=== PATIENT | female | born 1995 | race Caucasian/White ===

== ENCOUNTER 2016-03-17 18:38 | Emergency (ER) | payer BC, OTHER ==
[~2016-03-17] VITALS: Ht 170.2 cm; Wt 61.7 kg
[~2016-03-17 18:38] MED LIST: DIPH25CA79 PO; LORA10CA PO; RT-ALBUINH IH
--- OUTSIDE RECORDS SUMMARY | 2016-03-17 18:44 | XMS REPORT | Continuity of Care Document ---
Author Author [facility] Organization [facility] Address Unknown Phone Unavailable Care Team Providers Care Commutator Tester Name Role Phone BRYNN ANDERSEN MD PCP Insurance Providers Payer Name Policy Number Subscriber Name Relationship [facility] [id number] Marlena Bernabe 19 Father Advance Directives Directive Response Recorded Date/Time Advance Directives No 01/20/16 9:15pm Health Care Power of Legal Administrative Secretary No 01/20/16 9:15pm Organ Donor No 01/20/16 9:15pm Resuscitation Status Full Code 01/20/16 9:15pm Chief Complaint and Reason for Visit Chief Complaint -Female Reason for Visit [id number] Problems Active Problems Medical Problem Onset Date Status Dysfunctional uterine bleeding Unknown Acute Early stage of Unknown Acute Medications Current Home Medications Medication Dose Units Route Directions Days/Qty Instructions Start Date Albuterol Sulfate 8.5 Gm 1-2 Puff Inhalation Four Times Daily Diphenhydramine Hcl 25 Mg 25 Mg Oral Every 4HRS as needed for Ad Loratadine 10 Mg 10 Mg Oral Daily as needed for Congestion 01/20/16 Social History Social History Problem Response Recorded Date/Time Alcohol Use Denies Use 01/20/2016 9:15pm Recreational Drug Use No 01/20/2016 9:15pm Recent Foreign Travel No 01/20/2016 9:15pm Recent Infectious Disease Exposure No 01/20/2016 9:15pm Hospitalization with Isolation Denies 01/20/2016 9:15pm Smoking Status Former Smoker 01/20/2016 9:15pm Recent Hopitalizations No 01/20/2016 9:15pm Hospitalization with Isolation Denies 01/20/2016 9:15pm Query Response Start Date Stop Date Smoking Status Former Smoker Hospital Discharge Instructions No hospital discharge instructions. Plan of Care Discharge Date 01/20/16 11:11pm Disposition 01 HOME, SELF-CARE Condition at Discharge Stable Instructions/Education Provided NO INSTRUCTIONS GIVEN Prescriptions See Medication Section Referrals BRYNN ANDERSEN MD - Primary Care Physician Additional Instructions/Education 1. You must follow-up with Dr. Andersen this week. Call her office tomorrow for an appointment time to repeat your hCG levels 2. Tylenol and Benadryl as needed for cramping All discharge instructions reviewed with patient and/or family. Voiced understanding. Functional Status No functional status results. Allergies, Adverse Reactions, Alerts Allergen Type Severity Reaction Status Last Updated Penicillins ([id number]) Allergy Mild Active 12/07/15 peanut ([id number]) Allergy Mild Active 12/07/15 Ibuprofen Allergy Mild Active 12/07/15 Erythromycin base Allergy Mild Active 12/07/15 amoxicillin ([id number]) Allergy Mild Active 12/07/15 cat dander Allergy Mild Active 12/07/15 mold Allergy Mild Active 12/07/15 sesame seed Allergy Mild Active 12/07/15 shrimp Allergy Mild Active 12/07/15 MAPLE TREES Allergy Mild Active 12/07/15 Immunizations No immunization records. Vital Signs Acute Vital Signs Vital Response Date/Time Temperature (Fahrenheit) 98.6 degrees F (97.6 - 99.5) 01/20/2016 9:15pm Temperature (Calculated Celsius) 37.50940 degrees C (36.4 - 37.5) 01/20/2016 9:15pm Temperature Source Temporal 01/20/2016 9:15pm Pulse Rate (adult) 93 bpm (60 - 90) 01/20/2016 9:15pm Respiratory Rate 16 bpm (12 - 24) 01/20/2016 9:15pm O2 Sat by Pulse Oximetry 100 % (88 - 100) 01/20/2016 9:15pm Blood Pressure 113/62 mm Hg 01/20/2016 9:15pm Blood Pressure Mean 79 mm Hg 01/20/2016 9:15pm Pain Numeric Pain Scale 5-Moderate Pain 01/20/2016 9:15pm Height (Feet) 5 feet 01/20/2016 9:15pm Height (Inches) 7 inches 01/20/2016 9:15pm Height (Calculated Centimeters) 170.621540 cm 01/20/2016 9:15pm Weight (Pounds) 130 pounds 01/20/2016 9:15pm Weight (Calculated Grams) 93782.123 gm 01/20/2016 9:15pm Weight (Calculated Kilograms) 58.813096 kilograms 01/20/2016 9:15pm Capillary Refill Capillary Refill Less Than 3 Seconds 01/20/2016 9:15pm Height 5 ft 7 in Weight 130 lb Body Mass Index 20.4 kg/m^2 Results Laboratory Results Test Name Result Units Flags Reference Collection Date/Time Result Date/ Time Comments White Blood Count 10.6 10^3/uL 4.3-11.0 01/20/2016 9:11pm 01/20/2016 9: 22pm Red Blood Count 4.70 10^6/uL 4.35-5.85 01/20/2016 9:1101/20/2016 9: 22pm Hemoglobin 12.8 G/DL 11.5-16.0 01/20/2016 9:1101/20/2016 9:22pm Hematocrit 38 % 35-52 01/20/2016 9:1101/20/2016 9:22pm Mean Corpuscular Volume 82 FL 80-99 01/20/2016 9:1101/20/2016 9: 22pm Mean Corpuscular Hemoglobin 27 PG 25-34 01/20/2016 9:01/20/2016 9: 22pm Mean Corpuscular Hemoglobin Concent 33 G/DL 32-36 01/20/2016 9:1112/2015 9:22pm Red Cell Distribution Width 14.0 % 10.0-14.5 01/20/2016 9:11pm 2015 9:22pm Platelet Count 274 10^3/uL 130-400 01/20/2016 9:1101/20/2016 9:22pm Mean Platelet Volume 9.8 FL 7.4-10.4 01/20/2016 9:11pm 01/20/2016 9: 22pm Neutrophils (%) (Auto) 65 % 42-75 01/20/2016 9:1101/20/2016 9:22pm Lymphocytes (%) (Auto) 25 % 12-44 01/20/2016 9:11pm 01/20/2016 9:22pm Monocytes (%) (Auto) 7 % 0-12 01/20/2016 9:1101/20/2016 9:22pm Eosinophils (%) (Auto) 2 % 0-10 01/20/2016 9:1101/20/2016 9:22pm Basophils (%) (Auto) 0 % 0-10 01/20/2016 9:1101/20/2016 9:22pm Neutrophils # (Auto) 7.0 X 10^3 1.8-7.8 01/20/2016 9:11pm 01/20/2016 9: 22pm Lymphocytes # (Auto) 2.7 X 10^3 1.0-4.0 01/20/2016 9:1101/20/2016 9: 22pm Monocytes # (Auto) 0.7 X 10^3 0.0-1.0 01/20/2016 9:1101/20/2016 9: 22pm Eosinophils # (Auto) 0.2 10^3/uL 0.0-0.3 01/20/2016 9:11pm 01/20/2016 9 :22pm Basophils # (Auto) 0.0 10^3/uL 0.0-0.1 01/20/2016 9:1101/20/2016 9: 22pm Urine Color YELLOW 01/20/2016 9:pm 01/20/2016 9:46pm Urine Clarity SLIGHTLY CLOUDY 01/20/2016 9:15pm 01/20/2016 9:46pm Urine pH 6 5-9 01/20/2016 9:15pm 01/20/2016 9:46pm Urine Specific [place] 1.020 1.016-1.022 01/20/2016 9:15pm 2015 9:46pm Urine Protein NEGATIVE NEGATIVE 01/20/2016 9:15pm 01/20/2016 9:46pm Urine Glucose (UA) NEGATIVE NEGATIVE 01/20/2016 9:15pm 01/20/2016 9: 46pm Urine RBC (Auto) NEGATIVE NEGATIVE 01/20/2016 9:15pm 01/20/2016 9: 46pm Urine Ketones NEGATIVE NEGATIVE 01/20/2016 9:15pm 01/20/2016 9:46pm Urine Nitrite NEGATIVE NEGATIVE 01/20/2016 9:15pm 01/20/2016 9:46pm Urine Bilirubin NEGATIVE NEGATIVE 01/20/2016 9:15pm 01/20/2016 9: 46pm Urine Urobilinogen NORMAL MG/DL NORMAL 01/20/2016 9:15pm 01/20/2016 9: 46pm Urine Leukocyte Esterase NEGATIVE NEGATIVE 01/20/2016 9:15pm 2015 9:46pm Urine RBC RARE /HPF 01/20/2016 9:15pm 01/20/2016 9:46pm Urine WBC 0-2 /HPF 01/20/2016 9:15pm 01/20/2016 9:46pm Urine Bacteria TRACE /HPF 01/20/2016 9:15pm 01/20/2016 9:46pm Urine Squamous Epithelial Cells >50 /HPF * 01/20/2016 9:15pm 2015 9:46pm Urine Renal Epithelial Cells NONE /HPF 01/20/2016 9:15pm 01/20/2016 9 :46pm Urine Crystals NONE /LPF 01/20/2016 9:15pm 01/20/2016 9:46pm Urine Casts NONE /LPF 01/20/2016 9:15pm 01/20/2016 9:46pm Urine Mucus SMALL /LPF * 01/20/2016 9:15pm 01/20/2016 9:46pm Urine Culture Indicated NO 01/20/2016 9:15pm 01/20/2016 9:46pm Procedures No known history of procedures. Encounters Encounter Location Arrival/Admit Date Discharge/Depart Date Attending Provider Departed Emergency Room [facility] 01/20/16 9:04pm 01/19 11:11pm BOB CONTRERAS APRN Recent Diagnosis
[2016-03-17] MEDS ORDERED: NITR100C10 PO (19:03)
--- NOTE | 2016-03-17 19:05 | ED GU-Female ---
General Chief Complaint: -Female Stated Complaint: 12 WKS PREG/VAG BLEEDING Nursing Triage Note: Pt report passing slightly larger than a golf ball in diameter size clot approx 1 hour ago. pt o neg. LMP 11/24 Nursing Sepsis Screen: No Definite Risk Source: patient History of Present Illness Time seen by provider: 18:49 Initial Comments PT STATES SHE IS 12 WEEKS --LMP "SOMETIME IN NOVEMBER" STATES SHE WAS SITTING AT WORK, AN HOUR AGO, SHE WENT TO BATHROOM AND PASSED A LARGE CLOT NO BLEEDING OR PAIN BEFORE OR SINCE. HAS NOT GONE THROUGH ANY PADS NO PRIOR HISTORY OF SIMILAR HAS ONGOING MILD "MORNING SICKNESS" AND IS NO DIFFERENT TODAY AND IS NOT NAUSEATED AT THIS TIME PT STATES SHE HAS HAD ONGOING "BLADDER AND KIDNEY PAIN FOR THE LAST FEW WEEKS" AND WAS DIAGNOSED WITH "E.COLI" UTI AND STARTED ON MACROBID 5 DAYS AGO. HAS FREQUENT UTI'S NO FEVER PT HAS HAD A 2-3 ULTRASOUNDS SINCE BECOMING --DONE IN DR. RODRIGUEZ'S OFFICE, LAST ONE 02/26/16. SEEN IN ER 01/20/16 FOR POSITIVE TEST, NON- DIAGNOSTIC ULTRASOUND AT THAT TIME. PT STATES SHE IS BLOOD TYPE O NEGATIVE AND DR. RODRIGUEZ TOLD HER SHE SHOULD SEEK IMMEDIATE MEDICAL ATTENTION AND GET RHOGAM SHOT IF SHE HAD ANY BLEEDING. SKIMMER REVERBERATORY: DR. RODRIGUEZ Allergies and Home Medications Allergies Coded Allergies: Penicillins (Verified Allergy, Mild, 12/07/15) amoxicillin (Verified Allergy, Mild, 12/07/15) cat dander (Verified Allergy, Mild, 12/07/15) erythromycin base (Verified Allergy, Mild, 12/07/15) ibuprofen (Verified Allergy, Mild, 12/07/15) mold (Verified Allergy, Mild, 12/07/15) peanut (Verified Allergy, Mild, 12/07/15) sesame seed (Verified Allergy, Mild, 12/07/15) shrimp (Verified Allergy, Mild, 12/07/15) Uncoded Allergies: MAPLE TREES (Allergy, Mild, 12/07/15) Home Medications Albuterol Sulfate 8.5 Gm Hfa.aer.ad 1-2 PUFF IH QID (Reported) Diphenhydramine HCl 25 Mg Capsule 25 MG PO Q4H PRN PRN AD (Reported) Loratadine 10 Mg Capsule 10 MG PO DAILY PRN PRN CONGESTION (Reported) Nitrofurantoin Monohyd/M-Cryst 100 Mg Capsule #14 100 MG PO BID (Reported) x 7 days; pt on day 5 Constitutional: no symptoms reported Respiratory: no symptoms reported Cardiovascular: no symptoms reported Gastrointestinal: see HPI Genitourinary: see HPI : Yes Musculoskeletal: see HPI back pain Skin: no symptoms reported Psychiatric/Neurological: No Symptoms Reported Endocrine: No Symptoms Reported Hematologic/Lymphatic: No Symptoms Reported Past Fgspsst-Vdgovl-Galfpc Hx Patient Social History Alcohol Use: Occasionally Uses (HISTORY OF ABUSE/DAILY USE TEEN AND WAS HOSPITIALIZED FOR ALCOHOL ABUSE TEEN. NONE SINCE BECOMING ) Recreational Drug Use: No Smoking Status: Current Everyday Smoker (1 PPD--NONE SINCE BECOMING ) Type Used: Cigarettes Recent Foreign Travel: No Contact w/Someone Who Travel: No Recent Infectious Disease Expo: No Recent Hopitalizations: No Seasonal Allergies Seasonal Allergies: No Surgeries HX Surgeries: Yes (DX LAPAROSCOPY FOR ENDOMETRIOSIS) Surgeries: Appendectomy, Tonsillectomy Respiratory Hx Respiratory Disorders: Yes (USES INHALER PRN) Respiratory Disorders: Asthma Cardiovascular Hx Cardiac Disorders: No Neurological Hx Neurological Disorders: No Reproductive System : Yes Hx : 1 Hx Para: 0 Hx Total # of Abortions (Spona: 0 Hx Reproductive Disorders: Yes Female Reproductive Disorders: Endometriosis, Ovarian Cyst Genitourinary Hx Genitourinary Disorders: Yes (FREQUENT) Genitourinary Disorders: Bladder Infection Gastrointestinal Hx Gastrointestinal Disorders: No Musculoskeletal Hx Musculoskeletal Disorders: No Endocrine Hx Endocrine Disorders: No HEENT HX ENT Disorders: No Cancer Hx Cancer: No Psychosocial Hx Psychiatric Problems: No Integumentary HX Skin/Integumentary Disorder: No Blood Transfusions Hx Blood Disorders: No (BLOOD TYPE O NEGATIVE) Physical Exam Vital Signs Vital Sign - Last 12Hours 03/17/16 18:49 Temp 98.2 Pulse 88 Resp 18 B/P 119/59 Pulse Ox 99 O2 Delivery Room Air Capillary Refill : Less Than 3 Seconds General Appearance: WD/WN no apparent distress other (SITTING -STYLE. WALKS UPRIGHT AND MOVES WITHOUT DIFFICULTY. 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 no motor/sensory deficits alert normal mood/affect oriented x 3 Skin: normal color warm/dry Progress/Results/Core Measures Results/Orders Lab Results Laboratory Tests Test 03/17/16 19:10 03/17/16 19:15 Range/Units Urine Bacteria FEW H /HPF Urine Bilirubin NEGATIVE NEGATIVE Urine Casts NONE /LPF Urine Clarity SLIGHTLY CLOUDY Urine Color YELLOW Urine Crystals NONE /LPF Urine Culture Indicated YES Urine Glucose (UA) NEGATIVE NEGATIVE Urine Ketones 3+ H NEGATIVE Urine Leukocyte Esterase 1+ H NEGATIVE Urine Mucus NEGATIVE /LPF Urine Nitrite NEGATIVE NEGATIVE Urine Protein 2+ H NEGATIVE Urine RBC TNTC H /HPF Urine RBC (Auto) 5+ H NEGATIVE Urine Specific [place] 1.020 1.016-1.022 Urine Squamous Epithelial Cells 10-25 H /HPF Urine Urobilinogen NORMAL NORMAL MG/DL Urine WBC 10-25 H /HPF Urine pH 6 5-9 Anion Gap 11 5-14 MMOL/L BUN/Creatinine Ratio 10 Basophils # (Auto) 0.0 0.0-0.1 10^3/uL Basophils (%) (Auto) 0 0-10 % Blood Urea Nitrogen 6 L 7-18 MG/DL Calcium Level 9.5 8.5-10.1 MG/DL Carbon Dioxide Level 22 21-32 MMOL/L Chloride Level 102 98-107 MMOL/L Creatinine 0.59 L 0.60-1.30 MG/DL Eosinophils # (Auto) 0.1 0.0-0.3 10^3/uL Eosinophils (%) (Auto) 1 0-10 % Estimat Glomerular Filtration Rate > 60 Glucose Level 81 70-105 MG/DL Hematocrit 40 35-52 % Hemoglobin 14.0 11.5-16.0 G/DL Human Chorionic Gonadotropin, Quant 61545 H <5 MIU/ML Lymphocytes # (Auto) 1.8 1.0-4.0 X 10^3 Lymphocytes (%) (Auto) 16 12-44 % Mean Corpuscular Hemoglobin 28 25-34 PG Mean Corpuscular Hemoglobin Concent 35 32-36 G/DL Mean Corpuscular Volume 79 L 80-99 FL Mean Platelet Volume 9.8 7.4-10.4 FL Monocytes # (Auto) 0.5 0.0-1.0 X 10^3 Monocytes (%) (Auto) 5 0-12 % Neutrophils # (Auto) 8.7 H 1.8-7.8 X 10^3 Neutrophils (%) (Auto) 78 H 42-75 % Platelet Count 291 130-400 10^3/uL Potassium Level 3.5 L 3.6-5.0 MMOL/L Red Blood Count 5.03 4.35-5.85 10^6/uL Red Cell Distribution Width 13.4 10.0-14.5 % Sodium Level 135 135-145 MMOL/L White Blood Count 11.1 H 4.3-11.0 10^3/uL My Orders Orders-CARLOS ALBERTO TRIPATHIMary Johnston Abo Rh Type (03/17/16 18:47) Basic Metabolic Panel (03/17/16 18:47) Cbc With Automated Diff (03/17/16 18:47) Hcg,Quantitative (03/17/16 18:47) Us Ob Single Fetus<14 [id number] (03/17/16 18:47) Ua Culture If Indicated (03/17/16 18:59) Rh Immune Globulin (03/17/16 18:59) Rhogam Administration (03/17/16 18:59) Urine Culture (03/17/16 19:10) Vital Signs/I&O Vital Sign - Last 12Hours 03/17/16 03/17/16 03/17/16 18:49 20:23 20:47 Temp 98.2 98.3 98.3 Pulse 88 80 80 Resp 18 18 18 B/P 119/59 116/61 Pulse Ox 99 97 97 O2 Delivery Room Air Blood Pressure Mean: 79 Progress Note : Progress Note NO ACTIVE BLEEDING DURING ER STAY--DID NOT USE ANY PADS DURING STAY NO PAIN DURING ER STAY Diagnostic Imaging Comments ULTRASOUND--NORMAL 12 WEEK IUP, FHR 160'S PER TECH REPORT @ 1930 AND PER RADIOLOGIST REPORT @ 1950 Reviewed: Reviewed by Me Departure Impression Impression: Primary Impression: Threatened in early Additional Impressions: Rh negative status during Urinary tract infection RHOGAM ADMINISTRATION AT CURRENT VISIT Disposition: 01 HOME, SELF-CARE Condition: Stable Departure-Patient Inst. Referrals: BRYNN DYE MD (PCP) Primary Care Physician Patient Instructions: in Rh-Negative Women, Threatened Miscarriage ( DC), Urinary Tract Infection, Adult (DC) Add. Discharge Instructions: NOTHING IN VAGINA--NO TAMPONS, DOUCHING OR INTERCOURSE KEEP AN ACCURATE PAD COUNT--RETURN OF SOAKING MORE THAN 1 MAXI PAD AN HOUR TYLENOL NEEDED FOR PAIN CONTINUE MACROBID FOR UTI FOLLOW UP WITH DR. RODRIGUEZ TOMORROW FOR FURTHER CARE All discharge instructions reviewed with patient and/or family. Voiced understanding. LAURIE TRIPATHI DO Mar 17, 2016 19:05
[2016-03-17 19:22] LABS: BILIRUBIN,URINE NEGATIVE (NEGATIVE); KETONES,URINE 3+ (NEGATIVE); LEUKOCYTE ESTERASE ,URINE 1+ (NEGATIVE); NITRITE,URINE NEGATIVE (NEGATIVE); PH,URINE 6 (5-9); PROTEIN,URINE 2+ (NEGATIVE); UROBILINOGEN,URINE NORMAL (NORMAL)
[2016-03-17 19:32] LABS: BASOPHILS % (AUTO) 0 % (0-10); EOSINOPHILS # (AUTO) 0.1 10^3/uL (0.0-0.3); EOSINOPHILS % (AUTO) 1 % (0-10); LYMPHOCYTES # (AUTO) 1.8 X 10^3 (1.0-4.0); LYMPHOCYTES % (AUTO) 16 % (12-44); MEAN CORPUSCULAR HEMOGLOBIN 28 PG (25-34); MEAN CORPUSCULAR HGB CONC 35 G/DL (32-36); MEAN CORPUSCULAR VOLUME 79 FL (80-99); MEAN PLATELET VOLUME 9.8 FL (7.4-10.4); MONOCYTES # (AUTO) 0.5 X 10^3 (0.0-1.0); MONOCYTES % (AUTO) 5 % (0-12); NEUTROPHILS # (AUTO) 8.7 X 10^3 (1.8-7.8); NEUTROPHILS % (AUTO) 78 % (42-75); PLATELET COUNT 291 10^3/uL (130-400); RED BLOOD COUNT 5.03 10^6/uL (4.35-5.85); RED CELL DISTRIBUTION WIDTH 13.4 % (10.0-14.5); WHITE BLOOD COUNT 11.1 10^3/uL (4.3-11.0)
[2016-03-17 19:39] LABS: ANION GAP 11 MMOL/L (5-14); BLOOD UREA NITROGEN 6 MG/DL (7-18); BUN/CREATININE RATIO 10; CALCIUM 9.5 MG/DL (8.5-10.1); CARBON DIOXIDE 22 MMOL/L (21-32); CHLORIDE 102 MMOL/L (98-107); CREATININE SERUM 0.59 MG/DL (0.60-1.30); GFR ESTIMATED > 60; GLUCOSE 81 MG/DL (70-105); POTASSIUM 3.5 MMOL/L (3.6-5.0); SODIUM 135 MMOL/L (135-145)
--- NOTE | 2016-03-17 19:42 | Diagnostic Imaging Report ---
INDICATION: Vaginal bleeding FINDINGS: Transabdominal imaging of the gravid uterus demonstrates a single live intrauterine with crown-rump length consistent with a gestational age of 12 weeks 1 day. The heart rate is normal at 167 beats per minute. Placenta is anterior with no previa. No free fluid is present. IMPRESSION: There is a single live intrauterine . The placenta appears normal. Dictated by: Dictated on workstation # [id number]
[2016-03-17 20:23] VITALS: BP 116/61
[2016-03-17 20:47] VITALS: BP 116/61
== END 2016-03-17 20:51 | disposition home or self-care (01) ==
LOC: EDUNIT# 18:38 → ER 18:40
DX: O20.0 Threatened abortion (principal); O99.331 Smoking (tobacco) complicating pregnancy, first trimester; O36.0190 Maternal care for anti-D [Rh] antibodies, unspecified trimester, not applicable or unspecified; Z3A.12 12 weeks gestation of pregnancy
CPT/HCPCS: 36415; 76801; 80048; 81000; 84702; 85025; 86900; 86901; 87088; 96372; 99282

== ENCOUNTER 2016-04-25 18:12 | Emergency (ER) | payer OTHER ==
[~2016-04-25] VITALS: Ht 170.2 cm; Wt 62.6 kg
[~2016-04-25 18:12] MED LIST changes: +NITR100C10 PO
--- OUTSIDE RECORDS SUMMARY | 2016-04-25 18:18 | XMS REPORT | Continuity of Care Document ---
Author Author [facility] Organization [facility] Address Unknown Phone Unavailable Care Team Providers Care Thermal Cutter Hand Name Role Phone BRYNN ANDERSEN MD PCP Insurance Providers Payer Name Policy Number Subscriber Name Relationship [facility] [id number] Marlena Bernabe 19 Father Advance Directives Directive Response Recorded Date/Time Advance Directives No 01/20/16 9:15pm Health Care Power of Field Return Repairer No 01/20/16 9:15pm Organ Donor No 01/20/16 9:15pm Resuscitation Status Full Code 01/20/16 9:15pm Chief Complaint and Reason for Visit Chief Complaint -Female Reason for Visit [id number] Problems Active Problems Medical Problem Onset Date [...] Type Severity Reaction Status Last Updated Penicillins ([id number]) Allergy Mild Active 12/07/15 peanut ([id number]) Allergy Mild Active 12/07/15 Ibuprofen Allergy Mild Active 12/07/15 Erythromycin base Allergy Mild Active 12/07/15 amoxicillin ([id number]) Allergy Mild Active 12/07/15 cat dander Allergy Mild Active 12/07/15 mold Allergy Mild Active 12/07/15 sesame seed Allergy Mild Active 12/07/15 shrimp Allergy Mild Active 12/07/15 MAPLE TREES Allergy Mild Active 12/07/15 Immunizations No immunization records. Vital Signs Acute Vital Signs Vital Response Date/Time Temperature (Fahrenheit) 98.6 degrees F (97.6 - 99.5) 01/20/2016 9:15pm Temperature (Calculated Celsius) 37.19847 degrees C (36.4 - 37.5) 01/20/2016 9:15pm [...] 7 inches 01/20/2016 9:15pm Height (Calculated Centimeters) 170.761010 cm 01/20/2016 9:15pm Weight (Pounds) 130 pounds 01/20/2016 9:15pm Weight (Calculated Grams) 77996.123 gm 01/20/2016 9:15pm Weight (Calculated Kilograms) 58.958186 kilograms 01/20/2016 9:15pm Capillary Refill Capillary Refill [...] 5-9 01/20/2016 9:15pm 01/20/2016 9:46pm Urine Specific [place] 1.020 1.016-1.022 01/20/2016 9:15pm 2015 9:46pm Urine [...] Date Attending Provider Departed Emergency Room [facility] 01/20/16 9:04pm 01/19 11:11pm BOB CONTRERAS APRN Recent Diagnosis
[2016-04-25 18:44] LABS: BILIRUBIN,URINE NEGATIVE (NEGATIVE); KETONES,URINE NEGATIVE (NEGATIVE); LEUKOCYTE ESTERASE ,URINE 1+ (NEGATIVE); NITRITE,URINE NEGATIVE (NEGATIVE); PH,URINE 7 (5-9); PROTEIN,URINE NEGATIVE (NEGATIVE); UROBILINOGEN,URINE NORMAL (NORMAL)
[2016-04-25 18:49] LABS: BASOPHILS % (AUTO) 0 % (0-10); EOSINOPHILS # (AUTO) 0.1 10^3/uL (0.0-0.3); EOSINOPHILS % (AUTO) 1 % (0-10); LYMPHOCYTES # (AUTO) 1.6 X 10^3 (1.0-4.0); LYMPHOCYTES % (AUTO) 14 % (12-44); MEAN CORPUSCULAR HEMOGLOBIN 28 PG (25-34); MEAN CORPUSCULAR HGB CONC 35 G/DL (32-36); MEAN CORPUSCULAR VOLUME 80 FL (80-99); MEAN PLATELET VOLUME 9.8 FL (7.4-10.4); MONOCYTES # (AUTO) 0.6 X 10^3 (0.0-1.0); MONOCYTES % (AUTO) 6 % (0-12); NEUTROPHILS % (AUTO) 80 % (42-75); PLATELET COUNT 242 10^3/uL (130-400); RED BLOOD COUNT 4.58 10^6/uL (4.35-5.85); RED CELL DISTRIBUTION WIDTH 13.5 % (10.0-14.5); WHITE BLOOD COUNT 11.3 10^3/uL (4.3-11.0)
[2016-04-25 18:53] LABS: WBC,URINE 0-2 /HPF
[2016-04-25 19:05] LABS: ANION GAP 9 MMOL/L (5-14); BLOOD UREA NITROGEN 5 MG/DL (7-18); BUN/CREATININE RATIO 8; CALCIUM 8.9 MG/DL (8.5-10.1); CARBON DIOXIDE 21 MMOL/L (21-32); CHLORIDE 109 MMOL/L (98-107); CREATININE SERUM 0.59 MG/DL (0.60-1.30); GFR ESTIMATED > 60; GLUCOSE 89 MG/DL (70-105); POTASSIUM 3.3 MMOL/L (3.6-5.0)
[2016-04-25 19:15] LABS: SODIUM 139 MMOL/L (135-145)
--- NOTE | 2016-04-25 19:37 | ED GU-Female ---
General Chief Complaint: -Female Stated Complaint: R LEG AND CERVEX PAIN, FALL 17W Nursing Triage Note: PT REPORTS SHE STARTED HAVING CRAMPING LAST NIGHT. PT STATES SHE HASNT FELT MOVEMENT ALL DAY AND FELL THIS EVENING IN THE KITCHEN AND NOW IS HAVING PELVIC PAIN. PT DENIES ANY SPOTTING AT THIS TIME. Nursing Sepsis Screen: No Definite Risk Source: patient History of Present Illness Time seen by provider: 18:30 Initial Comments PT STATES SHE WAS WALKING IN KITCHEN AND SLIPPED ON WET FLOOR AND "AMAN DID THE SPLITS" AND LANDED SOFTLY ON HER BUTTOCKS--NO DIRECT TRAUMA TO ANY PART OF BODY OCCURRED AT 1600 TODAY PT STATES SHE WENT TO WORK AND THEN STATES "MY CERVIX STARTED HAVING SHARP PAINS AND I STARTED HAVING CRAMPING" ALSO C/O PAIN TO RIGHT UPPER THIGH/GROIN/ILIAC AREA STATES SHE HAS HAD CRAMPING SINCE YESTERDAY AND STATES SHE "HASN'T HAD ANY MOVEMENT TODAY" --PT IS 17 WEEKS NO VAGINAL BLEEDING OR DISCHARGE NO URINARY SYMPTOMS NO NAUSEA/VOMITING PT HAS ONGOING LOWER BACK DISCOMFORT-NO DIFFERENT TODAY NO PARESTHESIAS OR MOTOR DEFICITS PT SEEN HERE 01/19 AND 03/17/16 FOR THIS -SPOTTING ON 03/17/16 BLOOD TYPE IS O NEGATIVE AND RECEIVED RHOGAM 03/17/[address] RODRIGUEZ 5 WEEKS AGO, NEXT APPOINTMENT IS Thursday04/29/16 Allergies and Home Medications Allergies Coded Allergies: Penicillins (Verified Allergy, Mild, 12/07/15) amoxicillin (Verified Allergy, Mild, 12/07/15) cat dander (Verified Allergy, Mild, 12/07/15) erythromycin base (Verified Allergy, Mild, 12/07/15) ibuprofen (Verified Allergy, Mild, 12/07/15) mold (Verified Allergy, Mild, 12/07/15) peanut (Verified Allergy, Mild, 12/07/15) sesame seed (Verified Allergy, Mild, 12/07/15) shrimp (Verified Allergy, Mild, 12/07/15) Uncoded Allergies: MAPLE TREES (Allergy, Mild, 12/07/15) Home Medications Albuterol Sulfate 8.5 Gm Hfa.aer.ad 1-2 PUFF IH QID (Reported) Loratadine 10 Mg Capsule 10 MG PO DAILY PRN PRN CONGESTION (Reported) Constitutional: no symptoms reported Respiratory: no symptoms reported Cardiovascular: no symptoms reported Gastrointestinal: see HPI Genitourinary: see HPI : Yes Musculoskeletal: see HPI Skin: no symptoms reported Psychiatric/Neurological: No Symptoms Reported Endocrine: No Symptoms Reported Hematologic/Lymphatic: No Symptoms Reported Past Jaaciuz-Zewsef-Gcrvpc Hx Patient Social History Alcohol Use: Past History (HISTORY OF ABUSE/DAILY USE TEEN AND WAS HOSPITALIZED FOR ALCOHOL ABUSE TEEN. DENIES ANY USE SINCE BECOMING ) Recreational Drug Use: No Smoking Status: Former Smoker (1 PPD, NONE SINCE BECOMING ) Type Used: Cigarettes Recent Foreign Travel: No Contact w/Someone Who Travel: No Recent Infectious Disease Expo: No Recent Hopitalizations: No Immunizations Up To Date Tetanus Booster (TDap): Less than 5yrs PED Vaccines UTD: Yes Date of Pneumonia Vaccine: Nov 10, 2015 Date of Influenza Vaccine: Nov 10, 2015 Seasonal Allergies Seasonal Allergies: No Surgeries HX Surgeries: Yes (DX LAPAROSCOPY FOR ENDOMETRIOSIS) Surgeries: Appendectomy, Tonsillectomy Respiratory Hx Respiratory Disorders: Yes (USES INHALER PRN) Respiratory Disorders: Asthma Cardiovascular Hx Cardiac Disorders: No Neurological Hx Neurological Disorders: No Reproductive System : Yes Hx : 1 Hx Para: 0 Hx Total # of Abortions (Spona: 0 Hx Reproductive Disorders: Yes Female Reproductive Disorders: Endometriosis, Ovarian Cyst Genitourinary Hx Genitourinary Disorders: Yes (FREQUENT) Genitourinary Disorders: Bladder Infection Gastrointestinal Hx Gastrointestinal Disorders: No Musculoskeletal Hx Musculoskeletal Disorders: No Endocrine Hx Endocrine Disorders: No HEENT HX ENT Disorders: No Cancer Hx Cancer: No Psychosocial Hx Psychiatric Problems: Yes Behavioral Health Disorders: Anxiety, Bipolar, Depression Integumentary HX Skin/Integumentary Disorder: Yes Skin/Integumentary Disorders: Eczema Blood Transfusions Hx Blood Disorders: No (BLOOD TYPE O NEGATIVE) Physical Exam Vital Signs Vital Sign - Last 12Hours 04/25/16 18:27 Temp 98.5 Pulse 104 Resp 20 B/P 125/68 Pulse Ox 97 Capillary Refill : Less Than 3 Seconds General Appearance: WD/WN no apparent distress other (WALKS UPRIGHT WITHOUT DIFFICULTY) Neck: normal inspection Cardiovascular: regular rate, rhythm no murmur Respiratory: chest non-tender normal breath sounds no respiratory distress Gastrointestinal: normal bowel sounds soft no organomegaly no pulsatile mass tenderness (LOWER ABDOMEN) Back: no CVA tenderness no vertebral tenderness other (MILD TENDERNESS TO RIGHT ILIAC AREA POSTERIOR AND ANTERIOR) Extremities: normal range of motion no pedal edema no calf tenderness normal capillary refill other (TENDERNESS TO RIGHT ILIAC AREA AND RIGHT GROIN AND MEDIAL AND LATERAL UPPER THIGH) 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/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: 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-XII nml as tested no motor/sensory deficits alert normal mood/affect oriented x 3 Skin: normal color warm/dry tattoos/piercings (MULTIPLE TATTOOS) other (NO EXTERNAL EVIDENCE OF TRAUMA ANYWHERE) Focused Exam Lactic Acid Level Laboratory Tests Test 04/25/16 18:35 Anion Gap 9MMOL/L (5-14) BUN/Creatinine Ratio 8 Blood Urea Nitrogen 5MG/DL (7-18) L Calcium Level 8.9MG/DL (8.5-10.1) Carbon Dioxide Level 21MMOL/L (21-32) Chloride Level 109MMOL/L (98-107) H Creatinine 0.59MG/DL (0.60-1.30) L Estimat Glomerular Filtration Rate > 60 Glucose Level 89MG/DL (70-105) Potassium Level 3.3MMOL/L (3.6-5.0) L Sodium Level 139MMOL/L (135-145) Progress/Results/Core Measures Results/Orders Lab Results Laboratory Tests Test 04/25/16 18:35 Range/Units Anion Gap 9 5-14 MMOL/L BUN/Creatinine Ratio 8 Basophils # (Auto) 0.0 0.0-0.1 10^3/uL Basophils (%) (Auto) 0 0-10 % Blood Urea Nitrogen 5 L 7-18 MG/DL Calcium Level 8.9 8.5-10.1 MG/DL Carbon Dioxide Level 21 21-32 MMOL/L Chloride Level 109 H 98-107 MMOL/L Creatinine 0.59 L 0.60-1.30 MG/DL Eosinophils # (Auto) 0.1 0.0-0.3 10^3/uL Eosinophils (%) (Auto) 1 0-10 % Estimat Glomerular Filtration Rate > 60 Glucose Level 89 70-105 MG/DL Hematocrit 37 35-52 % Hemoglobin 12.8 11.5-16.0 G/DL Lymphocytes # (Auto) 1.6 1.0-4.0 X 10^3 Lymphocytes (%) (Auto) 14 12-44 % Mean Corpuscular Hemoglobin 28 25-34 PG Mean Corpuscular Hemoglobin Concent 35 32-36 G/DL Mean Corpuscular Volume 80 80-99 FL Mean Platelet Volume 9.8 7.4-10.4 FL Monocytes # (Auto) 0.6 0.0-1.0 X 10^3 Monocytes (%) (Auto) 6 0-12 % Neutrophils # (Auto) 9.0 H 1.8-7.8 X 10^3 Neutrophils (%) (Auto) 80 H 42-75 % Platelet Count 242 130-400 10^3/uL Potassium Level 3.3 L 3.6-5.0 MMOL/L Red Blood Count 4.58 4.35-5.85 10^6/uL Red Cell Distribution Width 13.5 10.0-14.5 % Sodium Level 139 135-145 MMOL/L Urine Bacteria FEW H /HPF Urine Bilirubin NEGATIVE NEGATIVE Urine Casts NONE /LPF Urine Clarity SLIGHTLY CLOUDY Urine Color YELLOW Urine Crystals NONE /LPF Urine Culture Indicated NO Urine Glucose (UA) NEGATIVE NEGATIVE Urine Ketones NEGATIVE NEGATIVE Urine Leukocyte Esterase 1+ H NEGATIVE Urine Mucus NEGATIVE /LPF Urine Nitrite NEGATIVE NEGATIVE Urine Protein NEGATIVE NEGATIVE Urine RBC NONE /HPF Urine RBC (Auto) NEGATIVE NEGATIVE Urine Specific [place] 1.010 L 1.016-1.022 Urine Squamous Epithelial Cells 10-25 H /HPF Urine Urobilinogen NORMAL NORMAL MG/DL Urine WBC 0-2 /HPF Urine pH 7 5-9 White Blood Count 11.3 H 4.3-11.0 10^3/uL My Orders Orders-LAURIE TRIPATHI DO Basic Metabolic Panel (04/25/16 18:34) Cbc With Automated Diff (04/25/16 18:34) Ua Culture If Indicated (04/25/16 18:34) Limited [id number] (04/25/16 18:34) Vital Signs/I&O Vital Sign - Last 12Hours 04/25/16 18:27 Temp 98.5 Pulse 104 Resp 20 B/P 125/68 Pulse Ox 97 Blood Pressure Mean: 87 Departure Impression Impression: Primary Impression: Ilio-inguinal strain Additional Impressions: 17 weeks gestation of Fall Disposition: 01 HOME, SELF-CARE Condition: Stable Departure-Patient Inst. Referrals: BRYNN DYE MD (PCP/Family) Primary Care Physician Patient Instructions: Activity During , Groin Strain (DC), Preventing Falls Add. Discharge Instructions: TYLENOL NEEDED FOR PAIN FOLLOW UP WITH DR. DYE ON THURSDAY SCHEDULED All discharge instructions reviewed with patient and/or family. Voiced understanding. LAURIE TRIPATHI DO Apr 25, 2016 19:37
--- NOTE | 2016-04-25 19:41 | Diagnostic Imaging Report ---
INDICATION: female slipped on wet floor and fell, pelvic pain, evaluate well-being. COMPARISON: None. DISCUSSION: Limited targeted transabdominal sonographic evaluation of the gravid uterus was performed. Single live intrauterine at 17 weeks 6 days by last menstrual cycle. EDC is 09/27/2016. presentation is breech. heart rate measures 143 beats per minute. Placenta is located anteriorly with no placenta previa. Normal amniotic fluid index. No placental abruption or other acute abnormality identified. No abnormal adnexal mass or fluid. IMPRESSION: 1. Single live intrauterine at 17 weeks 6 days. No acute abnormality identified. Dictated by: Dictated on workstation # [id number]
[2016-04-25 19:46] VITALS: BP 0/0
== END 2016-04-25 19:46 | disposition home or self-care (01) ==
LOC: EDUNIT# 18:12 → ER 18:14
DX: S76.219A Strain of adductor muscle, fascia and tendon of unspecified thigh, initial encounter (principal); Z3A.17 17 weeks gestation of pregnancy; Z87.891 Personal history of nicotine dependence; W01.0XXA Fall on same level from slipping, tripping and stumbling without subsequent striking against object, initial encounter; Y92.010 Kitchen of single-family (private) house as the place of occurrence of the external cause; Y99.8 Other external cause status
CPT/HCPCS: 36415; 76815; 80048; 81000; 85025; 99282

== ENCOUNTER → 2016-04-29 | Outpatient (CLI) | payer OTHER ==
[~2016-04-29] MED LIST changes: +MONT10TA21 PO; +MULT1TAB69 PO; +NITR-65 PO
--- OUTSIDE RECORDS SUMMARY | 2016-04-29 09:21 | XMS REPORT | Continuity of Care Document ---
Author Author [facility] Organization [facility] Address Unknown Phone Unavailable Care Team Providers Care Logging Engineer Name Role Phone BRYNN ANDERSEN MD PCP Insurance Providers Payer Name Policy Number Subscriber Name Relationship [facility] [id number] Marlena Bernabe 19 Father Advance Directives Directive Response Recorded Date/Time Advance Directives No 01/20/16 9:15pm Health Care Power of Search Analyst No 01/20/16 9:15pm Organ Donor No 01/20/16 9:15pm Resuscitation Status Full Code 01/20/16 9:15pm Chief Complaint and Reason for Visit Chief Complaint -Female Reason for Visit [id number] Problems Active Problems Medical Problem Onset Date [...] Type Severity Reaction Status Last Updated Penicillins ([id number]) Allergy Mild Active 12/07/15 peanut ([id number]) Allergy Mild Active 12/07/15 Ibuprofen Allergy Mild Active 12/07/15 Erythromycin base Allergy Mild Active 12/07/15 amoxicillin ([id number]) Allergy Mild Active 12/07/15 cat dander Allergy Mild Active 12/07/15 mold Allergy Mild Active 12/07/15 sesame seed Allergy Mild Active 12/07/15 shrimp Allergy Mild Active 12/07/15 MAPLE TREES Allergy Mild Active 12/07/15 Immunizations No immunization records. Vital Signs Acute Vital Signs Vital Response Date/Time Temperature (Fahrenheit) 98.6 degrees F (97.6 - 99.5) 01/20/2016 9:15pm Temperature (Calculated Celsius) 37.52242 degrees C (36.4 - 37.5) 01/20/2016 9:15pm [...] 7 inches 01/20/2016 9:15pm Height (Calculated Centimeters) 170.507451 cm 01/20/2016 9:15pm Weight (Pounds) 130 pounds 01/20/2016 9:15pm Weight (Calculated Grams) 45810.123 gm 01/20/2016 9:15pm Weight (Calculated Kilograms) 58.530442 kilograms 01/20/2016 9:15pm Capillary Refill Capillary Refill [...] 5-9 01/20/2016 9:15pm 01/20/2016 9:46pm Urine Specific [place] 1.020 1.016-1.022 01/20/2016 9:15pm 2015 9:46pm Urine [...] Date Attending Provider Departed Emergency Room [facility] 01/20/16 9:04pm 01/19 11:11pm BOB CONTRERAS APRN Recent Diagnosis
--- NOTE | 2016-04-29 12:03 | Diagnostic Imaging Report ---
INDICATION: survey. COMPARISON: 04/25/2016 and 03/17/2016. DISCUSSION: Transabdominal sonographic evaluation of the gravid uterus was performed. The cervix measures 3.9 cm. Single live intrauterine at 18 weeks 4 days by sonographic measurements. Appropriate interval growth. EDC by the first ultrasound is 09/27/2016. presentation is breech. Normal amniotic fluid index. Grade 1 placenta is located anteriorly with no placenta previa. heart rate measures 153 beats per minute. There was poor visualization of the bladder, four-chamber heart, and three-vessel cord due to positioning. Recommend short-term sonographic followup. There was good visualization of the kidneys, stomach, brain, spine, cord insertion, and extremities. Biparietal diameter measures 4.0 cm. Head circumference measures 15.4 cm. Abdominal circumference measures 13.7 cm. Femur length measures 2.7 cm. Estimated weight is 248 g. IMPRESSION: 1. Single live intrauterine at 18 weeks 4 days by sonographic measurements. 2. Poor visualization of the bladder, four-chamber heart, three-vessel cord due to positioning. Recommend short-term sonographic followup. The remainder of the anatomical survey appears within normal limits. Dictated by: Dictated on workstation # [id number]
== END ==
LOC: RAD 09:18
PROVIDERS: ATTEND Obstetrics & Gynecology
DX: Z36 Encounter for antenatal screening of mother (principal); Z3A.18 18 weeks gestation of pregnancy
CPT/HCPCS: 76805

== ENCOUNTER → 2016-05-28 | Outpatient (CLI) | payer OTHER ==
--- NOTE | 2016-05-28 14:42 | Diagnostic Imaging Report ---
INDICATION: Followup anatomy survey of structures not well seen on initial anatomy survey. COMPARISON: 04/29/2016, anatomy survey. TECHNIQUE: Transabdominal grayscale and color Doppler imaging of the gravid uterus was performed. FINDINGS: A single live intrauterine is again noted. The heart rate is 142 beats per minute. The fetus is cephalic in presentation. Placenta is anterior in location. No evidence of previa. Targeted limited anatomy survey was performed. This demonstrated a normal four-chamber heart view, normal urinary bladder and three-vessel cord. IMPRESSION: 1. Targeted anatomy survey demonstrates a normal four-chamber heart, normal three-vessel cord, and normal urinary bladder. 2. heart rate is 142 beats per minute. Dictated by: Dictated on workstation # [id number]
== END ==
LOC: RAD 09:29
PROVIDERS: ATTEND Obstetrics & Gynecology
DX: O28.3 Abnormal ultrasonic finding on antenatal screening of mother (principal)
CPT/HCPCS: 76816

== ENCOUNTER 2016-06-21 22:00 | Outpatient (CLI) | payer OTHER ==
[~2016-06-21] VITALS: Ht 170.2 cm; Wt 73.5 kg
[~2016-06-21 22:00] MED LIST changes: -MONT10TA21 PO; -MULT1TAB69 PO; -NITR-65 PO
[2016-06-21 22:18] VITALS: BP 111/56
[2016-06-21 22:32] LABS: BILIRUBIN,URINE NEGATIVE (NEGATIVE); KETONES,URINE NEGATIVE (NEGATIVE); LEUKOCYTE ESTERASE ,URINE 1+ (NEGATIVE); NITRITE,URINE NEGATIVE (NEGATIVE); PH,URINE 6 (5-9); PROTEIN,URINE NEGATIVE (NEGATIVE); UROBILINOGEN,URINE NORMAL (NORMAL)
[2016-06-21] MEDS ORDERED: MONT10TA21 PO (22:37)
[2016-06-21] MEDS ORDERED: MULT1TAB69 PO (22:37)
[2016-06-21] MEDS ORDERED: NITR-65 PO (23:17)
--- NOTE | 2016-06-23 11:26 | Physician Query-Final Dx ---
VANDANA DIETRICH 06/23/16 1126: Clinic Account Progress/Dx Physician Query: Please give diagnosis Date of Service June 21, 2016 at 22:00 FABRIZIO NAVAS DO 06/23/16 1807: Clinic Account Progress/Dx DIAGNOSIS: Diagnosis 26 week IUP Pelvic cramping and pains VANDANA DIETRICH June 23, 2016 11:26 FABRIZIO NAVAS DO June 23, 2016 18:07
== END 2016-06-21 23:27 | disposition home or self-care (01) ==
LOC: LDRP 22:00 → WSo 22:00
PROVIDERS: ATTEND Obstetrics & Gynecology
DX: O99.89 Other specified diseases and conditions complicating pregnancy, childbirth and the puerperium (principal); R10.2 Pelvic and perineal pain; Z3A.26 26 weeks gestation of pregnancy
CPT/HCPCS: 81000; 87088; 99213

== ENCOUNTER → 2016-07-16 | Outpatient (CLI) | payer OTHER ==
[~2016-07-16] MED LIST changes: +MONT10TA21 PO; +MULT1TAB69 PO; +NITR-65 PO
--- NOTE | 2016-07-16 19:28 | Diagnostic Imaging Report ---
INDICATION: Assess growth, measuring small. EXAMINATION: OB ultrasound. COMPARISON: 05/28/2016. FINDINGS: Armstrong gestation is in cephalic position, today measuring 29 weeks 3 days, reflecting normal growth from previous exam. Amniotic fluid index is 17.6, within normal limits. The anterior placenta is unremarkable with no abruption or previa. Regular heart rate at 152 beats per minute is present. No pathological finding on the anatomical survey. IMPRESSION: Normal growth armstrong viable IUP measures today 29 weeks 3 days. Dictated by: Dictated on workstation # [id number]
== END ==
LOC: RAD 12:26
PROVIDERS: ATTEND Obstetrics & Gynecology
DX: O99.89 Other specified diseases and conditions complicating pregnancy, childbirth and the puerperium (principal); O26.843 Uterine size-date discrepancy, third trimester; Z3A.29 29 weeks gestation of pregnancy
CPT/HCPCS: 76816

== ENCOUNTER 2016-07-17 19:11 | Outpatient (CLI) | payer OTHER ==
[~2016-07-17] VITALS: Ht 170.2 cm; Wt 75.1 kg
[2016-07-17 19:55] VITALS: BP 113/54
[2016-07-17 20:19] LABS: PH,URINE 7 (5-9); PROTEIN,URINE NEGATIVE (NEGATIVE)
[2016-07-17 20:20] LABS: BILIRUBIN,URINE NEGATIVE (NEGATIVE); KETONES,URINE NEGATIVE (NEGATIVE); LEUKOCYTE ESTERASE ,URINE 1+ (NEGATIVE); NITRITE,URINE NEGATIVE (NEGATIVE); UROBILINOGEN,URINE NORMAL (NORMAL); WBC,URINE 0-2 /HPF
[2016-07-17 20:25] VITALS: BP 109/53
[2016-07-17 20:55] VITALS: BP 108/56
[2016-07-17 21:30] VITALS: BP 108/56
--- NOTE | 2016-07-18 16:22 | Physician Query-Final Dx ---
VANDANA DIETRICH 07/18/16 1622: Clinic Account Progress/Dx Physician Query: Please give diagnosis Date of Service Jul 17, 2016 at 19:11 FABRIZIO NAVAS DO 07/22/16 0812: Clinic Account Progress/Dx DIAGNOSIS: Diagnosis 29 week IUP Low back pain in VANDANA DIETRICH Jul 18, 2016 16:22 FABRIZIO NAVAS DO Jul 22, 2016 08:12
== END 2016-07-17 21:40 | disposition home or self-care (01) ==
LOC: WSo 19:11 → LDRP 19:11 → WSo 21:40
PROVIDERS: ATTEND Obstetrics & Gynecology
DX: O99.89 Other specified diseases and conditions complicating pregnancy, childbirth and the puerperium (principal); M54.5 Low back pain; Z3A.29 29 weeks gestation of pregnancy
CPT/HCPCS: 81000; 99213

== ENCOUNTER 2016-08-11 19:09 | Outpatient (CLI) | payer OTHER ==
[~2016-08-11] VITALS: Ht 170.2 cm; Wt 77.6 kg
[2016-08-11 19:32] VITALS: BP 120/71
[2016-08-11 19:49] LABS: BILIRUBIN,URINE NEGATIVE (NEGATIVE); KETONES,URINE NEGATIVE (NEGATIVE); LEUKOCYTE ESTERASE ,URINE NEGATIVE (NEGATIVE); NITRITE,URINE NEGATIVE (NEGATIVE); PH,URINE 7 (5-9); PROTEIN,URINE NEGATIVE (NEGATIVE); UROBILINOGEN,URINE NORMAL (NORMAL)
[2016-08-11] MEDS ORDERED: PEDI1TAB29 PO (20:07)
[2016-08-11 20:13] LABS: SQUAMOUS EPITHELIAL CELL,UR RARE /HPF
[2016-08-11] MEDS ORDERED: D5 LR IV SOLUTION 1,000 ML IV ONE (20:45)
[2016-08-11 21:39] LABS: BASOPHILS % (AUTO) 0 % (0-10); EOSINOPHILS # (AUTO) 0.3 10^3/uL (0.0-0.3); EOSINOPHILS % (AUTO) 3 % (0-10); LYMPHOCYTES # (AUTO) 1.4 X 10^3 (1.0-4.0); LYMPHOCYTES % (AUTO) 14 % (12-44); MEAN CORPUSCULAR HEMOGLOBIN 28 PG (25-34); MEAN CORPUSCULAR HGB CONC 33 G/DL (32-36); MEAN CORPUSCULAR VOLUME 82 FL (80-99); MEAN PLATELET VOLUME 10.1 FL (7.4-10.4); MONOCYTES # (AUTO) 0.5 X 10^3 (0.0-1.0); MONOCYTES % (AUTO) 5 % (0-12); NEUTROPHILS # (AUTO) 7.6 X 10^3 (1.8-7.8); NEUTROPHILS % (AUTO) 77 % (42-75); PLATELET COUNT 231 10^3/uL (130-400); RED BLOOD COUNT 3.85 10^6/uL (4.35-5.85); RED CELL DISTRIBUTION WIDTH 12.8 % (10.0-14.5); WHITE BLOOD COUNT 9.8 10^3/uL (4.3-11.0)
[2016-08-11 22:00] LABS: ALANINE AMINOTRANSFERASE 9 U/L (0-55); ALBUMIN 3.1 GM/DL (3.2-4.5); ANION GAP 9 MMOL/L (5-14); ASPARTATE AMINO TRANSFERASE 14 U/L (5-34); BILIRUBIN,TOTAL 0.3 MG/DL (0.1-1.0); BLOOD UREA NITROGEN 3 MG/DL (7-18); BUN/CREATININE RATIO 6; CALCIUM 8.4 MG/DL (8.5-10.1); CARBON DIOXIDE 23 MMOL/L (21-32); CHLORIDE 106 MMOL/L (98-107); CREATININE SERUM 0.53 MG/DL (0.60-1.30); GFR ESTIMATED > 60; GLUCOSE 104 MG/DL (70-105); POTASSIUM 3.1 MMOL/L (3.6-5.0); SODIUM 138 MMOL/L (135-145); TOTAL PROTEIN 5.7 GM/DL (6.4-8.2)
[2016-08-11] MEDS ORDERED: KCL 20 MEQ TAB (K-DUR) PO ONE (22:30)
[2016-08-11 22:35] VITALS: BP 115/62
[2016-08-11 22:45] VITALS: BP 115/62
--- NOTE | 2016-08-12 09:58 | Diagnostic Imaging Report ---
INDICATION: Decreased movement and abdominal pain. TECHNIQUE: The fetus was observed by the tea room manager for purposes of a nonstress biophysical profile evaluation. FINDINGS: Intrauterine is currently in a cephalic presentation. The placenta is along the anterior aspect without evidence for previa. cardiac activity at 144 beats per minute. Normal amount of amniotic fluid with an index at 9.6 cm. Biophysical Profile Scoring: breathin Body movement: 2 tone: 2 Amniotic fluid: 2 Total BPP Score: 8/8 IMPRESSION: 1. Normal biophysical profile score. A preliminary report was provided by Charmaine. Dictated by: Dictated on workstation # [id number]
--- NOTE | 2016-08-13 14:17 | Physician Query-Final Dx ---
KULWINDER BASHIR 08/13/16 1417: Clinic Account Progress/Dx Physician Query: Please give diagnosis Date of Service Aug 11, 2016 at 19:09 FABRIZIO NAVAS DO 08/14/16 0651: Clinic Account Progress/Dx DIAGNOSIS: Diagnosis 33 week IUP Back pain Pelvic pressure KULWINDER BASHIR Aug 13, 2016 14:17 FABRIZIO NAVAS DO Aug 14, 2016 06:51
== END 2016-08-11 22:45 | disposition home or self-care (01) ==
LOC: WSo 19:09 → LDRP 19:09 → WSo 22:45
PROVIDERS: ATTEND Obstetrics & Gynecology
DX: O99.89 Other specified diseases and conditions complicating pregnancy, childbirth and the puerperium (principal); M54.9 Dorsalgia, unspecified; R10.2 Pelvic and perineal pain; Z3A.33 33 weeks gestation of pregnancy
CPT/HCPCS: 36415; 76819; 80053; 81000; 85025; 96360; 99213

== ENCOUNTER 2016-08-26 00:23 | Outpatient (CLI) | payer OTHER ==
[~2016-08-26] VITALS: Ht 170.2 cm; Wt 78.2 kg
[~2016-08-26 00:23] MED LIST changes: +PEDI1TAB29 PO
[2016-08-26 00:48] VITALS: BP 145/79
[2016-08-26 01:05] VITALS: BP 127/59
--- NOTE | 2016-08-27 10:48 | Physician Query-Final Dx ---
VANDANA DIETRICH 08/27/16 1048: Clinic Account Progress/Dx Physician Query: Please give diagnosis Date of Service Aug 26, 2016 at 00:23 STACEY ROSALES MD 08/27/16 2344: Clinic Account Progress/Dx DIAGNOSIS: Diagnosis false labor VANDANA DIETRICH Aug 27, 2016 10:48 STACEY ROSALES MD Aug 27, 2016 23:44
== END 2016-08-26 01:30 | disposition home or self-care (01) ==
LOC: WSo 00:23 → LDRP 00:24 → WSo 01:30
PROVIDERS: ATTEND Obstetrics & Gynecology
DX: O47.03 False labor before 37 completed weeks of gestation, third trimester (principal); Z3A.35 35 weeks gestation of pregnancy
CPT/HCPCS: 99213

== ENCOUNTER 2016-08-26 12:15 | Outpatient (CLI) | payer OTHER ==
[~2016-08-26] VITALS: Ht 170.2 cm; Wt 77.6 kg
[2016-08-26 13:00] LABS: BILIRUBIN,URINE NEGATIVE (NEGATIVE); KETONES,URINE NEGATIVE (NEGATIVE); LEUKOCYTE ESTERASE ,URINE NEGATIVE (NEGATIVE); NITRITE,URINE NEGATIVE (NEGATIVE); PH,URINE 6 (5-9); PROTEIN,URINE NEGATIVE (NEGATIVE); UROBILINOGEN,URINE NORMAL (NORMAL)
[2016-08-26 13:10] VITALS: BP 118/72
--- NOTE | 2016-08-29 11:44 | Physician Query-Final Dx ---
VANDANA DIETRICH 08/29/16 1144: Clinic Account Progress/Dx Physician Query: Please give diagnosis Date of Service Aug 26, 2016 at 12:15 MILLIE HAMLIN DO 09/25/16 0641: Clinic Account Progress/Dx DIAGNOSIS: Diagnosis decreased movement third trimester VANDANA DIETRICH Aug 29, 2016 11:44 MILLIE HAMLIN DO Sep 25, 2016 06:41
== END 2016-08-26 13:30 | disposition home or self-care (01) ==
LOC: LDRP 12:15 → WSo 12:15 → UNDOADMOB 12:15 → UNDODISOB 13:30 → WSo 13:30 → EDSTATUS 08-27 14:39
PROVIDERS: ATTEND Obstetrics & Gynecology
DX: O36.8130 Decreased fetal movements, third trimester, not applicable or unspecified (principal)
CPT/HCPCS: 81000; 87088; 99212

== ENCOUNTER 2016-08-30 22:44 | Outpatient (CLI) | payer OTHER ==
[~2016-08-30] VITALS: Ht 170.2 cm; Wt 78.9 kg
[2016-08-30 23:05] LABS: BILIRUBIN,URINE NEGATIVE (NEGATIVE); KETONES,URINE NEGATIVE (NEGATIVE); LEUKOCYTE ESTERASE ,URINE NEGATIVE (NEGATIVE); NITRITE,URINE NEGATIVE (NEGATIVE); PH,URINE 8 (5-9); PROTEIN,URINE NEGATIVE (NEGATIVE); UROBILINOGEN,URINE NORMAL (NORMAL)
[2016-08-31] VITALS: BP 131/59
[2016-08-31] MEDS ORDERED: PROMETHAZINE INJ 25 MG/ML (PHENERGAN) AMP IVP ONE
[2016-08-31] MEDS ORDERED: LACTATED RINGERS 1,000 ML IV ONE
[2016-08-31] MEDS ORDERED: CATHETER FLUSH 10 ML SYR IV PRN (01:45)
--- NOTE | 2016-09-01 13:10 | Physician Query-Final Dx ---
VANDANA DIETRICH 09/01/16 1310: Clinic Account Progress/Dx Physician Query: Please give diagnosis Date of Service Aug 30, 2016 at 22:44 MILLIE HAMLIN DO 09/25/16 0651: Clinic Account Progress/Dx DIAGNOSIS: Diagnosis third trimester, threatened labor VANDANA DIETRICH Sep 01, 2016 13:10 MILLIE HAMLIN DO Sep 25, 2016 06:51
== END 2016-08-31 01:20 ==
LOC: WSo 22:44 → LDRP 22:44 → WSo 08-31 01:20
PROVIDERS: ATTEND Obstetrics & Gynecology
DX: O47.03 False labor before 37 completed weeks of gestation, third trimester (principal); Z3A.36 36 weeks gestation of pregnancy
CPT/HCPCS: 81000; 96361; 96374; 99213

== ENCOUNTER 2016-09-10 02:27 | Outpatient (CLI) | payer OTHER ==
[~2016-09-10] VITALS: Ht 170.2 cm; Wt 81.2 kg
[2016-09-10 02:40] VITALS: BP 132/60
[2016-09-10 05:05] VITALS: BP 130/68
--- NOTE | 2016-09-10 06:37 | Diagnostic Imaging Report ---
INDICATION: Decreased activity. FINDINGS: Single live intrauterine fetus vertex presentation. Amniotic fluid index is normal at 7.5. heart rate of 144 beats per minute. Fetus is active. breathing motion was demonstrated. IMPRESSION: Normal biophysical profile scoring 8 of potential 8 points. These findings are concordant with the preliminary report. Dictated by: Dictated on workstation # [id number]
--- NOTE | 2016-09-10 08:24 | History & Physical-OB ---
OB - Chief Complaint & HPI Date/Time Date of Admission: Date of Admission: 09/10/2016 Time Seen by Provider: 08:15 Chief Complaint/History Hx : 1 Hx Para: 0 Expected Date of Delivery: Sep 27, 2016 Gestational Age in Weeks: 37 Gestational Age in Days: 4 Other reason for admission: Patient presented this morning with suspected SROM. Has not had any further fluid leakage since admission. Admission Nurse Assessment Rev: Yes Allergies and Home Medications Allergies Coded Allergies: Penicillins (Verified Allergy, Mild, 12/07/15) amoxicillin (Verified Allergy, Mild, 12/07/15) cat dander (Verified Allergy, Mild, 12/07/15) erythromycin base (Verified Allergy, Mild, 12/07/15) ibuprofen (Verified Allergy, Mild, 12/07/15) mold (Verified Allergy, Mild, 12/07/15) peanut (Verified Allergy, Mild, 12/07/15) sesame seed (Verified Allergy, Mild, 12/07/15) shrimp (Verified Allergy, Mild, 12/07/15) Uncoded Allergies: MAPLE TREES (Allergy, Mild, 12/07/15) Home Medications Albuterol Sulfate 8.5 Gm Hfa.aer.ad, 1-2 PUFF IH QID, (Reported) Montelukast Sodium 10 Mg Tablet, 10 MG PO DAILY, (Reported) Pediatric Multivitamin Comb#30 1 Each Tab.chew, 1 EACH PO DAILY, (Reported) OB - History Hx of Present Care: Yes Ultrasounds: Normal mid trimester US Abnormal Ultrasound Findings: CIELO 7 cm today, BPP 8/8 Obstetrical Complications: None Medical Complications: None Obstetrical History Hx : 1 Hx Para: 0 Delivery History Hx Blood Disorders: No (BLOOD TYPE O NEGATIVE) Patient Past Medical History n/a Social History/Family History Recent Infectious Disease Expo: No Immunizations Tetanus Booster (TDap): Less than 5yrs Date of Pneumonia Vaccine: Nov 11, 2015 Date of Influenza Vaccine: Nov 10, 2015 OB - Admission Exam Physical Exam Date Seen by Provider: Sep 10, 2016 Time Seen by Provider: 08:20 Vitals: Vital Signs 09/10/16 05:05 Temp 97.0 Pulse 82 Resp 18 B/P (MAP) 130/68 HEENT: NCAT Heart: Rhythm Normal Lungs: Clear Abdomen: Gravid Extremities: Normal Reflexes: Normal Cervical Dilatation: 1cm Effacement: 75% Station: -1 Membranes: Intact (no leakage when checked) Heart Rate: 130's Accelerations: Accelerations Present Decelerations: No Decelerations Short Term Variability: Present Prime Broker Variability: Average (6-25) Contractions on Admission: 6-10 Minutes Apart (patient not feeling contractions ) OB - Assessment/Plan/Diagnosis Assessment Assessment: observation Plan Other Plan Patient to ambulate this AM with pad and if continues to leak will deem ruptured , CIELO WNL but on lower side at 7 cm. Labor precautions reviewed with patient. Discharge Diagnosis Diagnosis: 21 yo @ 37.4 Vaginal discharge- possible SROM GBS neg FABRIZIO NAVAS DO Sep 10, 2016 8:24 am
[2016-09-10 08:25] VITALS: BP 125/68
== END 2016-09-10 09:50 | disposition home or self-care (01) ==
LOC: WSo 02:27 → LDRP 02:28 → WSo 09:50
PROVIDERS: ATTEND Obstetrics & Gynecology
DX: N89.8 Other specified noninflammatory disorders of vagina (principal); Z3A.37 37 weeks gestation of pregnancy
CPT/HCPCS: 76819; 99214

== ENCOUNTER 2016-09-12 12:30 | Outpatient (CLI) | payer OTHER ==
[~2016-09-12] VITALS: Ht 170.2 cm; Wt 81.4 kg
[2016-09-12 12:45] VITALS: BP 120/66
[2016-09-12] MEDS ORDERED: D5 LR IV SOLUTION 1,000 ML IV ONE (13:45)
[2016-09-12 14:45] VITALS: BP 117/68
--- NOTE | 2016-09-12 14:57 | Diagnostic Imaging Report ---
INDICATION: Bilateral calf pain and swelling. COMPARISON: None. TECHNIQUE: The bilateral lower extremity deep venous system was interrogated from the common femoral vein through the popliteal vein. These images were assessed for grayscale appearance, color and spectral Doppler blood flow, compression, and augmentation. FINDINGS: There is no evidence of intraluminal filling defect. Normal compression and augmentation is noted throughout. Soft tissues are unremarkable. IMPRESSION: 1. No sonographic evidence of deep venous thrombosis in the bilateral lower extremities. Dictated by: Dictated on workstation # [id number]
--- NOTE | 2016-09-15 11:23 | Physician Query-Final Dx ---
VANDANA DIETRICH 09/15/16 1123: Clinic Account Progress/Dx Physician Query: Please give diagnosis Date of Service Sep 12, 2016 at 12:30 STACEY ROSALES MD 09/15/16 1227: Clinic Account Progress/Dx DIAGNOSIS: Diagnosis false labor VANDANA DIETRICH Sep 15, 2016 11:23 STACEY ROSALES MD Sep 15, 2016 12:27
== END 2016-09-12 15:30 | disposition home or self-care (01) ==
LOC: WSo 12:30 → LDRP 12:32 → WSo 15:30
PROVIDERS: ATTEND Obstetrics & Gynecology
DX: O47.1 False labor at or after 37 completed weeks of gestation (principal); Z3A.37 37 weeks gestation of pregnancy
CPT/HCPCS: 93970; 96360; 99214

== ENCOUNTER 2016-09-14 20:15 | Outpatient (CLI) | payer OTHER ==
[~2016-09-14] VITALS: Ht 170.2 cm; Wt 82.6 kg
[2016-09-14 20:40] VITALS: BP 125/72
[2016-09-14] MEDS ORDERED: oxyCODONE/APAP 10/325MG (PERCOCET 10) TABLET PO ONE ×2 (21:11→21:30)
--- NOTE | 2016-09-15 11:29 | Physician Query-Final Dx ---
VANDANA DIETRICH 09/15/16 1129: Clinic Account Progress/Dx Physician Query: Please give diagnosis Date of Service Sep 14, 2016 at 20:15 STACEY ROSALES MD 09/15/16 1228: Clinic Account Progress/Dx DIAGNOSIS: Diagnosis false labor VANDANA DIETRICH Sep 15, 2016 11:29 STACEY ROSALES MD Sep 15, 2016 12:28
== END 2016-09-14 22:10 | disposition home or self-care (01) ==
LOC: WSo 20:15 → LDRP 20:15 → ENPENDDIS 21:45 → WSo 22:10
PROVIDERS: ATTEND Obstetrics & Gynecology
DX: O47.1 False labor at or after 37 completed weeks of gestation (principal); Z3A.38 38 weeks gestation of pregnancy
CPT/HCPCS: 99213

== ENCOUNTER 2016-09-18 00:24 | Outpatient (CLI) | payer OTHER ==
[~2016-09-18] VITALS: Ht 170.2 cm; Wt 82.6 kg
[2016-09-18 00:29] VITALS: BP 129/65
[2016-09-18] MEDS ORDERED: DIPH25CA79 PO (00:46)
[2016-09-18 00:49] LABS: BILIRUBIN,URINE NEGATIVE (NEGATIVE); KETONES,URINE NEGATIVE (NEGATIVE); LEUKOCYTE ESTERASE ,URINE NEGATIVE (NEGATIVE); NITRITE,URINE NEGATIVE (NEGATIVE); PH,URINE 7 (5-9); PROTEIN,URINE NEGATIVE (NEGATIVE); UROBILINOGEN,URINE NORMAL (NORMAL)
--- NOTE | 2016-09-19 13:47 | Physician Query-Final Dx ---
KULWINDER BASHIR 09/19/16 1347: Clinic Account Progress/Dx Physician Query: Please give diagnosis Date of Service Sep 18, 2016 at 00:24 STACEY ROSALES MD 09/22/16 0749: Clinic Account Progress/Dx DIAGNOSIS: Diagnosis false labor KULWINDER BASHIR Sep 19, 2016 13:47 STACEY ROSALES MD Sep 22, 2016 07:49
== END 2016-09-18 02:20 | disposition home or self-care (01) ==
LOC: WSo 00:24 → LDRP 00:37 → WSo 02:20
PROVIDERS: ATTEND Obstetrics & Gynecology
DX: O47.1 False labor at or after 37 completed weeks of gestation (principal); Z3A.38 38 weeks gestation of pregnancy
CPT/HCPCS: 81000; 99214

== ENCOUNTER 2016-09-21 04:32 | Inpatient (IN) | payer OTHER ==
[~2016-09-21] VITALS: Ht 170.2 cm; Wt 82.6 kg
[2016-09-21] VITALS (31 sets, daily range): BP systolic 112–163; BP diastolic 57–106
[2016-09-21 05:00] LABS: BILIRUBIN,URINE NEGATIVE (NEGATIVE); KETONES,URINE NEGATIVE (NEGATIVE); LEUKOCYTE ESTERASE ,URINE 1+ (NEGATIVE); NITRITE,URINE NEGATIVE (NEGATIVE); PH,URINE 6 (5-9); PROTEIN,URINE NEGATIVE (NEGATIVE); UROBILINOGEN,URINE NORMAL (NORMAL)
[2016-09-21 05:11] LABS: WBC,URINE RARE /HPF
[2016-09-21] MEDS ORDERED: D5 LR IV SOLUTION 1,000 ML IV ONE (05:49)
[2016-09-21] MEDS ORDERED: fentaNYL INJECTION 100 MCG/2 ML AMP ONE ×2 (05:49→08:44)
[2016-09-21] MEDS ORDERED: CATHETER FLUSH 10 ML SYR IV SCH (06:00)
[2016-09-21] MEDS ORDERED: MINERAL OIL CONCENTRATE 99.9% 15 ML UDC TOP PRN (06:00)
[2016-09-21] MEDS ORDERED: D5 LR IV SOLUTION 1,000 ML IV SCH (06:00)
[2016-09-21] MEDS ORDERED: fentaNYL INJECTION 100 MCG/2 ML AMP IVP ONE (06:15)
[2016-09-21 06:28] LABS: BASOPHILS % (AUTO) 0 % (0-10); EOSINOPHILS # (AUTO) 0.2 10^3/uL (0.0-0.3); EOSINOPHILS % (AUTO) 1 % (0-10); LYMPHOCYTES # (AUTO) 1.5 X 10^3 (1.0-4.0); LYMPHOCYTES % (AUTO) 11 % (12-44); MEAN CORPUSCULAR HEMOGLOBIN 27 PG (25-34); MEAN CORPUSCULAR HGB CONC 34 G/DL (32-36); MEAN CORPUSCULAR VOLUME 80 FL (80-99); MEAN PLATELET VOLUME 10.6 FL (7.4-10.4); MONOCYTES # (AUTO) 0.8 X 10^3 (0.0-1.0); MONOCYTES % (AUTO) 6 % (0-12); NEUTROPHILS # (AUTO) 11.6 X 10^3 (1.8-7.8); NEUTROPHILS % (AUTO) 82 % (42-75); PLATELET COUNT 252 10^3/uL (130-400); RED BLOOD COUNT 4.37 10^6/uL (4.35-5.85); RED CELL DISTRIBUTION WIDTH 12.8 % (10.0-14.5); WHITE BLOOD COUNT 14.1 10^3/uL (4.3-11.0)
[2016-09-21] MEDS ORDERED: SUFENTA 0.6MCG/ML BUPIVA 0.125 100 ML ONE (08:00)
[2016-09-21] MEDS ORDERED: OXYTOCIN/NORMAL SALINE 500 ML IV SCH (08:03)
--- NOTE | 2016-09-21 08:18 | History & Physical-OB ---
OB - Chief Complaint & HPI Date/Time Date of Admission: Date of Admission: Sep 21, 2016 at 5:51 am Time Seen by Provider: 08:00 Chief Complaint/History OB-Reason for Admission/Chief: Onset of Labor Hx : 1 Hx Para: 0 Expected Date of Delivery: Sep 27, 2016 Gestational Age in Weeks: 39 Admission Nurse Assessment Rev: Yes History of Labs Laboratory Tests Test 09/21/16 04:40 09/21/16 06:10 Range/Units Urine Color YELLOW Urine Clarity CLEAR Urine pH 6 5-9 Urine Specific Fisher 1.020 1.016-1.022 Urine Protein NEGATIVE NEGATIVE Urine Glucose (UA) NEGATIVE NEGATIVE Urine Ketones NEGATIVE NEGATIVE Urine Nitrite NEGATIVE NEGATIVE Urine Bilirubin NEGATIVE NEGATIVE Urine Urobilinogen NORMAL NORMAL MG/DL Urine Leukocyte Esterase 1+ H NEGATIVE Urine RBC (Auto) NEGATIVE NEGATIVE Urine RBC NONE /HPF Urine WBC RARE /HPF Urine Squamous Epithelial Cells 5-10 /HPF Urine Crystals NONE /LPF Urine Bacteria TRACE /HPF Urine Casts NONE /LPF Urine Mucus NEGATIVE /LPF Urine Culture Indicated YES White Blood Count 14.1 H 4.3-11.0 10^3/uL Red Blood Count 4.37 4.35-5.85 10^6/uL Hemoglobin 11.8 11.5-16.0 G/DL Hematocrit 35 35-52 % Mean Corpuscular Volume 80 80-99 FL Mean Corpuscular Hemoglobin 27 25-34 PG Mean Corpuscular Hemoglobin Concent 34 32-36 G/DL Red Cell Distribution Width 12.8 10.0-14.5 % Platelet Count 252 130-400 10^3/uL Mean Platelet Volume 10.6 H 7.4-10.4 FL Neutrophils (%) (Auto) 82 H 42-75 % Lymphocytes (%) (Auto) 11 L 12-44 % Monocytes (%) (Auto) 6 0-12 % Eosinophils (%) (Auto) 1 0-10 % Basophils (%) (Auto) 0 0-10 % Neutrophils # (Auto) 11.6 H 1.8-7.8 X 10^3 Lymphocytes # (Auto) 1.5 1.0-4.0 X 10^3 Monocytes # (Auto) 0.8 0.0-1.0 X 10^3 Eosinophils # (Auto) 0.2 0.0-0.3 10^3/uL Basophils # (Auto) 0.0 0.0-0.1 10^3/uL Other O neg Antibody neg RNI HBsAg NR HCsAg NR HIV NR GC neg GBS neg Allergies and Home Medications Allergies Coded Allergies: Penicillins (Verified Allergy, Mild, 12/07/15) amoxicillin (Verified Allergy, Mild, 12/07/15) cat dander (Verified Allergy, Mild, 12/07/15) erythromycin base (Verified Allergy, Mild, 12/07/15) ibuprofen (Verified Allergy, Mild, 12/07/15) mold (Verified Allergy, Mild, 12/07/15) peanut (Verified Allergy, Mild, 12/07/15) sesame seed (Verified Allergy, Mild, 12/07/15) shrimp (Verified Allergy, Mild, 12/07/15) Uncoded Allergies: MAPLE TREES (Allergy, Mild, 12/07/15) Home Medications Albuterol Sulfate 8.5 Gm Hfa.aer.ad, 1-2 PUFF IH QID, (Reported) Diphenhydramine HCl 25 Mg Capsule, 25 MG PO PRN, (Reported) Montelukast Sodium 10 Mg Tablet, 10 MG PO DAILY, (Reported) Pediatric Multivitamin Comb#30 1 Each Tab.chew, 1 EACH PO DAILY, (Reported) OB - History Hx of Present Care: Yes Ultrasounds: Normal mid trimester US Obstetrical Complications: None Medical Complications: None Obstetrical History Hx : 1 Hx Para: 0 Hx Total # of Abortions (Spona: 0 Delivery History Hx Blood Disorders: No (BLOOD TYPE O NEGATIVE) Adverse Rxn to Tranfusion: No Patient Past Medical History n/a Social History/Family History Recent Infectious Disease Expo: No Alcohol Use: Denies Use Recreational Drug Use: No Immunizations Hepatitis A: Yes Hepatitis B: Yes Tetanus Booster (TDap): Less than 5yrs Date of Pneumonia Vaccine: Nov 11, 2015 Date of Influenza Vaccine: Nov 10, 2015 OB - Admission Exam Physical Exam Date Seen by Provider: Sep 21, 2016 Time Seen by Provider: 08:00 Vitals: Vital Signs 09/21/16 09/21/16 05:00 07:00 Temp 98.2 Pulse 77 Resp 18 B/P (MAP) 129/74 HEENT: NCAT Heart: Rhythm Normal Lungs: Clear Abdomen: Gravid Extremities: Normal Reflexes: Normal Cervical Dilatation: 4cm Effacement: 100% Membranes: Intact Amniotic Fluid: Clear Heart Rate: 130's Accelerations: Accelerations Present Decelerations: No Decelerations Short Term Variability: Present Intermediate Variability: Average (6-25) Contractions on Admission: 6-10 Minutes Apart Intensity: Mild Labs Laboratory Tests Test 09/21/16 04:40 09/21/16 06:10 Range/Units Urine Color YELLOW Urine Clarity CLEAR Urine pH 6 5-9 Urine Specific Fisher 1.020 1.016-1.022 Urine Protein NEGATIVE NEGATIVE Urine Glucose (UA) NEGATIVE NEGATIVE Urine Ketones NEGATIVE NEGATIVE Urine Nitrite NEGATIVE NEGATIVE Urine Bilirubin NEGATIVE NEGATIVE Urine Urobilinogen NORMAL NORMAL MG/DL Urine Leukocyte Esterase 1+ H NEGATIVE Urine RBC (Auto) NEGATIVE NEGATIVE Urine RBC NONE /HPF Urine WBC RARE /HPF Urine Squamous Epithelial Cells 5-10 /HPF Urine Crystals NONE /LPF Urine Bacteria TRACE /HPF Urine Casts NONE /LPF Urine Mucus NEGATIVE /LPF Urine Culture Indicated YES White Blood Count 14.1 H 4.3-11.0 10^3/uL Red Blood Count 4.37 4.35-5.85 10^6/uL Hemoglobin 11.8 11.5-16.0 G/DL Hematocrit 35 35-52 % Mean Corpuscular Volume 80 80-99 FL Mean Corpuscular Hemoglobin 27 25-34 PG Mean Corpuscular Hemoglobin Concent 34 32-36 G/DL Red Cell Distribution Width 12.8 10.0-14.5 % Platelet Count 252 130-400 10^3/uL Mean Platelet Volume 10.6 H 7.4-10.4 FL Neutrophils (%) (Auto) 82 H 42-75 % Lymphocytes (%) (Auto) 11 L 12-44 % Monocytes (%) (Auto) 6 0-12 % Eosinophils (%) (Auto) 1 0-10 % Basophils (%) (Auto) 0 0-10 % Neutrophils # (Auto) 11.6 H 1.8-7.8 X 10^3 Lymphocytes # (Auto) 1.5 1.0-4.0 X 10^3 Monocytes # (Auto) 0.8 0.0-1.0 X 10^3 Eosinophils # (Auto) 0.2 0.0-0.3 10^3/uL Basophils # (Auto) 0.0 0.0-0.1 10^3/uL OB - Assessment/Plan/Diagnosis Assessment Assessment: active labor Plan Induction Method: AROM Other Plan AROM and Pitocin augmentation Discharge Diagnosis Diagnosis: 21 yo @ 39 weeks Active labor GBS neg FABRIZIO NAVAS DO Sep 21, 2016 8:18 am
[2016-09-21] MEDS ORDERED: LIDOCAINE PF 2% 5 ML (XYLOCAINE) VIAL ONE (08:44)
[2016-09-21] MEDS ORDERED: BUPIVACAINE 0.25% 30 ML (SENSORCAINE) VIAL ONE (08:44)
[2016-09-21] MEDS ORDERED: LACTATED RINGERS 1,000 ML IV ONE ×2 (09:13)
[2016-09-21] MEDS ORDERED: ONDANSETRON 4 MG/2 ML (SDV) Z0FRAN IV PRN (09:15)
[2016-09-21] MEDS ORDERED: EPIDURAL (SUFENTA 0.6MCG/ML BUPIVA 0.125%) 100 ML BAG EPI PRN (09:15)
[2016-09-21] MEDS ORDERED: NALOXONE 0.4 MG/ML 1 ML (NARCAN) VIAL IV PRN (09:15)
[2016-09-21] MEDS ORDERED: LIDOCAINE/EPI 1%-1:200,000 (XYLOCAINE) 30 ML VIAL ONE (11:13)
[2016-09-21] MEDS ORDERED: BENZOCAINE/MENTHOL (DERMOPLAST) 56 ML CAN TP PRN (12:00)
[2016-09-21] MEDS ORDERED: TETANUS,DIPTH,PERTUSS P/F (BOOSTRIX) 0.5 ML VIAL IM ONE (12:00)
[2016-09-21] MEDS ORDERED: MEASLES,MUMPS,RUBELLA 1 EA INJ SQ ONE (12:00)
[2016-09-21] MEDS ORDERED: DIBUCAINE (NUPERCAINAL) 1% OINT 30 GM TOP PRN (12:00)
[2016-09-21] MEDS ORDERED: WITCH HAZEL(TUCKS) 40 EA JAR TOP PRN (12:00)
--- NOTE | 2016-09-21 12:05 | OB Labor & Delivery Record ---
L&D History Date of Service Date of Service: Sep 21, 2016 History Expected Date of Delivery: Sep 27, 2016 Gestational Age in Weeks: 39 Hx : 1 Hx Para: 0 Complications Events: Routine care Operative Indications (Cesarea: N/A-Vaginal Delivery Other Complications Nuchal cord and bradycardia necessitating vacuum-assisted delivery L&D Stage1 Stage One Onset of Labor - Date: Sep 21, 2016 Monitors and Tracing Monitor Mode: External Heart Rate: 125 Station: -2 Short Term Variability: Present Presentation: Vertex Vital Signs VS - Last 72 Hours, by Label 09/21/16 09/21/16 09/21/16 09/21/16 05:00 07:00 07:30 08:00 Temp 98.2 96.8 Pulse 77 76 75 Resp 18 18 18 B/P (MAP) 129/74 116/71 124/76 O2 Delivery Room Air Room Air 09/21/16 09/21/16 09/21/16 09/21/16 08:15 08:30 08:45 09:00 Pulse 68 65 76 82 Resp 18 18 18 18 B/P (MAP) 113/65 131/76 129/76 145/75 Pulse Ox 99 O2 Delivery Room Air Room Air Room Air Room Air 09/21/16 09/21/16 09/21/16 09/21/16 09:05 09:10 09:15 09:20 Temp 97.3 Pulse 96 77 69 80 Resp 18 18 18 18 B/P (MAP) 142/71 123/61 131/57 119/58 Pulse Ox 100 98 98 98 O2 Delivery Room Air Room Air Room Air Room Air 09/21/16 09/21/16 09/21/16 09/21/16 09:25 09:30 09:35 09:40 Pulse 72 71 68 72 Resp 18 18 18 18 B/P (MAP) 125/65 126/64 123/63 139/69 Pulse Ox 97 98 98 99 O2 Delivery Room Air Room Air Room Air Room Air 09/21/16 09/21/16 09/21/16 09/21/16 09:45 10:00 10:15 10:30 Temp 97.8 Pulse 82 80 78 68 Resp 18 18 18 18 B/P (MAP) 129/74 121/73 117/76 118/83 Pulse Ox 99 99 100 98 O2 Delivery Room Air Room Air Room Air Room Air 09/21/16 10:45 Pulse 76 Resp 18 B/P (MAP) 112/76 Pulse Ox 99 O2 Delivery Room Air Rupture of Membranes Amniotic Membrane Rupture Time: 0800 Vaginal Bleeding Description: Normal Show Induction/Anesthesia Epidural Cath Placement - Time: 0858 Progress/Notes Pitocin augmentation was started and the patient progressed to complete and +1 station. She required an epidural for pain management which was obtained at approximately 4-5 cm dilatation. L&D Stage2 Stage Two Stage II Date: Sep 21, 2016 Monitors and Tracing Monitor Mode: External Heart Rate: 125 Monitor Decelerations: Prolonged Short Term Variability: Present Position: Right Occiput Anterior Presentation: Vertex Signs of Distress by FHT Signs of Distress Recurrent and deepening episodes of bradycardia with good maternal pushing was noted the patient progressed the 's vertex to +2 to +3 station at which point due to an episode of bradycardia down in the 60s I applied a Kiwi vacuum extractor done in the mid sagittal suture line of the vertex. 50 mmHg of pressure are applied and with gentle downward pressure the infant's head is delivered through extension. A right mediolateral episiotomy was performed prior to delivery of the head. After which a vacuum was released. Cord Descript/Complications Cord Vessel Description: 3 Vessels Complications Nuchal cord 1 Delivery Type Delivery Method: Low Vacuum Extraction Anterior Shoulder: Right Episiotomy/Perineal Laceration Episiotomy Description: Right Mediolateral Location Modifier: Right Degree (describe repair) Right mediolateral episiotomy was repaired using 30 in 2-0 Vicryl suture in the normal fashion Condition of Infant Delivery 1 minute Comment: 9 5 minute Comment: 9 Notes Live female weighing 7 lbs. 3 oz. Apgars of 9 and 9 Condition of Condition of Infant: Living Exam: No Observed Abnormalities Resuscitation Resuscitation: N/A - Spontaneous Resp L&D Stage3 Pictocin Pitocin Administration mu/min: 6 Pitocin ml/hr: 6 Pitocin Administration Comment: 30 milliunits wide open Placenta Delivery Placenta Delivery: Spontaneous Delivery Summary Summary blood loss >1000ml: No Vaginal blood loss >500ml: No 300 Attending at delivery: Fabrizio Navas DO Condition of Delivery Examined: Cervix Examined, Uterus Explored Post Hemorrhage: No Condition of Mother Stable Condition of (s) Stable FABRIZIO NAVAS DO Sep 21, 2016 12:05
[2016-09-21] MEDS: OXYTOCIN/NORMAL SALINE 500 ML IV SCH ×2 (12:23→12:41)
[2016-09-21] MEDS: APAP 300 MG/CODEINE 30 MG (TYLENOL #3) TAB PO PRN (16:46)
[2016-09-21] MEDS: DOCUSATE SODIUM 100 MG (COLACE) CAP PO SCH (20:11)
[2016-09-21] MEDS: NAPROXEN 250 MG (NAPROSYN) TABLET PO SCH (20:11)
[2016-09-22 03:35] VITALS: BP 117/63
[2016-09-22 06:51] LABS: BASOPHILS % (AUTO) 0 % (0-10); EOSINOPHILS # (AUTO) 0.1 10^3/uL (0.0-0.3); EOSINOPHILS % (AUTO) 1 % (0-10); LYMPHOCYTES # (AUTO) 1.8 X 10^3 (1.0-4.0); LYMPHOCYTES % (AUTO) 13 % (12-44); MEAN CORPUSCULAR HEMOGLOBIN 27 PG (25-34); MEAN CORPUSCULAR HGB CONC 33 G/DL (32-36); MEAN CORPUSCULAR VOLUME 82 FL (80-99); MEAN PLATELET VOLUME 10.7 FL (7.4-10.4); MONOCYTES # (AUTO) 0.7 X 10^3 (0.0-1.0); MONOCYTES % (AUTO) 5 % (0-12); NEUTROPHILS # (AUTO) 10.7 X 10^3 (1.8-7.8); NEUTROPHILS % (AUTO) 80 % (42-75); PLATELET COUNT 195 10^3/uL (130-400); RED BLOOD COUNT 3.64 10^6/uL (4.35-5.85); RED CELL DISTRIBUTION WIDTH 12.8 % (10.0-14.5); WHITE BLOOD COUNT 13.3 10^3/uL (4.3-11.0)
[2016-09-22 07:50] VITALS: BP 125/58
[2016-09-22] MEDS: FERROUS SULF 325 MG (IRON) TAB PO SCH (09:15)
[2016-09-22] MEDS: DOCUSATE SODIUM 100 MG (COLACE) CAP PO SCH ×2 (09:15→21:05)
[2016-09-22] MEDS: NAPROXEN 250 MG (NAPROSYN) TABLET PO SCH ×2 (09:15→21:06)
[2016-09-22] MEDS: PRENATAL VITAMIN 1 EA TAB PO SCH (09:15)
[2016-09-22] MEDS ORDERED: ACET1TAB43 PO (11:58)
[2016-09-22] MEDS ORDERED: NAPR250T2 PO (11:58)
[2016-09-22] MEDS ORDERED: DOCU100C37 PO (11:58)
[2016-09-22] MEDS ORDERED: FERR-74 PO (11:58)
--- NOTE | 2016-09-22 11:58 | Discharge Inst-Women's Service ---
Discharge Inst-Women's Serv Depart Medication/Instructions New, Converted or Re-Newed RX: RX Given to Pt/Family Consults/Follow Up Additional Follow Up: Yes Orders/Referrals Dr. Navas in 6 weeks Activity Activity: Activity as Tolerated Driving Instructions: No Driving for 1 Week Nothing Inside Vagina: No Douching, No [place], No Tampons Diet Discharge Diet: No Restrictions Symptoms to Report to : Bleeding Excessive, Pain Increased, Fever Over 101 Degrees F, Vaginal Bleeding Increase, Questions/Concerns For Any Problems or Questions: Contact Your Physician Skin/Wound Care Infection Signs and Symptoms: Increased Redness Bathing Instructions: Shower (x 2 weeks) FABRIZIO NAVAS DO Sep 22, 2016 11:58 am
--- NOTE | 2016-09-22 12:00 | Progress Note-Standard ---
Standard Progress Note Progress Notes/Assess & Plan Date Seen by Provider: Sep 22, 2016 Time Seen by Provider: 11:00 Progress/Assessment & Plan Patient doing very well PP day 1 VAVD. Reports good pain control. Ambulating and voiding freely. Lochia Light Vital Sign - Last 24 Hours 09/21/16 09/21/16 09/21/16 09/21/16 12:14 12:29 12:45 16:47 Temp 99.7 Pulse 88 103 81 97 Resp 18 B/P (MAP) 130/81 137/106 121/70 123/76 Pulse Ox 98 O2 Delivery Room Air 09/21/16 09/21/16 09/22/16 09/22/16 20:11 23:55 03:35 07:50 Temp 98.8 98.0 98.3 98.5 Pulse 100 98 75 77 Resp 18 B/P (MAP) 134/82 145/86 117/63 125/58 Pulse Ox 98 97 98 97 O2 Delivery Room Air Room Air Room Air Room Air Intake and Output 09/21/16 09/21/16 09/22/16 15:00 23:00 07:00 Intake Total 2000 ml Balance 2000 ml Uterine fundus firm and below umbilicus Laboratory Tests Test 09/22/16 06:40 Range/Units White Blood Count 13.3 H 4.3-11.0 10^3/uL Red Blood Count 3.64 L 4.35-5.85 10^6/uL Hemoglobin 9.8 L 11.5-16.0 G/DL Hematocrit 30 L 35-52 % Mean Corpuscular Volume 82 80-99 FL Mean Corpuscular Hemoglobin 27 25-34 PG Mean Corpuscular Hemoglobin Concent 33 32-36 G/DL Red Cell Distribution Width 12.8 10.0-14.5 % Platelet Count 195 130-400 10^3/uL Mean Platelet Volume 10.7 H 7.4-10.4 FL Neutrophils (%) (Auto) 80 H 42-75 % Lymphocytes (%) (Auto) 13 12-44 % Monocytes (%) (Auto) 5 0-12 % Eosinophils (%) (Auto) 1 0-10 % Basophils (%) (Auto) 0 0-10 % Neutrophils # (Auto) 10.7 H 1.8-7.8 X 10^3 Lymphocytes # (Auto) 1.8 1.0-4.0 X 10^3 Monocytes # (Auto) 0.7 0.0-1.0 X 10^3 Eosinophils # (Auto) 0.1 0.0-0.3 10^3/uL Basophils # (Auto) 0.0 0.0-0.1 10^3/uL Diagnosis: PPD 1 NVD Acute blood loss anemia on anemia of P: Replace iron DC later today pending release. FABRIZIO NAVAS DO Sep 22, 2016 12:00 pm
[2016-09-22 12:57] VITALS: BP 105/69
[2016-09-22] MEDS: CATHETER FLUSH 10 ML SYR IV SCH ×2 (12:59→22:00)
[2016-09-22 17:00] VITALS: BP 117/77
[2016-09-22 20:00] VITALS: BP 126/68
[2016-09-23 02:05] VITALS: BP 124/68
[2016-09-23] MEDS: APAP 300 MG/CODEINE 30 MG (TYLENOL #3) TAB PO PRN (07:48)
[2016-09-23] MEDS: PRENATAL VITAMIN 1 EA TAB PO SCH (07:49)
[2016-09-23] MEDS: NAPROXEN 250 MG (NAPROSYN) TABLET PO SCH (07:49)
[2016-09-23] MEDS: DOCUSATE SODIUM 100 MG (COLACE) CAP PO SCH (07:49)
[2016-09-23] MEDS: FERROUS SULF 325 MG (IRON) TAB PO SCH (07:49)
[2016-09-23 07:50] VITALS: BP 105/62
--- NOTE | 2016-09-23 09:00 | Progress Note-Standard ---
Standard Progress Note Progress Notes/Assess & Plan Date Seen by Provider: Sep 23, 2016 Time Seen by Provider: 08:30 Progress/Assessment & Plan Patient doing very well PP day 2 VAVD. Reports good pain control. Ambulating and voiding freely. Lochia Light Vital Sign - Last 24 Hours 09/22/16 09/22/16 09/22/16 09/23/16 12:57 17:00 20:00 02:05 Temp 97.7 98.4 96.8 98.8 Pulse 74 83 90 74 Resp 16 16 17 18 B/P (MAP) 105/69 117/77 126/68 124/68 Pulse Ox 98 96 97 98 O2 Delivery Room Air Room Air Room Air Room Air 09/23/16 07:50 Temp 98.2 Pulse 65 Resp 20 B/P (MAP) 105/62 Pulse Ox 98 O2 Delivery Room Air Diagnosis: PPD 2 VAVD Acute blood loss anemia on anemia of P: Replace iron DC later today. FABRIZIO NAVAS DO Sep 23, 2016 9:00 am
[2016-09-23 13:05] VITALS: BP 105/62
== END 2016-09-23 13:05 | disposition home or self-care (01) | DRG 775 ==
LOC: LDRP 04:32 → WSo 04:32 → LDRP 05:51 → WSo 05:51 → LDRP 13:06
PROVIDERS: ADMIT Obstetrics & Gynecology; ATTEND Obstetrics & Gynecology
PROC: 10D07Z6 Extraction of Products of Conception, Vacuum, Via Natural or Artificial Opening (ICD-10-PCS; principal; 2016-09-21)
PROC: 0W8NXZZ Division of Female Perineum, External Approach (ICD-10-PCS; 2016-09-21)
DX: O69.81X0 Labor and delivery complicated by cord around neck, without compression, not applicable or unspecified (principal); O76 Abnormality in fetal heart rate and rhythm complicating labor and delivery; O90.81 Anemia of the puerperium; O99.02 Anemia complicating childbirth; D62 Acute posthemorrhagic anemia; Z3A.39 39 weeks gestation of pregnancy; Z37.0 Single live birth
CPT/HCPCS: 36415; 81000; 83033; 85025; 86850; 86900; 86901; 87088; 99212

== ENCOUNTER 2017-01-06 10:12 | Emergency (ER) | payer OTHER ==
[~2017-01-06] VITALS: Ht 170.2 cm; Wt 77.1 kg
[~2017-01-06 10:12] MED LIST changes: +ACET1TAB43 PO; +DOCU100C37 PO; +FERR-74 PO; +NAPR250T6 PO
[2017-01-06] MEDS ORDERED: PRD20T PO (10:41)
[2017-01-06] MEDS ORDERED: CEFU500T63 PO (10:41)
--- NOTE | 2017-01-06 10:42 | ED Cough/URI ---
General Stated Complaint: COUGH,CONGESTION,WHEEZING Source: patient Exam Limitations: no limitations History of Present Illness Time seen by provider: 10:37 Initial Comments To ER with a productive cough, congestion and wheezing for 2 months. She's been seen at [facility] for this but denies being given any prescriptions. She has a history of asthma. She did have testing for influenza which was negative. Timing/Duration: constant Severity/Quality: productive cough Associated Symptoms: cough, wheezing Allergies and Home Medications Allergies Coded Allergies: Penicillins (Verified Allergy, Mild, 12/07/15) amoxicillin (Verified Allergy, Mild, 12/07/15) cat dander (Verified Allergy, Mild, 12/07/15) erythromycin base (Verified Allergy, Mild, 12/07/15) ibuprofen (Verified Allergy, Mild, 12/07/15) mold (Verified Allergy, Mild, 12/07/15) peanut (Verified Allergy, Mild, 12/07/15) sesame seed (Verified Allergy, Mild, 12/07/15) shrimp (Verified Allergy, Mild, 12/07/15) Uncoded Allergies: MAPLE TREES (Allergy, Mild, 12/07/15) Home Medications Acetaminophen with Codeine 1 Each Tablet, 1-2 TAB PO Q4H PRN for PAIN-MODERATE, #50 Prescribed by: FABRIZIO NAVAS on 09/22/16 1158 Albuterol Sulfate 8.5 Gm Hfa.aer.ad, 1-2 PUFF IH QID, (Reported) Diphenhydramine HCl 25 Mg Capsule, 25 MG PO PRN, (Reported) Docusate Sodium 100 Mg Capsule, 100 MG PO BID PRN for CONSTIPATION-1ST LINE, #40 Prescribed by: FABRIZIO NAVAS on 09/22/16 1158 Ferrous Sulfate 325 Mg Tablet, 325 MG PO DAILY, #60 Prescribed by: FABRIZIO NAVAS on 09/22/16 1158 Montelukast Sodium 10 Mg Tablet, 10 MG PO DAILY, (Reported) Naproxen 250 Mg Tablet, 500 MG PO BID, #60 Prescribed by: FABRIZIO NAVAS on 09/22/16 1158 Pediatric Multivitamin Comb#30 1 Each Tab.chew, 1 EACH PO DAILY, (Reported) Constitutional: see HPI EENTM: see HPI Respiratory: see HPI, cough, wheezing Cardiovascular: no symptoms reported Genitourinary: no symptoms reported Musculoskeletal: no symptoms reported Skin: no symptoms reported Psychiatric/Neurological: No Symptoms Reported Past [id number]-[id number] Hx Patient Social History Type Used: Cigarettes Former Smoker, Quit: Jan 10, 2016 Recent Foreign Travel: No Contact w/Someone Who Travel: No Recent Hopitalizations: No Immunizations Up To Date Tetanus Booster (TDap): Less than 5yrs PED Vaccines UTD: Yes Date of Pneumonia Vaccine: Nov 11, 2015 Date of Influenza Vaccine: Nov 10, 2015 Seasonal Allergies Seasonal Allergies: No Surgeries History of Surgeries: Yes (DX LAPAROSCOPY FOR ENDOMETRIOSIS) Surgeries: Appendectomy, Tonsillectomy Respiratory History of Respiratory Disorde: Yes (USES INHALER PRN) Respiratory Disorders: Asthma Cardiovascular History of Cardiac Disorders: No Neurological History of Neurological Disord: No Reproductive System Hx Reproductive Disorders: Yes Female Reproductive Disorders: Endometriosis, Ovarian Cyst Genitourinary History of Genitourinary Disor: Yes Genitourinary Disorders: Bladder Infection Gastrointestinal History of Gastrointestinal Di: No Musculoskeletal History of Musculoskeletal Dis: No Endocrine History of Endocrine Disorders: No HEENT History of HEENT Disorders: No Cancer History of Cancer: No Psychosocial History of Psychiatric Problem: Yes Behavioral Health Disorders: Anxiety, Bipolar, Depression Integumentary History of Skin or Integumenta: Yes Skin/Integumentary Disorders: Eczema Blood Transfusions History of Blood Disorders: No Adverse Reaction to a Blood Tr: No Family Medical History Family Medial History: Headache disorder 19 MOTHER Hypertension 19 MOTHER Thyroid disease 19 MOTHER Physical Exam Vital Signs Capillary Refill : General Appearance: WD/WN, no apparent distress Eyes: Bilateral Eye Normal Inspection, Bilateral Eye PERRL, Bilateral Eye EOMI HEENT: PERRL/EOMI, normal ENT inspection Neck: non-tender, full range of motion Respiratory: no respiratory distress, no accessory muscle use, No decreased breath sounds, No accessory muscle use, rhonchi, wheezing Cardiovascular: regular rate, rhythm, no murmur Gastrointestinal: normal bowel sounds, non tender, soft Extremities: normal range of motion, non-tender Neurologic/Psychiatric: alert, normal mood/affect, oriented x 3 Skin: normal color, warm/dry Progress/Results/Core Measures Suspected Sepsis SIRS Temperature: Pulse: Respiratory Rate: Blood Pressure / Mean: Results/Orders My Orders Orders - BOB CONTRERAS APRN Chest Pa/Lat (2 View) (01/06/17 10:36) Prednisone Tablet (Deltasone Tablet) (01/06/17 10:45) Albuterol/Ipra Inhalation Soln (Duoneb I (01/06/17 10:45) Svn Sm Volume Nebulizer Rt-Rfs (01/06/17 10:36) Vital Signs/I&O Capillary Refill : Departure Impression Impression: Primary Impression: Acute bronchitis Additional Impression: Asthma exacerbation Disposition: HOME, SELF-CARE Condition: Stable Departure-Patient Inst. Decision time for Depature: 10:39 Referrals: KENY WILSON APRN (PCP/Family) Primary Care Physician Patient Instructions: Acute Bronchitis, Adult (DC), Asthma in Adults Add. Discharge Instructions: 1. Return to ER for any worsening 2. Follow-up with her regular doctor later this week 3. All discharge instructions reviewed with patient and/or family. Voiced understanding. Scripts Cefuroxime Axetil (Cefuroxime) 500 Mg Tablet 500 MG PO BID, #14 TAB Prov: BOB CONTRERAS APRN 01/06/17 Prednisone (Prednisone) 20 Mg Tab 40 MG PO DAILY for 4 Days, #8 TAB Start on 01/07/17 Prov: BOB CONTRERAS APRN 01/06/17 BOB CONTRERAS APRN Jan 06, 2017 10:41
[2017-01-06] MEDS ORDERED: predniSONE 10 MG TAB PO ONE (10:45)
[2017-01-06] MEDS ORDERED: RT-ALBUTEROL/IPRATROPIUM 3 ML (DUONEB) VIAL INH ONE (10:45)
[2017-01-06 11:04] VITALS: BP 122/65
--- NOTE | 2017-01-06 11:07 | Diagnostic Imaging Report ---
PA and lateral views of the chest Indication: Cough and wheezing Findings: The lungs are clear. The heart size is normal. There is no effusion or pneumothorax The mediastinum and abhishek appear unremarkable. Impression: Unremarkable study. Dictated by: Dictated on workstation # [id number]
== END 2017-01-06 11:04 | disposition home or self-care (01) ==
LOC: EDUNIT# 10:12 → ER 10:14
DX: J20.9 Acute bronchitis, unspecified (principal); J45.901 Unspecified asthma with (acute) exacerbation; F41.9 Anxiety disorder, unspecified; F32.9 Major depressive disorder, single episode, unspecified; Z87.448 Personal history of other diseases of urinary system; Z87.891 Personal history of nicotine dependence; Z90.49 Acquired absence of other specified parts of digestive tract; Z90.89 Acquired absence of other organs
CPT/HCPCS: 71020; 94640; 94664; 99283

== ENCOUNTER 2017-03-29 16:22 | Emergency (ER) | payer OTHER ==
[~2017-03-29] VITALS: Ht 170.2 cm; Wt 77.1 kg
[~2017-03-29 16:22] MED LIST changes: +CEFU500T63 PO; -FERR-74 PO; +FERR325T18 PO; +PRD20T PO
--- NOTE | 2017-03-29 18:24 | ED Headache ---
General Chief Complaint: General Problems/Pain Stated Complaint: DIZZY,CP Nursing Triage Note: AMB TO ROOM IS APX 14 WEEKS AND 6 DAYS PREG. FOR 3 WEEKS HAS HAD HEADACHE AND DIZZY. WAS TOLD BY HER DR DUE TO NOT HAVING CAFFEINE. TODAY REPORTS SHE ALMOST PASSED OUT AND HAD HAD PAIN IN EPIGASTRIC AREA. ACROSS CHEST. Nursing Sepsis Screen: No Definite Risk Source: patient, other (Boyfriend) Exam Limitations: no limitations History of Present Illness Date Seen by Provider: Mar 29, 2017 Time Seen by Provider: 18:00 Initial Comments Patient presents to the ER by private conveyance with a chief complaint of headaches for the past 3 days. She's had a sore throat for the past 2 days. She was seen 3 days ago at the ER in the [place], [place] and was told that they thought it was likely viral and related to her asthma. She was given a breathing treatment which she said made her breathing much better. She was also having at that time some chest pain substernal in the midline that was improved on breathing treatment and worsened by deep inspiration. She is still having the same chest pain but denies any shortness of breath. She has not used her own albuterol since 2 days ago because she does not feel she is short of breath or having any wheezing area and she has no cough, fevers, chills, nausea, vomiting, diarrhea or abdominal pain. 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 She has no history of preeclampsia but she says with her last procedure she did have quite a bit of swelling and some protein in her urine but no high blood pressure. She does not have a history of migraine headaches. She is not having any neurologic symptoms other than she says when her headaches get their worst she gets a little blurry vision. She also says she gets dizzy like she could fall over after sitting down or lying down for a prolonged amount of time upon standing. 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 She denies any other medical history such as diabetes. She denies any heartburn or acid reflux although she's had it in the past with her pregnancies usually in the third trimester. Allergies and Home Medications Allergies Coded Allergies: Penicillins (Verified Allergy, Mild, 12/07/15) amoxicillin (Verified Allergy, Mild, 12/07/15) cat dander (Verified Allergy, Mild, 12/07/15) erythromycin base (Verified Allergy, Mild, 12/07/15) ibuprofen (Verified Allergy, Mild, 12/07/15) mold (Verified Allergy, Mild, 12/07/15) peanut (Verified Allergy, Mild, 12/07/15) sesame seed (Verified Allergy, Mild, 12/07/15) shrimp (Verified Allergy, Mild, 12/07/15) Uncoded Allergies: MAPLE TREES (Allergy, Mild, 12/07/15) Home Medications Acetaminophen with Codeine 1 Each Tablet, 1-2 TAB PO Q4H PRN for PAIN-MODERATE, #50 Prescribed by: FABRIZIO NAVAS on 09/22/16 1158 Albuterol Sulfate 8.5 Gm Hfa.aer.ad, 1-2 PUFF IH QID, (Reported) Cefuroxime Axetil 500 Mg Tablet, 500 MG PO BID, #14 Prescribed by: BOB CONTRERAS on 01/06/17 1041 Diphenhydramine HCl 25 Mg Capsule, 25 MG PO PRN, (Reported) Docusate Sodium 100 Mg Capsule, 100 MG PO BID PRN for CONSTIPATION-1ST LINE, #40 Prescribed by: FABRIZIO NAVAS on 09/22/16 1158 Ferrous Sulfate 325 Mg Tablet, 325 MG PO DAILY, #60 Prescribed by: FABRIZIO NAVAS on 09/22/16 1158 Montelukast Sodium 10 Mg Tablet, 10 MG PO DAILY, (Reported) Naproxen 250 Mg Tablet, 500 MG PO BID, #60 Prescribed by: FABRIZIO NAVAS on 09/22/16 1158 Pediatric Multivitamin Comb#30 1 Each Tab.chew, 1 EACH PO DAILY, (Reported) Prednisone 20 Mg Tab, 40 MG PO DAILY for 4 Days, #8 Start on 01/07/17 Prescribed by: BOB CONTRERAS on 01/06/17 1041 Constitutional: No chills, No diaphoresis Eyes: Denies Blindness, Blurred Vision, Denies Drainage, Denies Inflammation, Denies Pain Ears, Nose, Mouth, Throat: denies ear pain, denies ear discharge Respiratory: No cough, No hemoptysis, No short of breath, No wheezing Cardiovascular: see HPI, chest pain, No Hx of Intervention, No syncope Gastrointestinal: No abdominal pain, No constipation, No diarrhea, No nausea, No vomiting Genitourinary: No discharge, No dysuria : Yes Past Oirbsqk-Xiueae-Uixsyx Hx Patient Social History Alcohol Use: Denies Use Recreational Drug Use: No Smoking Status: Current Everyday Smoker Type Used: Cigarettes Former Smoker, Quit: Jan 10, 2016 Recent Foreign Travel: No Contact w/Someone Who Travel: No Recent Infectious Disease Expo: No Recent Hopitalizations: No Immunizations Up To Date Tetanus Booster (TDap): Less than 5yrs PED Vaccines UTD: Yes Date of Pneumonia Vaccine: Nov 11, 2015 Date of Influenza Vaccine: Nov 10, 2015 Seasonal Allergies Seasonal Allergies: No Surgeries History of Surgeries: Yes (DX LAPAROSCOPY FOR ENDOMETRIOSIS) Surgeries: Appendectomy, Tonsillectomy Respiratory History of Respiratory Disorde: Yes (USES INHALER PRN) Respiratory Disorders: Asthma Cardiovascular History of Cardiac Disorders: No Neurological History of Neurological Disord: No Reproductive System Hx Reproductive Disorders: Yes Female Reproductive Disorders: Endometriosis, Ovarian Cyst Genitourinary History of Genitourinary Disor: Yes Genitourinary Disorders: Bladder Infection Gastrointestinal History of Gastrointestinal Di: No Musculoskeletal History of Musculoskeletal Dis: No Endocrine History of Endocrine Disorders: No HEENT History of HEENT Disorders: No Cancer History of Cancer: No Psychosocial History of Psychiatric Problem: Yes Behavioral Health Disorders: Anxiety, Bipolar, Depression Integumentary History of Skin or Integumenta: Yes Skin/Integumentary Disorders: Eczema Blood Transfusions History of Blood Disorders: No Adverse Reaction to a Blood Tr: No Family Medical History Family Medial History: Headache disorder 19 MOTHER Hypertension 19 MOTHER Thyroid disease 19 MOTHER Physical Exam Vital Signs Vital Signs - First Documented 03/29/17 03/29/17 17:18 18:36 Temp 98.2 Pulse 88 Resp 18 B/P (MAP) 115/79 (91) Pulse Ox 97 O2 Delivery Room Air Capillary Refill : Less Than 3 Seconds General Appearance: WD/WN, no apparent distress HEENT: PERRL/EOMI, normal ENT inspection, TMs normal, pharynx normal Neck: non-tender, full range of motion, supple, normal inspection, lymphadenopathy (R) (Bilateral shoddy lymphadenopathy cervical anterior region.) , lymphadenopathy (L) Cardiovascular: normal peripheral pulses, regular rate, rhythm, no edema Respiratory: lungs clear, normal breath sounds, no respiratory distress, no accessory muscle use Gastrointestinal: normal bowel sounds, non tender, soft Coordination/Gait: normal gait Motor/Sensory: no motor deficit, no sensory deficit, no pronator drift Skin: normal color, warm/dry Lymphatic: no adenopathy Progress/Results/Core Measures Results/Orders Lab Results Laboratory Tests Test 03/29/17 18:14 03/29/17 18:51 Range/Units Group A Streptococcus Screen NEGATIVE NEGATIVE Glucometer 113 H 70-110 MG/DL My Orders Orders - CHACORTA MANDUJANO Rapid Strep A Screen (03/29/17 18:18) Accucheck Stat ONCE (03/29/17 18:30) Vital Signs/I&O Vital Sign - Last 12Hours 03/29/17 2 17:18 18:36 Temp 98.2 Pulse 88 82 Resp 18 18 B/P (MAP) 115/79 (91) 103/47 (65) Pulse Ox 97 98 O2 Delivery Room Air Blood Pressure Mean: 91 Progress Note : Time: 18:26 Progress Note Despite her history at 14 weeks she is unlikely to be experiencing preeclampsia. She has no hypertension and no swelling. Her headache most likely sounds like maybe related to a virus and dehydration given her work environment. We'll encourage her to drink more fluids and use Tylenol. She's been using Tylenol once or twice a day. Also encouraged her for the next couple days to use the albuterol once or twice a day regardless of whether she feels short of breath see if this improves some of her symptoms as central chest pain could also be from bronchospasm. Since she is not having any cough, wheezing or feeling of shortness of breath asthma does not seem to be a source of her chest pain. She is also not having any reflux and the EKG does not demonstrate any evidence of pericarditis. Either way NSAIDs and steroids or off the table secondary to if she is having pleuritic chest pain. We'll check her blood glucose and since she's having a sore throat we'll also check for strep throat. Pulmonary embolism is fairly unlikely given she has no evidence of a DVT , hemoptysis, shortness of breath or objective findings shortness of air. If these are okay have encouraged her to keep her follow-up appointment this week with her OB provider. ECG Initial ECG Impression Date: Mar 29, 2017 Initial ECG Impression Time: 17:32 Initial ECG Rate: 77 Initial ECG Rhythm: Normal Sinus Initial ECG Intervals: Normal Initial ECG Impression: Normal Initial ECG Comparisson: No Previous ECG Available Comment No evidence for T-wave elevation or depression. Departure Impression Impression: Primary Impression: Head ache Qualified Codes: G44.201 - Tension-type headache, unspecified, intractable Additional Impression: Qualified Codes: Z3A.14 - 14 weeks gestation of Disposition: 01 HOME, SELF-CARE Condition: Stable Departure-Patient Inst. Decision time for Depature: 19:03 Referrals: KENY WILSON APRN (PCP) Primary Care Physician Patient Instructions: Headache, Adult (DC) Add. Discharge Instructions: Drink lots of water and sports drinks. Get some rest. If you're having TMJ pain or dental pain see a dentist. It is likely that this is made worse by a virus and will get better in 7-10 days. If it does not get better in 7-10 days and would like to follow up with your primary care physician or your OB doctor to discuss what else can be done. You can use Tylenol 1000 mg every 8 hours as needed for pain. Avoid NSAIDs such as Aleve, Naprosyn, Motrin unless cleared by your OB provider. Keep your follow-up appointment with the OB provider. All discharge instructions reviewed with patient and/or family. Voiced understanding. Copy Copies To 1: FABRIZIO NAVAS TITUS J Mar 29, 2017 18:24
[2017-03-29 18:36] VITALS: BP 103/47
[2017-03-29 19:08] VITALS: BP 112/60
== END 2017-03-29 19:09 | disposition home or self-care (01) ==
LOC: EDUNIT# 16:22 → ER 16:24
DX: O99.352 Diseases of the nervous system complicating pregnancy, second trimester (principal); R51 Headache; O99.342 Other mental disorders complicating pregnancy, second trimester; F31.9 Bipolar disorder, unspecified; F41.9 Anxiety disorder, unspecified; O99.332 Smoking (tobacco) complicating pregnancy, second trimester; F17.210 Nicotine dependence, cigarettes, uncomplicated; Z88.0 Allergy status to penicillin; Z3A.14 14 weeks gestation of pregnancy; Z90.49 Acquired absence of other specified parts of digestive tract; Z90.89 Acquired absence of other organs; Z87.448 Personal history of other diseases of urinary system; Z88.1 Allergy status to other antibiotic agents; Z88.6 Allergy status to analgesic agent
CPT/HCPCS: 82962; 87430; 93005

== ENCOUNTER 2017-03-30 10:00 | Emergency (ER) | payer OTHER ==
[~2017-03-30] VITALS: Ht 170.2 cm; Wt 77.1 kg
[2017-03-30 10:17] VITALS: BP 112/84
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
== END 2017-03-30 12:14 | disposition left against medical advice (07) ==
LOC: EDUNIT# 10:00 → ER 10:02
DX: O9A.212 Injury, poisoning and certain other consequences of external causes complicating pregnancy, second trimester (principal); R10.32 Left lower quadrant pain; O99.342 Other mental disorders complicating pregnancy, second trimester; F41.9 Anxiety disorder, unspecified; F31.9 Bipolar disorder, unspecified; O99.512 Diseases of the respiratory system complicating pregnancy, second trimester; J45.909 Unspecified asthma, uncomplicated; Z79.52 Long term (current) use of systemic steroids; Z87.891 Personal history of nicotine dependence; Z90.49 Acquired absence of other specified parts of digestive tract; Z90.89 Acquired absence of other organs; Z87.42 Personal history of other diseases of the female genital tract; Z88.0 Allergy status to penicillin; Z88.1 Allergy status to other antibiotic agents
CPT/HCPCS: 76801; 99282

== ENCOUNTER 2017-04-25 21:08 | Emergency (ER) | payer OTHER ==
[~2017-04-25] VITALS: Ht 170.2 cm; Wt 77.6 kg
[2017-04-25] MEDS ORDERED: LACTATED RINGERS 1,000 ML IV ONE (21:48)
[2017-04-25 22:06] LABS: BASOPHILS % (AUTO) 0 % (0-10); EOSINOPHILS # (AUTO) 0.5 10^3/uL (0.0-0.3); EOSINOPHILS % (AUTO) 4 % (0-10); HEMATOCRIT 31 % (35-52); HEMOGLOBIN 10.9 G/DL (11.5-16.0); LYMPHOCYTES # (AUTO) 2.1 X 10^3 (1.0-4.0); LYMPHOCYTES % (AUTO) 20 % (12-44); MEAN CORPUSCULAR HEMOGLOBIN 26 PG (25-34); MEAN CORPUSCULAR HGB CONC 36 G/DL (32-36); MEAN CORPUSCULAR VOLUME 72 FL (80-99); MEAN PLATELET VOLUME 9.9 FL (7.4-10.4); MONOCYTES # (AUTO) 0.8 X 10^3 (0.0-1.0); MONOCYTES % (AUTO) 8 % (0-12); NEUTROPHILS # (AUTO) 7.1 X 10^3 (1.8-7.8); NEUTROPHILS % (AUTO) 68 % (42-75); PLATELET COUNT 255 10^3/uL (130-400); RED BLOOD COUNT 4.24 10^6/uL (4.35-5.85); RED CELL DISTRIBUTION WIDTH 15.9 % (10.0-14.5); WHITE BLOOD COUNT 10.5 10^3/uL (4.3-11.0)
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
[2017-04-25] MEDS ORDERED: LORA10CA PO (22:26)
[2017-04-25 22:34] LABS: ALANINE AMINOTRANSFERASE 7 U/L (0-55); ALBUMIN 3.6 GM/DL (3.2-4.5); ALKALINE PHOSPHATASE 82 U/L (40-136); AMYLASE 54 U/L (25-125); BILIRUBIN,TOTAL 0.2 MG/DL (0.1-1.0); BUN/CREATININE RATIO 17; CALCIUM 8.8 MG/DL (8.5-10.1); CARBON DIOXIDE 23 MMOL/L (21-32); CHLORIDE 106 MMOL/L (98-107); CREATININE SERUM 0.53 MG/DL (0.60-1.30); GFR ESTIMATED > 60; GLUCOSE 91 MG/DL (70-105); LIPASE 29 U/L (8-78); POTASSIUM 3.6 MMOL/L (3.6-5.0); SODIUM 137 MMOL/L (135-145); TOTAL PROTEIN 6.1 GM/DL (6.4-8.2)
[2017-04-25] MEDS ORDERED: ACETAMINOPHEN 500 MG TAB (TYLENOL) PO ONE (23:45)
[2017-04-26 00:05] VITALS: BP 110/68
[2017-04-26 00:45] LABS: BILIRUBIN,URINE NEGATIVE (NEGATIVE); CLARITY,URINE SLIGHTLY CLOUDY; COLOR,URINE YELLOW; GLUCOSE, URINE (UA) NEGATIVE (NEGATIVE); KETONES,URINE NEGATIVE (NEGATIVE); LEUKOCYTE ESTERASE ,URINE 2+ (NEGATIVE); NITRITE,URINE NEGATIVE (NEGATIVE); PH,URINE 7 (5-9); PROTEIN,URINE NEGATIVE (NEGATIVE); UROBILINOGEN,URINE NORMAL (NORMAL)
[2017-04-26 00:51] LABS: BACTERIA,URINE MODERATE /HPF; WBC,URINE RARE /HPF
[2017-04-26 00:52] LABS: AMORPHOUS SEDIMENT,UR FEW AMOR PHOSPHATE /LPF
--- NOTE | 2017-04-26 07:08 | Diagnostic Imaging Report ---
INDICATION: Neck pain. Cervical spine FINDINGS: AP and lateral views of the cervical spine show normal vertebral body height and alignment. Disc spaces are well maintained. There is no prevertebral soft tissue swelling. IMPRESSION: Negative cervical spine. Dictated by: Dictated on workstation # [id number]
--- NOTE | 2017-04-26 07:11 | Diagnostic Imaging Report ---
INDICATION: Left shoulder pain. FINDINGS: 3 views of left shoulder show no fracture, dislocation or other acute abnormalities. IMPRESSION: Negative left shoulder. Dictated by: Dictated on workstation # [id number]
--- NOTE | 2017-04-26 07:44 | Diagnostic Imaging Report ---
INDICATION: Fall. TECHNIQUE: Multiple real time grayscale images were obtained of the gravid uterus in various projections. FINDINGS: There is a single living intrauterine in a cephalic presentation. There is normal volume of amniotic fluid. Placenta is anterior. There is no previa. heartrate is 142 beats per minute. Gestational age by first sono is 18 weeks 3 days. Maternal adnexa is unremarkable. There is no free fluid. IMPRESSION: Single living intrauterine gestation. No acute findings. Dictated by: Dictated on workstation # [id number]
--- NOTE | 2017-04-26 07:45 | Diagnostic Imaging Report ---
PROCEDURE: US abdomen complete. TECHNIQUE: Multiple real-time grayscale images were obtained over the abdomen in various projections. INDICATION: Fall at 18 weeks . FINDINGS: The liver is normal in size and without focal lesions. There is no obvious biliary ductal dilatation although the common bile duct is not well seen. There is no cholelithiasis, gallbladder wall thickening or pericholecystic fluid. The pancreas is obscured by bowel gas. The spleen is normal in size. The aorta is obscured. IVC is patent. Both kidneys are normal in appearance. There is no ascites. IMPRESSION: Essentially unremarkable abdominal ultrasound. Dictated by: Dictated on workstation # [id number]
== END 2017-04-26 00:05 | disposition home or self-care (01) ==
LOC: EDUNIT# 21:08 → ER 21:10
DX: O9A.22 Injury, poisoning and certain other consequences of external causes complicating childbirth (principal); S16.1XXA Strain of muscle, fascia and tendon at neck level, initial encounter; S39.012A Strain of muscle, fascia and tendon of lower back, initial encounter; S40.012A Contusion of left shoulder, initial encounter; S30.1XXA Contusion of abdominal wall, initial encounter; O99.512 Diseases of the respiratory system complicating pregnancy, second trimester; J45.909 Unspecified asthma, uncomplicated; O99.342 Other mental disorders complicating pregnancy, second trimester; F41.9 Anxiety disorder, unspecified; F31.9 Bipolar disorder, unspecified; Z88.0 Allergy status to penicillin; Z88.1 Allergy status to other antibiotic agents; Z87.448 Personal history of other diseases of urinary system; Z88.6 Allergy status to analgesic agent; Z91.010 Allergy to peanuts; Z91.013 Allergy to seafood; Z91.048 Other nonmedicinal substance allergy status; Z87.891 Personal history of nicotine dependence; Z90.49 Acquired absence of other specified parts of digestive tract; Z90.89 Acquired absence of other organs; Z3A.18 18 weeks gestation of pregnancy; W18.30XA Fall on same level, unspecified, initial encounter
CPT/HCPCS: 36415; 72040; 73030; 76700; 76815; 80053; 81000; 82150; 83690; 85025; 87088; 93005; 93041; 96360

== ENCOUNTER → 2017-05-05 | Outpatient (CLI) | payer OTHER ==
--- NOTE | 2017-05-05 15:11 | Diagnostic Imaging Report ---
INDICATION: survey. TECHNIQUE: Multiple real-time grayscale images were obtained over the gravid uterus. COMPARISON: 04/25/2017. FINDINGS: There is a single live fetus in a breech presentation. The placenta is anterior. The amniotic fluid volume is normal. heart beat was measured at 150 beats per minute. Overall survey is somewhat limited due to position. kidneys and stomach are unremarkable. Bladder was difficult to visualize. The intracranial structures are unremarkable. Four-chamber heart view as well as spine, cord, and cord insertion are limited. No definite complicating feature is seen. Biometrical measurements are as follows: Biparietal 4.4 cm, age 19 weeks 3 days. Head circumference 16.8 cm, age 19 weeks 4 days. Abdominal circumference 14.5 cm, age 19 weeks 6 days. Femur length 3.2 cm, age 19 weeks 6 days. Sonographic estimate age: 19 weeks 5 days. Sonographic estimated date of delivery: 09/24/17. Estimated Weight: 314 gm (+/- 46 gm). LMP percentile: 42%. heart rate: 150 beats per minute. number: 1 of 1. IMPRESSION: Single live fetus at approximately 19 weeks 5 days gestational age with an estimated date of confinement sonographically of 09/24/2017. survey was limited due to position. Followup ultrasound could be performed. Dictated by: Dictated on workstation # [id number]
== END ==
LOC: RAD 13:22
PROVIDERS: ATTEND Obstetrics & Gynecology
DX: Z36.89 Encounter for other specified antenatal screening (principal); Z3A.19 19 weeks gestation of pregnancy
CPT/HCPCS: 76805

== ENCOUNTER 2017-06-20 21:04 | Outpatient (CLI) | payer OTHER, MEDICAID ==
[~2017-06-20] VITALS: Ht 170.2 cm; Wt 86.6 kg
[2017-06-20 21:25] VITALS: BP 116/57
[2017-06-20 21:41] LABS: BILIRUBIN,URINE NEGATIVE (NEGATIVE); CLARITY,URINE CLEAR; COLOR,URINE YELLOW; GLUCOSE, URINE (UA) NEGATIVE (NEGATIVE); KETONES,URINE NEGATIVE (NEGATIVE); LEUKOCYTE ESTERASE ,URINE 3+ (NEGATIVE); NITRITE,URINE NEGATIVE (NEGATIVE); PH,URINE 8 (5-9); PROTEIN,URINE NEGATIVE (NEGATIVE); UROBILINOGEN,URINE NORMAL (NORMAL)
[2017-06-20 21:51] LABS: BACTERIA,URINE MODERATE /HPF; WBC,URINE 0-2 /HPF
[2017-06-20 21:52] LABS: AMORPHOUS SEDIMENT,UR FEW AMOR PHOSPHATE /LPF
[2017-06-20] MEDS ORDERED: APAP 300 MG/CODEINE 30 MG (TYLENOL #3) TAB PO ONE ×4 (22:02→22:15)
--- NOTE | 2017-06-22 12:21 | Physician Query-Final Dx ---
VANDANA DIETRICH 06/22/17 1221: Clinic Account Progress/Dx Physician Query: Please give diagnosis Date of Service June 20, 2017 at 21:04 FABRIZIO NAVAS DO 06/23/17 1317: Clinic Account Progress/Dx DIAGNOSIS: Diagnosis 26 week IUP Chronic DIALLO VANDANA DIETRICH June 22, 2017 12:21 FABRIZIO NAVAS DO June 23, 2017 13:17
== END 2017-06-20 22:33 | disposition home or self-care (01) ==
LOC: WSo 21:04 → LDRP 21:05 → WSo 22:33
PROVIDERS: ATTEND Obstetrics & Gynecology
DX: O99.89 Other specified diseases and conditions complicating pregnancy, childbirth and the puerperium (principal); R51 Headache; Z3A.26 26 weeks gestation of pregnancy
CPT/HCPCS: 81000; 99212

== ENCOUNTER 2017-08-27 13:08 | Outpatient (CLI) | payer OTHER, MEDICAID ==
[~2017-08-27] VITALS: Ht 170.2 cm; Wt 94.5 kg
[2017-08-27 13:27] VITALS: BP 131/65
[2017-08-27] MEDS ORDERED: NITR-65 PO (14:39)
--- NOTE | 2017-08-28 11:27 | Physician Query-Final Dx ---
KULWINDER BASHIR 08/28/17 1127: Clinic Account Progress/Dx Physician Query: Please give diagnosis Date of Service Aug 27, 2017 at 13:08 STACEY ROSALES MD 08/28/17 1259: Clinic Account Progress/Dx DIAGNOSIS: Diagnosis False labor KULWINDER BASIHR Aug 28, 2017 11:27 STACEY ROSALES MD Aug 28, 2017 12:59
[2017-09-12] MEDS ORDERED: FERR325T18 PO (09:04)
[2017-09-12] MEDS ORDERED: ACHD5005 PO (09:04)
[2017-09-12] MEDS ORDERED: Benzocaine/Menthol TP (09:04)
[2017-09-12] MEDS ORDERED: DOCU100C37 PO (09:04)
== END 2017-08-27 14:49 | disposition home or self-care (01) ==
LOC: WSo 13:08 → LDRP 13:09 → WSo 14:49
PROVIDERS: ATTEND Obstetrics & Gynecology
DX: O47.03 False labor before 37 completed weeks of gestation, third trimester (principal); Z3A.36 36 weeks gestation of pregnancy
CPT/HCPCS: 87088; 99214

== ENCOUNTER 2017-09-02 23:11 | Outpatient (CLI) | payer OTHER, MEDICAID ==
[~2017-09-02] VITALS: Ht 170.2 cm; Wt 95.4 kg
[2017-09-02 23:33] VITALS: BP 127/69
[2017-09-03 00:30] VITALS: BP 121/68
[2017-09-03 01:08] LABS: BILIRUBIN,URINE NEGATIVE (NEGATIVE); CLARITY,URINE CLEAR; COLOR,URINE YELLOW; GLUCOSE, URINE (UA) NEGATIVE (NEGATIVE); KETONES,URINE NEGATIVE (NEGATIVE); LEUKOCYTE ESTERASE ,URINE 2+ (NEGATIVE); NITRITE,URINE NEGATIVE (NEGATIVE); PH,URINE 7 (5-9); PROTEIN,URINE NEGATIVE (NEGATIVE); UROBILINOGEN,URINE NORMAL (NORMAL)
[2017-09-03 01:17] LABS: BACTERIA,URINE MODERATE /HPF
--- NOTE | 2017-09-04 10:04 | Physician Query-Final Dx ---
VANDANA DIETRICH 09/04/17 1004: Clinic Account Progress/Dx Physician Query: Please give diagnosis Date of Service Sep 02, 2017 at 23:11 FABRIZIO NAVAS DO 09/04/17 1224: Clinic Account Progress/Dx DIAGNOSIS: Diagnosis Uterine contractions Term VANDANA DIETRICH Sep 04, 2017 10:04 FABRIZIO NAVAS DO Sep 04, 2017 12:24
[2017-09-12] MEDS ORDERED: FERR325T18 PO (09:04)
[2017-09-12] MEDS ORDERED: DOCU100C37 PO (09:04)
[2017-09-12] MEDS ORDERED: Benzocaine/Menthol TP (09:04)
[2017-09-12] MEDS ORDERED: ACHD5005 PO (09:04)
== END 2017-09-03 01:30 | disposition home or self-care (01) ==
LOC: WSo 23:11 → LDRP 23:12 → WSo 09-03 01:30
PROVIDERS: ATTEND Obstetrics & Gynecology
DX: O47.1 False labor at or after 37 completed weeks of gestation (principal); Z3A.37 37 weeks gestation of pregnancy
CPT/HCPCS: 81000; 87088; 99213

== ENCOUNTER 2017-09-05 17:55 | Outpatient (CLI) | payer OTHER, MEDICAID ==
[~2017-09-05] VITALS: Ht 170.2 cm; Wt 95.4 kg
[2017-09-05 18:25] VITALS: BP 120/66
[2017-09-05 19:20] VITALS: BP 126/58
[2017-09-05] MEDS ORDERED: FLUC200T PO (20:26)
[2017-09-05] MEDS ORDERED: fluCOnazole (DIFLUCAN) 100 MG TAB PO ONE (20:30)
[2017-09-05] MEDS ORDERED: fluCOnazole (DIFLUCAN) 100 MG TAB ONE (20:31)
--- NOTE | 2017-09-07 21:05 | Physician Query-Final Dx ---
KULWINDER BASHIR 09/07/17 2105: Clinic Account Progress/Dx Physician Query: Please give diagnosis Date of Service Sep 05, 2017 at 17:55 STACEY ROSALES MD 09/09/17 1222: Clinic Account Progress/Dx DIAGNOSIS: Diagnosis UTI KULWINDER BASHIR Sep 07, 2017 21:05 STACEY ROSALES MD Sep 09, 2017 12:22
[2017-09-12] MEDS ORDERED: ACHD5005 PO (09:04)
[2017-09-12] MEDS ORDERED: Benzocaine/Menthol TP (09:04)
[2017-09-12] MEDS ORDERED: FERR325T18 PO (09:04)
[2017-09-12] MEDS ORDERED: DOCU100C37 PO (09:04)
== END 2017-09-05 20:42 | disposition home or self-care (01) ==
LOC: LDRP 17:55 → WSo 17:55
PROVIDERS: ATTEND Obstetrics & Gynecology
DX: O23.43 Unspecified infection of urinary tract in pregnancy, third trimester (principal); Z3A.37 37 weeks gestation of pregnancy
CPT/HCPCS: 87210; 99214

== ENCOUNTER 2017-09-09 21:32 | Outpatient (CLI) | payer OTHER, MEDICAID ==
[~2017-09-09] VITALS: Ht 170.2 cm; Wt 94.9 kg
[~2017-09-09 21:32] MED LIST changes: +FLUC200T PO
[2017-09-09 21:42] VITALS: BP 131/72
--- NOTE | 2017-09-10 11:49 | Physician Query-Final Dx ---
VANDANA DEITRICH 09/10/17 1149: Clinic Account Progress/Dx Physician Query: Please give diagnosis Date of Service Sep 09, 2017 at 21:32 FABRIZIO NAVAS DO 09/11/17 0844: Clinic Account Progress/Dx DIAGNOSIS: Diagnosis 38 weeks Uterine contractions VANDANA DIETRICH Sep 10, 2017 11:49 FABRIZIO NAVAS DO Sep 11, 2017 08:44
== END 2017-09-09 23:19 | disposition home or self-care (01) ==
LOC: WSo 21:32 → LDRP 21:34 → WSo 23:19
PROVIDERS: ATTEND Obstetrics & Gynecology
DX: O47.1 False labor at or after 37 completed weeks of gestation (principal); Z3A.38 38 weeks gestation of pregnancy
CPT/HCPCS: 99213

== ENCOUNTER 2017-09-11 09:23 | Inpatient (IN) | payer OTHER, MEDICAID ==
[~2017-09-11] VITALS: Ht 170.2 cm; Wt 94.8 kg
[2017-09-11] VITALS (38 sets, daily range): BP systolic 105–141; BP diastolic 56–83
[2017-09-11] MEDS ORDERED: D5 LR IV SOLUTION 1,000 ML IV ONE (09:54)
[2017-09-11] MEDS: D5 LR IV SOLUTION 1,000 ML IV SCH ×2 (10:00→23:28)
[2017-09-11] MEDS ORDERED: MINERAL OIL CONCENTRATE 99.9% 15 ML UDC TOP PRN (10:00)
[2017-09-11 10:15] LABS: BASOPHILS % (AUTO) 0 % (0-10); EOSINOPHILS # (AUTO) 0.1 10^3/uL (0.0-0.3); EOSINOPHILS % (AUTO) 1 % (0-10); HEMATOCRIT 30 % (35-52); HEMOGLOBIN 10.2 G/DL (11.5-16.0); LYMPHOCYTES # (AUTO) 1.4 X 10^3 (1.0-4.0); LYMPHOCYTES % (AUTO) 15 % (12-44); MEAN CORPUSCULAR HEMOGLOBIN 24 PG (25-34); MEAN CORPUSCULAR HGB CONC 34 G/DL (32-36); MEAN CORPUSCULAR VOLUME 72 FL (80-99); MEAN PLATELET VOLUME 10.3 FL (7.4-10.4); MONOCYTES # (AUTO) 0.6 X 10^3 (0.0-1.0); MONOCYTES % (AUTO) 6 % (0-12); NEUTROPHILS # (AUTO) 7.3 X 10^3 (1.8-7.8); NEUTROPHILS % (AUTO) 78 % (42-75); PLATELET COUNT 330 10^3/uL (130-400); RED BLOOD COUNT 4.21 10^6/uL (4.35-5.85); RED CELL DISTRIBUTION WIDTH 17.5 % (10.0-14.5); WHITE BLOOD COUNT 9.4 10^3/uL (4.3-11.0)
[2017-09-11] MEDS ORDERED: SUFENTA 0.6MCG/ML BUPIVA 0.125 100 ML ONE (10:43)
[2017-09-11] MEDS ORDERED: BUPIVACAINE 0.25% 30 ML (SENSORCAINE) VIAL ONE (10:56)
[2017-09-11] MEDS ORDERED: LIDOCAINE PF 2% 5 ML (XYLOCAINE) VIAL ONE (10:56)
[2017-09-11] MEDS ORDERED: fentaNYL INJECTION 100 MCG/2 ML AMP ONE (10:56)
[2017-09-11] MEDS ORDERED: LACTATED RINGERS 1,000 ML IV SCH (11:23)
[2017-09-11] MEDS ORDERED: diphenhydrAMINE 50 MG/ML INJ (BENADRYL) IV PRN (11:30)
[2017-09-11] MEDS ORDERED: NALOXONE 0.4 MG/ML 1 ML (NARCAN) VIAL IV PRN (11:30)
[2017-09-11] MEDS ORDERED: EPIDURAL (SUFENTA 0.6MCG/ML BUPIVA 0.125%) 100 ML BAG EPI PRN (11:30)
[2017-09-11] MEDS ORDERED: ONDANSETRON 4 MG/2 ML (SDV) Z0FRAN IV PRN (11:30)
--- NOTE | 2017-09-11 13:59 | History & Physical-OB ---
OB - Chief Complaint & HPI Date/Time Date of Admission: Date of Admission: Sep 11, 2017 at 9:42 am Time Seen by Provider: 13:30 Chief Complaint/History OB-Reason for Admission/Chief: Onset of Labor Hx : 2 Hx Para: 1 Expected Date of Delivery: Sep 23, 2017 Gestational Age in Weeks: 38 Gestational Age in Days: 2 History of Labs O neg Antibody + (anti D from Rhogam) RNI HBsAg NR HIV NR RPR NR GC neg GBS neg Allergies and Home Medications Allergies Coded Allergies: Penicillins (Verified Allergy, Mild, 12/07/15) amoxicillin (Verified Allergy, Mild, 12/07/15) cat dander (Verified Allergy, Mild, 12/07/15) erythromycin base (Verified Allergy, Mild, 12/07/15) ibuprofen (Verified Allergy, Mild, 12/07/15) mold (Verified Allergy, Mild, 12/07/15) peanut (Verified Allergy, Mild, 12/07/15) sesame seed (Verified Allergy, Mild, 12/07/15) shrimp (Verified Allergy, Mild, 12/07/15) Uncoded Allergies: MAPLE TREES (Allergy, Mild, 12/07/15) Home Medications Albuterol Sulfate 8.5 Gm Hfa.aer.ad, 1-2 PUFF IH QID, (Reported) Diphenhydramine HCl 25 Mg Capsule, 25 MG PO PRN, (Reported) Loratadine 10 Mg Capsule, 10 MG PO DAILY, (Reported) Pediatric Multivitamin Comb#30 1 Each Tab.chew, 2 EACH PO DAILY, (Reported) Patient Home Medication List Home Medication List Reviewed: Yes OB - History Hx of Present Care: Yes Ultrasounds: Normal mid trimester US Obstetrical Complications: None Medical Complications: None Delivery History Hx Blood Disorders: No (BLOOD TYPE O NEGATIVE) Adverse Rxn to Tranfusion: No Patient Past Medical History n/a Social History/Family History HIV/AIDS: No Recent Infectious Disease Expo: No Sexually Transmitted Disease: No Alcohol Use: Denies Use Recreational Drug Use: No 2nd Hand Smoke Exposure: No Immunizations Hepatitis A: Yes Hepatitis B: Yes Tetanus Booster (TDap): Less than 5yrs Date of Pneumonia Vaccine: Nov 11, 2015 Date of Influenza Vaccine: Oct 09, 2016 OB - Admission Exam Physical Exam Vitals: Vital Signs 09/11/17 09/11/17 10:00 11:30 Temp 96.7 Pulse 88 Resp 18 B/P (MAP) 109/56 (73) Pulse Ox 98 O2 Delivery Room Air HEENT: NCAT Heart: Rhythm Normal Lungs: Clear Abdomen: Gravid Extremities: Normal Reflexes: Normal Cervical Dilatation: 5cm Effacement: 50% Station: -1 Membranes: Intact Heart Rate: 130's Accelerations: Accelerations Present Decelerations: No Decelerations Short Term Variability: Present Factory Assembler Variability: Average (6-25) Contractions on Admission: < 5 Minutes Apart Intensity: Firm Labs Laboratory Tests Test 09/11/17 09:52 Range/Units White Blood Count 9.4 4.3-11.0 10^3/uL Red Blood Count 4.21 L 4.35-5.85 10^6/uL Hemoglobin 10.2 L 11.5-16.0 G/DL Hematocrit 30 L 35-52 % Mean Corpuscular Volume 72 L 80-99 FL Mean Corpuscular Hemoglobin 24 L 25-34 PG Mean Corpuscular Hemoglobin Concent 34 32-36 G/DL Red Cell Distribution Width 17.5 H 10.0-14.5 % Platelet Count 330 130-400 10^3/uL Mean Platelet Volume 10.3 7.4-10.4 FL Neutrophils (%) (Auto) 78 H 42-75 % Lymphocytes (%) (Auto) 15 12-44 % Monocytes (%) (Auto) 6 0-12 % Eosinophils (%) (Auto) 1 0-10 % Basophils (%) (Auto) 0 0-10 % Neutrophils # (Auto) 7.3 1.8-7.8 X 10^3 Lymphocytes # (Auto) 1.4 1.0-4.0 X 10^3 Monocytes # (Auto) 0.6 0.0-1.0 X 10^3 Eosinophils # (Auto) 0.1 0.0-0.3 10^3/uL Basophils # (Auto) 0.0 0.0-0.1 10^3/uL OB - Assessment/Plan/Diagnosis Assessment Assessment: active labor Admission Dx 22yo @ 38.2 Active labor GBS neg Rubella non-immune Admission Status: Inpatient Order (span 2 midnights) Reason for Inpatient Admission: Active labor Term Plan Plan: Expectant Management FABRIZIO NAVAS DO Sep 11, 2017 1:58 pm
[2017-09-11] MEDS ORDERED: LIDOCAINE/EPI 2% 1:200,00 (XYLOCAINE) 10 ML VIAL ONE (16:32)
[2017-09-11] MEDS ORDERED: OXYTOCIN/NORMAL SALINE 500 ML IV ONE (16:32)
[2017-09-11] MEDS ORDERED: OXYTOCIN/NORMAL SALINE 500 ML IV SCH (17:24)
--- NOTE | 2017-09-11 17:29 | OB Labor & Delivery Record ---
L&D History Date of Service Date of Service: Sep 11, 2017 History Expected Date of Delivery: Sep 23, 2017 Gestational Age in Weeks: 38 Hx : 2 Hx Para: 1 Complications Events: Routine care Operative Indications (Cesarea: N/A-Vaginal Delivery Intrapartal Events: None L&D Stage1 Stage One Onset of Labor - Date: Sep 11, 2017 Monitors and Tracing Monitor Mode: External Heart Rate: 115 Station: 0 Vital Signs VS - Last 72 Hours, by Label 09/11/17 09/11/17 09/11/17 09/11/17 10:00 10:15 10:30 10:45 Temp 96.7 Pulse 93 103 87 83 Resp 22 18 18 B/P (MAP) 133/83 (100) 113/62 (79) 117/71 (86) 112/70 (84) O2 Delivery Room Air Room Air Room Air Room Air 09/11/17 09/11/17 09/11/17 09/11/17 11:00 11:15 11:15 11:21 Pulse 88 96 100 83 Resp 18 18 B/P (MAP) 118/56 (76) 120/63 (82) 122/62 (82) 109/63 (78) Pulse Ox 97 97 97 O2 Delivery Room Air Room Air Room Air Room Air 09/11/17 09/11/17 09/11/17 09/11/17 11:26 11:30 11:45 12:00 Pulse 98 88 94 91 Resp 18 18 20 18 B/P (MAP) 119/69 (86) 109/56 (73) 119/70 (86) 125/65 (85) Pulse Ox 98 98 97 97 O2 Delivery Room Air Room Air Room Air Room Air 09/11/17 09/11/17 09/11/17 09/11/17 12:15 12:30 12:45 13:00 Pulse 93 85 85 85 Resp 18 18 20 20 B/P (MAP) 116/70 (85) 116/63 (80) 115/77 (90) 111/66 (81) Pulse Ox 99 99 99 99 O2 Delivery Room Air Room Air Room Air Room Air 09/11/17 09/11/17 09/11/17 13:15 13:30 13:45 Pulse 78 85 86 Resp 18 18 20 B/P (MAP) 117/59 (78) 108/66 (80) 112/67 (82) Pulse Ox 99 97 99 O2 Delivery Room Air Room Air Room Air Rupture of Membranes Spontaneous Ruture of Membrane: No Amniotic Membrane Rupture Time: 1350 Amniotic Membrane Fluid Desc.: Clear Vaginal Bleeding Description: Normal Show Induction/Anesthesia Epidural Cath Placement - Time: 1113 Progress/Notes No augmentation other than AROM performed, patient progressed to complete and + 1 station L&D Stage2 Stage Two Stage II Date: Sep 11, 2017 Monitors and Tracing Monitor Mode: External Heart Rate: 115 Monitor Decelerations: Variable Prefitter Doors Variability: Average (6-10) Short Term Variability: Present Position: Right Occiput Anterior Presentation: Vertex Cord Descript/Complications Cord Vessel Description: 3 Vessels Delivery Type Infant Delivery Method: Spontaneous Vaginal Anterior Shoulder: Left Episiotomy/Perineal Laceration Laceraction(s)/Extensions: Yes Episiotomy Description: Right Mediolateral Degree (describe repair) RML repaired using 3-0 rapide suture in usual fashion Condition of Delivery 1 minute Comment: 8 5 minute Comment: 9 Notes Live female infant weight 7lbs 3 oz Condition of Condition of : Living Exam: No Observed Abnormalities Resuscitation Resuscitation: N/A - Spontaneous Resp L&D Stage3 Stage Three Stage III Date: Sep 11, 2017 Pictocin Pitocin Administration Comment: 30 mu wide open at delivery of placenta Placenta Delivery Placenta Delivery: Spontaneous Delivery Summary Summary Estimated blood loss (mL): 350 Attending at delivery: Fabrizio Navas DO Condition of Delivery Examined: Cervix Examined, Uterus Explored Post Hemorrhage: No Condition of Mother stable Condition of (s) stable AFBRIZIO NAVAS DO Sep 11, 2017 5:29 pm
[2017-09-11] MEDS ORDERED: TETANUS,DIPTH,PERTUSS P/F (BOOSTRIX) 0.5 ML VIAL IM ONE (17:30)
[2017-09-11] MEDS ORDERED: BENZOCAINE/MENTHOL (DERMOPLAST) 56 ML CAN TP PRN (17:30)
[2017-09-11] MEDS ORDERED: MEASLES,MUMPS,RUBELLA 1 EA INJ SQ ONE (17:30)
[2017-09-11] MEDS ORDERED: IBUPROFEN 600 MG (MOTRIN) TAB PO SCH (17:30)
[2017-09-11] MEDS ORDERED: WITCH HAZEL(TUCKS) 40 EA JAR TOP PRN (17:30)
[2017-09-11] MEDS ORDERED: DIBUCAINE (NUPERCAINAL) 1% OINT 30 GM TOP PRN (17:30)
[2017-09-11] MEDS: DOCUSATE SODIUM 100 MG (COLACE) CAP PO SCH (20:40)
[2017-09-11] MEDS ORDERED: CATHETER FLUSH 10 ML SYR IV SCH (22:00)
[2017-09-11] MEDS: HYDROcodone/APAP 5 MG/325 MG (LORTAB) TAB PO PRN (23:43)
[2017-09-12 04:09] VITALS: BP 95/69
[2017-09-12] MEDS: HYDROcodone/APAP 5 MG/325 MG (LORTAB) TAB PO PRN (05:33)
[2017-09-12 05:54] LABS: BASOPHILS % (AUTO) 0 % (0-10); EOSINOPHILS # (AUTO) 0.1 10^3/uL (0.0-0.3); EOSINOPHILS % (AUTO) 1 % (0-10); HEMATOCRIT 28 % (35-52); HEMOGLOBIN 9.1 G/DL (11.5-16.0); LYMPHOCYTES # (AUTO) 1.6 X 10^3 (1.0-4.0); LYMPHOCYTES % (AUTO) 14 % (12-44); MEAN CORPUSCULAR HEMOGLOBIN 24 PG (25-34); MEAN CORPUSCULAR HGB CONC 33 G/DL (32-36); MEAN CORPUSCULAR VOLUME 73 FL (80-99); MEAN PLATELET VOLUME 10.2 FL (7.4-10.4); MONOCYTES # (AUTO) 0.7 X 10^3 (0.0-1.0); MONOCYTES % (AUTO) 6 % (0-12); NEUTROPHILS % (AUTO) 79 % (42-75); PLATELET COUNT 271 10^3/uL (130-400); RED BLOOD COUNT 3.86 10^6/uL (4.35-5.85); RED CELL DISTRIBUTION WIDTH 17.8 % (10.0-14.5); WHITE BLOOD COUNT 11.5 10^3/uL (4.3-11.0)
--- NOTE | 2017-09-12 08:22 | Anesthesia-Regional Post-Op ---
Regional Patient Condition Mental Status: Alert, Oriented x3 Circulation: Same as Pre-Op Headache: Absent Sensation: Full Recovery Motor Block: Absent Post Op Complications Complications None Follow Up Care/Instructions Patient Instructions None needed. Anesthesia/Patient Condition Patient is doing well, no complaints, stable vital signs, no apparent adverse anesthesia problems. No complications reported per nursing. D/C home per [facility] Criteria: Yes DEJUAN WASSERMAN CRNA Sep 12, 2017 08:22
[2017-09-12 09:00] VITALS: BP 124/77
--- NOTE | 2017-09-12 09:02 | Postpartum Progress Note ---
Note Note Day #1 Subjective: Patient is without complaints. Ambulating, voiding. Tolerating a regular diet without nausea or vomiting. Normal lochia. Pain is well controlled with oral pain medications. Objective: Vital Sign - Last 24 Hours 09/11/17 09/11/17 09/11/17 09/11/17 10:00 10:15 10:30 10:45 Temp 96.7 Pulse 93 103 87 83 Resp 22 18 18 B/P (MAP) 133/83 (100) 113/62 (79) 117/71 (86) 112/70 (84) O2 Delivery Room Air Room Air Room Air Room Air 09/11/17 09/11/17 09/11/17 09/11/17 11:00 11:15 11:15 11:21 Pulse 88 96 100 83 Resp 18 18 B/P (MAP) 118/56 (76) 120/63 (82) 122/62 (82) 109/63 (78) Pulse Ox 97 97 97 O2 Delivery Room Air Room Air Room Air Room Air 09/11/17 09/11/17 09/11/17 09/11/17 11:26 11:30 11:45 12:00 Pulse 98 88 94 91 Resp 18 18 20 18 B/P (MAP) 119/69 (86) 109/56 (73) 119/70 (86) 125/65 (85) Pulse Ox 98 98 97 97 O2 Delivery Room Air Room Air Room Air Room Air 09/11/17 09/11/17 09/11/17 09/11/17 12:15 12:30 12:45 13:00 Pulse 93 85 85 85 Resp 18 18 20 20 B/P (MAP) 116/70 (85) 116/63 (80) 115/77 (90) 111/66 (81) Pulse Ox 99 99 99 99 O2 Delivery Room Air Room Air Room Air Room Air 09/11/17 09/11/17 09/11/17 09/11/17 13:15 13:30 13:45 14:00 Pulse 78 85 86 86 Resp 18 18 20 20 B/P (MAP) 117/59 (78) 108/66 (80) 112/67 (82) 129/60 (83) Pulse Ox 99 97 99 100 O2 Delivery Room Air Room Air Room Air Room Air 09/11/17 09/11/17 09/11/17 09/11/17 14:15 14:30 14:45 15:00 Pulse 88 98 78 86 Resp 20 18 18 18 B/P (MAP) 122/75 (91) 112/68 (83) 117/62 (80) 116/75 (89) Pulse Ox 99 99 97 99 O2 Delivery Room Air Room Air Room Air Room Air 09/11/17 09/11/17 09/11/17 09/11/17 15:15 15:30 15:45 16:00 Pulse 77 85 83 89 Resp 18 18 18 18 B/P (MAP) 114/63 (80) 112/68 (83) 110/65 (80) 112/69 (83) Pulse Ox 97 98 98 100 O2 Delivery Room Air Room Air Room Air Room Air 09/11/17 09/11/17 09/11/17 09/11/17 16:15 16:30 16:45 16:52 Pulse 91 86 91 95 Resp 20 20 20 20 B/P (MAP) 115/66 (82) 106/66 (79) 118/70 (86) 119/73 (88) Pulse Ox 98 100 100 100 O2 Delivery Room Air Room Air Room Air Room Air 09/11/17 09/11/17 09/11/17 09/11/17 17:07 17:22 17:36 17:51 Temp 97.4 97.5 Pulse 102 97 88 75 Resp 20 18 18 18 B/P (MAP) 130/62 (84) 141/61 (87) 119/56 (77) 119/62 (81) Pulse Ox 100 100 100 O2 Delivery Room Air Room Air Room Air Room Air 09/11/17 09/11/17 09/11/17 09/12/17 18:06 19:51 23:43 04:09 Temp 97.6 98.7 97.8 Pulse 78 91 81 81 Resp 18 18 18 18 B/P (MAP) 105/65 (78) 131/70 (90) 113/63 (80) 95/69 (78) Pulse Ox 100 100 96 99 O2 Delivery Room Air Room Air Room Air Room Air Physical Exam: General - Alert and oriented, no apparent distress Abdomen - Soft, appropriately tender to palpation, non-distended, fundus firm at umbilicus Extremities - no edema, negative Tammi's bilaterally Assessment: PPD 1 NVD Acute blood loss anemia, superimposed on anemia in Plan: Routine care. Encourage breast feeding. Encourage ambulation. Ferrous sulfate supplementation. Plan for discharge tomorrow Vitals - Labs Vital Signs - I&O Vital Signs Date Time Temp Pulse Resp B/P (MAP) Pulse Ox O2 Delivery O2 Flow Rate FiO2 09/12/17 04:09 97.8 81 18 95/69 (78) 99 Room Air 09/11/17 23:43 98.7 81 18 113/63 (80) 96 Room Air 09/11/17 19:51 91 18 131/70 (90) 100 Room Air 09/11/17 18:06 97.6 78 18 105/65 (78) 100 Room Air 09/11/17 17:51 75 18 119/62 (81) 100 Room Air 09/11/17 17:36 97.5 88 18 119/56 (77) 100 Room Air 09/11/17 17:22 97.4 97 18 141/61 (87) 100 Room Air 09/11/17 17:07 102 20 130/62 (84) Room Air 09/11/17 16:52 95 20 119/73 (88) 100 Room Air 09/11/17 16:45 91 20 118/70 (86) 100 Room Air 09/11/17 16:30 86 20 106/66 (79) 100 Room Air 09/11/17 16:15 91 20 115/66 (82) 98 Room Air 09/11/17 16:00 89 18 112/69 (83) 100 Room Air 09/11/17 15:45 83 18 110/65 (80) 98 Room Air 09/11/17 15:30 85 18 112/68 (83) 98 Room Air 09/11/17 15:15 77 18 114/63 (80) 97 Room Air 09/11/17 15:00 86 18 116/75 (89) 99 Room Air 09/11/17 14:45 78 18 117/62 (80) 97 Room Air 09/11/17 14:30 98 18 112/68 (83) 99 Room Air 09/11/17 14:15 88 20 122/75 (91) 99 Room Air 09/11/17 14:00 86 20 129/60 (83) 100 Room Air 09/11/17 13:45 86 20 112/67 (82) 99 Room Air 09/11/17 13:30 85 18 108/66 (80) 97 Room Air 09/11/17 13:15 78 18 117/59 (78) 99 Room Air 09/11/17 13:00 85 20 111/66 (81) 99 Room Air 09/11/17 12:45 85 20 115/77 (90) 99 Room Air 09/11/17 12:30 85 18 116/63 (80) 99 Room Air 09/11/17 12:15 93 18 116/70 (85) 99 Room Air 09/11/17 12:00 91 18 125/65 (85) 97 Room Air 09/11/17 11:45 94 20 119/70 (86) 97 Room Air 09/11/17 11:30 88 18 109/56 (73) 98 Room Air 09/11/17 11:26 98 18 119/69 (86) 98 Room Air 09/11/17 11:21 83 18 109/63 (78) 97 Room Air 09/11/17 11:15 100 122/62 (82) 97 Room Air 09/11/17 11:15 96 18 120/63 (82) 97 Room Air 09/11/17 11:00 88 118/56 (76) Room Air 09/11/17 10:45 83 112/70 (84) Room Air 09/11/17 10:30 87 18 117/71 (86) Room Air 09/11/17 10:15 103 18 113/62 (79) Room Air 09/11/17 10:00 96.7 93 22 133/83 (100) Room Air Labs Laboratory Tests 09/11/17 09:52: White Blood Count 9.4, Red Blood Count 4.21L, Hemoglobin 10.2L, Hematocrit 30L, Mean Corpuscular Volume 72L, Mean Corpuscular Hemoglobin 24L, Mean Corpuscular Hemoglobin Concent 34, Red Cell Distribution Width 17.5H, Platelet Count 330, Mean Platelet Volume 10.3, Neutrophils (%) (Auto) 78H, Lymphocytes (%) (Auto) 15 , Monocytes (%) (Auto) 6, Eosinophils (%) (Auto) 1, Basophils (%) (Auto) 0, Neutrophils # (Auto) 7.3, Lymphocytes # (Auto) 1.4, Monocytes # (Auto) 0.6, Eosinophils # (Auto) 0.1, Basophils # (Auto) 0.0 09/12/17 05:40: White Blood Count 11.5H, Red Blood Count 3.86L, Hemoglobin 9.1L, Hematocrit 28L , Mean Corpuscular Volume 73L, Mean Corpuscular Hemoglobin 24L, Mean Corpuscular Hemoglobin Concent 33, Red Cell Distribution Width 17.8H, Platelet Count 271, Mean Platelet Volume 10.2, Neutrophils (%) (Auto) 79H, Lymphocytes (% ) (Auto) 14, Monocytes (%) (Auto) 6, Eosinophils (%) (Auto) 1, Basophils (%) ( Auto) 0, Neutrophils # (Auto) 9.0H, Lymphocytes # (Auto) 1.6, Monocytes # (Auto ) 0.7, Eosinophils # (Auto) 0.1, Basophils # (Auto) 0.0 FABRIZIO NAVAS DO Sep 12, 2017 9:02 am
[2017-09-12] MEDS ORDERED: ACHD5005 PO ×2 (09:04)
[2017-09-12] MEDS ORDERED: DOCU100C37 PO ×2 (09:04)
[2017-09-12] MEDS ORDERED: Benzocaine/Menthol TP ×2 (09:04)
[2017-09-12] MEDS ORDERED: FERR325T18 PO ×2 (09:04)
--- NOTE | 2017-09-12 09:05 | Discharge Inst-Women's Service ---
Discharge Inst-Women's Serv Depart Medication/Instructions New, Converted or Re-Newed RX: RX on Chart Consults/Follow Up Additional Follow Up: Yes Orders/Referrals Dr. Navas in 6 weeks Activity Activity: Activity as Tolerated Driving Instructions: No Driving for 1 Week NO SMOKING: NO SMOKING Nothing Inside Vagina: No Douching, No [place], No Tampons Diet Discharge Diet: No Restrictions Symptoms to Report to : Bleeding Excessive, Pain Increased, Fever Over 101 Degrees F, Vaginal Bleeding Increase, Questions/Concerns For Any Problems or Questions: Contact Your Physician Skin/Wound Care Bathing Instructions: Shower (or stiz baths x 2 weeks) FABRIZIO NAVAS DO Sep 12, 2017 9:05 am
[2017-09-12] MEDS ORDERED: TETANUS,DIPTH,PERTUSS P/F (BOOSTRIX) 0.5 ML VIAL IM ONE (09:47)
[2017-09-12] MEDS: DOCUSATE SODIUM 100 MG (COLACE) CAP PO SCH ×2 (09:53→20:24)
[2017-09-12] MEDS: PRENATAL VITAMIN 1 EA TAB PO SCH (09:53)
[2017-09-12] MEDS: FERROUS SULF 325 MG (IRON) TAB PO SCH (09:54)
[2017-09-12 12:00] VITALS: BP 127/79
[2017-09-12] MEDS: NAPROXEN 250 MG (NAPROSYN) TABLET PO PRN (13:59)
[2017-09-12 16:30] VITALS: BP 117/62
[2017-09-12 20:26] VITALS: BP 130/68
[2017-09-13 02:30] VITALS: BP 106/62
[2017-09-13 08:30] VITALS: BP 126/67
[2017-09-13] MEDS: FERROUS SULF 325 MG (IRON) TAB PO SCH (08:48)
[2017-09-13] MEDS: DOCUSATE SODIUM 100 MG (COLACE) CAP PO SCH (08:48)
[2017-09-13] MEDS: PRENATAL VITAMIN 1 EA TAB PO SCH (08:48)
[2017-09-13] MEDS: NAPROXEN 250 MG (NAPROSYN) TABLET PO PRN (08:51)
--- NOTE | 2017-09-13 09:57 | Postpartum Progress Note ---
Note Note Day # 2 Subjective: Patient is without complaints. Ambulating, voiding. Tolerating a regular diet without nausea or vomiting. Normal lochia. Pain is well controlled with oral pain medications. Objective: Vital Sign - Last 24 Hours 09/12/17 09/12/17 09/12/17 09/13/17 12:00 16:30 20:26 02:30 Temp 98.2 97.9 97.6 97.4 Pulse 78 83 81 82 Resp 18 18 20 20 B/P (MAP) 127/79 (95) 117/62 (80) 130/68 (88) 106/62 (77) Pulse Ox 100 98 97 97 O2 Delivery Room Air Room Air Room Air Room Air 09/13/17 08:30 Temp 97.9 Pulse 82 Resp 18 B/P (MAP) 126/67 (86) Pulse Ox 99 O2 Delivery Room Air Physical Exam: General - Alert and oriented, no apparent distress Abdomen - Soft, appropriately tender to palpation, non-distended, fundus firm at umbilicus Extremities - no edema, negative Tammi's bilaterally Assessment: PPD2 NVD Acute blood loss anemia Plan: Routine care. Encourage breast feeding. Encourage ambulation. Ferrous sulfate supplementation. Plan for discharge today Vitals - Labs Vital Signs - I&O Vital Signs Date Time Temp Pulse Resp B/P (MAP) Pulse Ox O2 Delivery O2 Flow Rate FiO2 09/13/17 08:30 97.9 82 18 126/67 (86) 99 Room Air 09/13/17 02:30 97.4 82 20 106/62 (77) 97 Room Air 09/12/17 20:26 97.6 81 20 130/68 (88) 97 Room Air 09/12/17 16:30 97.9 83 18 117/62 (80) 98 Room Air 09/12/17 12:00 98.2 78 18 127/79 (95) 100 Room Air FABRIZIO NAVAS DO Sep 13, 2017 09:57
[2017-09-13 10:35] VITALS: BP 126/67
[2017-09-13] MEDS ORDERED: MEPIVACAINE (CARBOCAINE) 2% 20 ML VIAL ONE (12:57)
== END 2017-09-13 10:35 | disposition home or self-care (01) | DRG 775 ==
LOC: WSo 09:23 → LDRP 09:24 → WSo 09:43 → LDRP 20:59
PROVIDERS: ADMIT Obstetrics & Gynecology; ATTEND Obstetrics & Gynecology
PROC: 10E0XZZ Delivery of Products of Conception, External Approach (ICD-10-PCS; principal; 2017-09-11)
PROC: 0W8NXZZ Division of Female Perineum, External Approach (ICD-10-PCS; 2017-09-11)
DX: O99.02 Anemia complicating childbirth (principal); D64.9 Anemia, unspecified; O90.81 Anemia of the puerperium; D62 Acute posthemorrhagic anemia; Z37.0 Single live birth; Z3A.38 38 weeks gestation of pregnancy; Z23 Encounter for immunization
CPT/HCPCS: 36415; 83033; 85025; 86850; 86900; 86901; 90715; 99212

== ENCOUNTER 2019-12-20 13:51 | Emergency (ER) | payer OTHER, MEDICAID ==
[~2019-12-20] VITALS: Ht 170.1 cm; Wt 78.9 kg
[~2019-12-20 13:51] MED LIST changes: +ACHD5005 PO; +Benzocaine/Menthol TP; +MULT-567 PO; -MULT1TAB69 PO
[2019-12-20] MEDS ORDERED: KETOROLAC 30 MG/ML VIAL IVP ONE (14:00)
[2019-12-20] MEDS ORDERED: fentaNYL INJECTION 100 MCG/2 ML AMP IVP ONE (14:00)
--- NOTE | 2019-12-20 14:04 | ED General ---
General Stated Complaint: L LEG NUMBNESS, PELVIC PAIN Source of Information: Patient Exam Limitations: No Limitations History of Present Illness Date Seen by Provider: Dec 20, 2019 Time Seen by Provider: 14:01 Initial Comments To ER by private vehicle with reports of left side of her body shaking, recurrent syncope, low back pain, left leg pain and numbness, pelvic pain. She is 6 days late on her menstrual period. States that she was taken by [facility] to [facility] last night where she was told that she had a blood clot and discharged home after a CT scan of her chest. She states she had recu rrent syncope last night. Timing/Duration: 1-2 Days Severity: Moderate Associated Systoms: Syncope Allergies and Home Medications Allergies Coded Allergies: measles, mumps, and rubella vaccine (Verified Allergy, Severe, HIVES, 09/12/17) Pt. reports that she was told by her mother that she has a severe allergy to the MMR vaccine. Penicillins (Verified Allergy, Mild, 12/07/15) amoxicillin (Verified Allergy, Mild, 12/07/15) cat dander (Verified Allergy, Mild, 12/07/15) erythromycin base (Verified Allergy, Mild, 12/07/15) ibuprofen (Verified Allergy, Mild, 12/07/15) mold (Verified Allergy, Mild, 12/07/15) peanut (Verified Allergy, Mild, 12/07/15) sesame seed (Verified Allergy, Mild, 12/07/15) shrimp (Verified Allergy, Mild, 12/07/15) Uncoded Allergies: MAPLE TREES (Allergy, Mild, 12/07/15) Home Medications Albuterol Sulfate 8.5 Gm Hfa.aer.ad, 1-2 PUFF IH QID, (Reported) Diphenhydramine HCl 25 Mg Capsule, 25 MG PO PRN, (Reported) Docusate Sodium 100 Mg Capsule, 100 MG PO BID PRN for CONSTIPATION-1ST LINE Prescribed by: FABRIZIO NAVAS on 09/12/17903 Ferrous Sulfate 325 Mg Tablet, 325 MG PO DAILY@0800 Prescribed by: FABRIZIO NAVAS on 09/12/17903 Hydrocodone Bit/Acetaminophen 1 Tab Tab, 1-2 TAB PO Q4H PRN for PAIN-MODERATE Prescribed by: FABRIZIO NAVAS on 09/12/17903 Loratadine 10 Mg Capsule, 10 MG PO DAILY, (Reported) Lorazepam 1 Mg Tablet, 1 MG PO Q8H PRN for ANXIETY Prescribed by: BOB CONTRERAS on 12/20/19 1603 Pediatric Multivitamin Comb#30 1 Each Tab.chew, 2 EACH PO DAILY, (Reported) [Benzocaine/Menthol] 56 ML AEROSOL, 0 ML TP UD PRN for PAIN- SEE INSTRUCTIONS EXTERNAL USE ONLY Prescribed by: FABRIZIO NAVAS on 09/12/17 0904 Patient Home Medication List Home Medication List Reviewed: Yes Review of Systems Review of Systems Constitutional: see HPI; No chills, No fever EENTM: see HPI; No blurred vision, No double vision Respiratory: no symptoms reported; No cough, No short of breath Cardiovascular: no symptoms reported Genitourinary: no symptoms reported Musculoskeletal: no symptoms reported Skin: no symptoms reported Psychiatric/Neurological: See HPI, Anxiety Hematologic/Lymphatic: No Symptoms Reported Immunological/Allergic: no symptoms reported Past Ihfqpmg-Jxredw-Hjhkko Hx Patient Social History Type Used: Cigarettes Former Smoker, Quit: Jan 20, 2017 2nd Hand Smoke Exposure: No Recent Foreign Travel: No Contact w/Someone Who Travel: No Recent Hopitalizations: No Immunizations Up To Date Tetanus Booster (TDap): Less than 5yrs PED Vaccines UTD: Yes Date of Pneumonia Vaccine: Nov 11, 2015 Date of Influenza Vaccine: Oct 09, 2016 Seasonal Allergies Seasonal Allergies: Yes Past Medical History Surgeries: Yes Abdominal, Appendectomy, Tonsillectomy Respiratory: Yes Asthma Cardiac: No Neurological: No Reproductive Disorders: Yes Female Reproductive Disorders: Endometriosis Sexually Transmitted Disease: No HIV/AIDS: No Genitourinary: No Bladder Infection, UTI-Chronic Gastrointestinal: No Musculoskeletal: No Chronic Back Pain Endocrine: No HEENT: No Cancer: No Psychosocial: No Anxiety, Bipolar, Depression Integumentary: No Eczema Blood Disorders: No Adverse Reaction/Blood Tranf: No Family Medical History Headache disorder 19 MOTHER Hypertension 19 MOTHER Thyroid disease 19 MOTHER Physical Exam Vital Signs Vital Signs - First Documented 12/20/19 13:55 Temp 36.7 Pulse 110 Resp 25 B/P (MAP) 128/82 (97) Pulse Ox 96 O2 Delivery Room Air Capillary Refill : Height, Weight, BMI Height: 5'7.00" Weight: 209lbs. 0.0oz. 94.337716in; 32.7 BMI Method:Stated General Appearance: No Apparent Distress, WD/WN, Anxious Eyes: Bilateral Eye Normal Inspection, Bilateral Eye PERRL, Bilateral Eye EOMI HEENT: PERRL/EOMI, TMs Normal Respiratory: Normal Breath Sounds, No Accessory Muscle Use, No Respiratory Distress Cardiovascular: Normal Peripheral Pulses, Tachycardia Gastrointestinal: Normal Bowel Sounds, Non Tender, Soft Extremity: Normal Capillary Refill, Normal Inspection Neurologic/Psychiatric: Alert Skin: Normal Color, Warm/Dry Progress/Results/Core Measures Suspected Sepsis SIRS Temperature: Pulse: Respiratory Rate: Laboratory Tests 12/20/19 14:05: White Blood Count 14.2H Blood Pressure / Mean: Laboratory Tests 12/20/19 14:05: Creatinine 0.75, Platelet Count 273, Total Bilirubin 0.5 Results/Orders Lab Results Laboratory Tests Test 12/20/19 14:05 12/20/19 14:15 Range/Units White Blood Count 14.2 H 4.3-11.0 10^3/uL Red Blood Count 5.25 H 3.80-5.11 10^6/uL Hemoglobin 13.9 11.5-16.0 g/dL Hematocrit 43 35-52 % Mean Corpuscular Volume 81 80-99 fL Mean Corpuscular Hemoglobin 27 25-34 pg Mean Corpuscular Hemoglobin Concent 33 32-36 g/dL Red Cell Distribution Width 13.2 10.0-14.5 % Platelet Count 273 130-400 10^3/uL Mean Platelet Volume 10.2 9.0-12.2 fL Immature Granulocyte % (Auto) 0 % Neutrophils (%) (Auto) 85 H 42-75 % Lymphocytes (%) (Auto) 11 L 12-44 % Monocytes (%) (Auto) 4 0-12 % Eosinophils (%) (Auto) 0 0-10 % Basophils (%) (Auto) 0 0-10 % Neutrophils # (Auto) 12.1 H 1.8-7.8 10^3/uL Lymphocytes # (Auto) 1.5 1.0-4.0 10^3/uL Monocytes # (Auto) 0.5 0.0-1.0 10^3/uL Eosinophils # (Auto) 0.0 0.0-0.3 10^3/uL Basophils # (Auto) 0.0 0.0-0.1 10^3/uL Immature Granulocyte # (Auto) 0.1 0.0-0.1 10^3/uL Neutrophils % (Manual) 77 % Lymphocytes % (Manual) 18 % Monocytes % (Manual) 5 % Blood Morphology Comment NORMAL D-Dimer 0.64 H 0.00-0.49 UG/ML Sodium Level 139 135-145 MMOL/L Potassium Level 3.6 3.6-5.0 MMOL/L Chloride Level 107 98-107 MMOL/L Carbon Dioxide Level 21 21-32 MMOL/L Anion Gap 11 5-14 MMOL/L Blood Urea Nitrogen 8 7-18 MG/DL Creatinine 0.75 0.60-1.30 MG/DL Estimat Glomerular Filtration Rate > 60 BUN/Creatinine Ratio 11 Glucose Level 122 H 70-105 MG/DL Calcium Level 9.7 8.5-10.1 MG/DL Corrected Calcium 8.5-10.1 MG/DL Magnesium Level 1.9 1.6-2.4 MG/DL Total Bilirubin 0.5 0.1-1.0 MG/DL Aspartate Amino Transf (AST/SGOT) 13 5-34 U/L Alanine Aminotransferase (ALT/SGPT) 13 0-55 U/L Alkaline Phosphatase 68 40-136 U/L Troponin I < 0.028 <0.028 NG/ML C-Reactive Protein High Sensitivity 0.14 0.00-0.50 MG/DL Total Protein 7.8 6.4-8.2 GM/DL Albumin 4.7 H 3.2-4.5 GM/DL Serum Test, Qualitative NEGATIVE NEGATIVE Urine Color YELLOW Urine Clarity CLEAR Urine pH 6.0 5-9 Urine Specific [place] 1.010 L 1.016-1.022 Urine Protein NEGATIVE NEGATIVE Urine Glucose (UA) NEGATIVE NEGATIVE Urine Ketones NEGATIVE NEGATIVE Urine Nitrite NEGATIVE NEGATIVE Urine Bilirubin NEGATIVE NEGATIVE Urine Urobilinogen 0.2 < = 1.0 MG/DL Urine Leukocyte Esterase NEGATIVE NEGATIVE Urine RBC (Auto) NEGATIVE NEGATIVE Urine RBC NONE /HPF Urine WBC 0-2 /HPF Urine Squamous Epithelial Cells 5-10 /HPF Urine Crystals NONE /LPF Urine Bacteria TRACE /HPF Urine Casts NONE /LPF Urine Mucus NEGATIVE /LPF Urine Culture Indicated NO Urine Opiates Screen NEGATIVE NEGATIVE Urine Oxycodone Screen NEGATIVE NEGATIVE Urine Methadone Screen NEGATIVE NEGATIVE Urine Propoxyphene Screen NEGATIVE NEGATIVE Urine Barbiturates Screen NEGATIVE NEGATIVE Ur Tricyclic Antidepressants Screen NEGATIVE NEGATIVE Urine Phencyclidine Screen NEGATIVE NEGATIVE Urine Amphetamines Screen NEGATIVE NEGATIVE Urine Methamphetamines Screen NEGATIVE NEGATIVE Urine Benzodiazepines Screen POSITIVE H NEGATIVE Urine Cocaine Screen NEGATIVE NEGATIVE Urine Cannabinoids Screen NEGATIVE NEGATIVE My Orders Orders - BOB CONTRERAS APRN Ua Culture If Indicated (12/20/19 13:59) Hcg,Qualitative Serum (12/20/19 13:59) Cbc With Automated Diff (12/20/19 13:59) Comprehensive Metabolic Panel (12/20/19 13:59) Hs C Reactive Protein (12/20/19 13:59) Ed Iv/Invasive Line Start (12/20/19 13:59) Ketorolac Injection (Toradol Injection) (12/20/19 14:00) Fentanyl Injection (Sublimaze Injection (12/20/19 14:00) Ct Head Wo (12/20/19 13:59) Fibrin Degradation Products (12/20/19 14:05) Ekg Tracing (12/20/19 14:05) Manual Differential (12/20/19 14:05) Magnesium (12/20/19 14:26) Troponin I (12/20/19 14:26) Lactated Ringers (Lr 1000 Ml Iv Solution (12/20/19 14:45) Us Non Ob Pelvis Comp/Transvag (12/20/19 14:34) Drug Screen Stat (Urine) (12/20/19 15:24) Medications Given in ED Current Medications Medications Dose Ordered Sig/Julio C Route Start Time Stop Time Status Last Admin Dose Admin Fentanyl Citrate 50 mcg ONCE ONCE IVP 12/20/19 14:00 12/20/19 14:02 DC 12/20/19 14:58 50 MCG Ketorolac Tromethamine 15 mg ONCE ONCE IVP 12/20/19 14:00 12/20/19 14:02 DC 12/20/19 14:52 15 MG Vital Signs/I&O 12/20/19 12/20/19 13:55 16:20 Temp 36.7 Pulse 110 78 Resp 25 20 B/P (MAP) 128/82 (97) 102/62 Pulse Ox 96 97 O2 Delivery Room Air Room Air Capillary Refill : Departure Communication (Admissions) 1520-She does have ventricular bigeminy on EKG. This was short-lived. States that she had a negative CAT scan of her chest yesterday after a blood test at [facility] showed that she had a blood clot she states. Her D-dimer is a bit elevated today but she has no chest pain or shortness of breath. I suspect this slight D-dimer elevation is related to her late menses endometriosis. She has no lower extremity swelling or redness. I spoke with Dr Jones, agrees with admit. He'll consult. Dr Allen will admit. [id number]-I spoke with the patient, offered her admission for observation but she declined, she would prefer to go home and see cardiology outpatient this week. With the exception of the EKG where she had a brief episode of bigeminy she has had only infrequent PVCs. She denies any palpitations or chest pain or shortness of breath. Impression Primary Impression: Syncope Additional Impressions: PVC (premature ventricular contraction) Sciatica Endometriosis Disposition: HOME, SELF-CARE Condition: Stable Departure-Patient Inst. Decision time for Depature: 15:54 Referrals: LUIS ABDULLAHI MD FACP FACC CCDS NO,LOCAL PHYSICIAN (PCP) Primary Care Physician Patient Instructions: Endometriosis, Sciatica, Syncope (Fainting) Add. Discharge Instructions: 1. You are scheduled to see Dr. Abdullahi on Thursday at 1:15 PM. Bring your insurance and identification cards with you. Return to ER in the meantime for any concerns. Scripts Lorazepam (Ativan) 1 Mg Tablet 1 MG PO Q8H PRN for ANXIETY for 7 Days, #10 TAB Prov: BOB CONTRERAS APRN 12/20/19 BOB CONTRERAS APRN Dec 20, 2019 14:04
[2019-12-20 14:14] LABS: BASOPHILS % (AUTO) 0 % (0-10); EOSINOPHILS % (AUTO) 0 % (0-10); HEMATOCRIT 43 % (35-52); HEMOGLOBIN 13.9 g/dL (11.5-16.0); LYMPHOCYTES # (AUTO) 1.5 10^3/uL (1.0-4.0); LYMPHOCYTES % (AUTO) 11 % (12-44); MEAN CORPUSCULAR HEMOGLOBIN 27 pg (25-34); MEAN CORPUSCULAR HGB CONC 33 g/dL (32-36); MEAN CORPUSCULAR VOLUME 81 fL (80-99); MEAN PLATELET VOLUME 10.2 fL (9.0-12.2); MONOCYTES # (AUTO) 0.5 10^3/uL (0.0-1.0); MONOCYTES % (AUTO) 4 % (0-12); NEUTROPHILS # (AUTO) 12.1 10^3/uL (1.8-7.8); NEUTROPHILS % (AUTO) 85 % (42-75); PLATELET COUNT 273 10^3/uL (130-400); WHITE BLOOD COUNT 14.2 10^3/uL (4.3-11.0)
[2019-12-20 14:24] LABS: LYMPHOCYTES % (MANUAL) 18 %; MONOCYTES % (MANUAL) 5 %; NEUTROPHILS % (MANUAL) 77 %; RBC MORPH NORMAL
[2019-12-20 14:24] LABS: BILIRUBIN,URINE NEGATIVE (NEGATIVE); CLARITY,URINE CLEAR; COLOR,URINE YELLOW; GLUCOSE, URINE (UA) NEGATIVE (NEGATIVE); KETONES,URINE NEGATIVE (NEGATIVE); LEUKOCYTE ESTERASE ,URINE NEGATIVE (NEGATIVE); NITRITE,URINE NEGATIVE (NEGATIVE); PROTEIN,URINE NEGATIVE (NEGATIVE)
[2019-12-20 14:32] LABS: ALANINE AMINOTRANSFERASE 13 U/L (0-55); ALBUMIN 4.7 GM/DL (3.2-4.5); ALKALINE PHOSPHATASE 68 U/L (40-136); BILIRUBIN,TOTAL 0.5 MG/DL (0.1-1.0); BUN/CREATININE RATIO 11; CALCIUM 9.7 MG/DL (8.5-10.1); CARBON DIOXIDE 21 MMOL/L (21-32); CHLORIDE 107 MMOL/L (98-107); CREATININE SERUM 0.75 MG/DL (0.60-1.30); GFR ESTIMATED > 60; GLUCOSE 122 MG/DL (70-105); POTASSIUM 3.6 MMOL/L (3.6-5.0); SODIUM 139 MMOL/L (135-145); TOTAL PROTEIN 7.8 GM/DL (6.4-8.2)
[2019-12-20 14:42] LABS: MAGNESIUM 1.9 MG/DL (1.6-2.4)
[2019-12-20 14:43] LABS: BACTERIA,URINE TRACE /HPF; WBC,URINE 0-2 /HPF
[2019-12-20] MEDS ORDERED: LACTATED RINGERS 1,000 ML IV SCH (14:45)
--- NOTE | 2019-12-20 15:03 | Diagnostic Imaging Report ---
PROCEDURE: CT head without contrast. TECHNIQUE: Multiple contiguous axial images were obtained through the brain without the use of intravenous contrast. Auto Exposure Controls were utilized during the CT exam to meet ALARA standards for radiation dose reduction. INDICATION: Left arm numbness and dizziness. COMPARISON: No prior studies are available for comparison. FINDINGS: Ventricles and sulci are within normal limits. No sulcal effacement or midline shift is identified. No acute intra-axial or extra-axial hemorrhage is detected. Cisterns are patent. Visualized paranasal sinuses are clear. IMPRESSION: No acute intracranial process is detected. Dictated by: Dictated on workstation # [id number]
[2019-12-20 16:01] LABS: AMPHETAMINE SCREEN, URINE NEGATIVE (NEGATIVE); BARBITURATE SCREEN URINE NEGATIVE (NEGATIVE); BENZODIAZEPINES SCREEN URINE POSITIVE (NEGATIVE); CANNABINOID SCREEN, URINE NEGATIVE (NEGATIVE); COCAINE SCREEN URINE NEGATIVE (NEGATIVE); METHADONE STAT NEGATIVE (NEGATIVE); METHAMPHETAMINE SCREEN URINE S NEGATIVE (NEGATIVE); OPIATE SCREEN URINE NEGATIVE (NEGATIVE); OXYCODONE STAT NEGATIVE (NEGATIVE); PROPOXYPHENE STAT NEGATIVE (NEGATIVE); TRICYCLIC ANTIDEPRESSANTS SCRE NEGATIVE (NEGATIVE)
[2019-12-20] MEDS ORDERED: LORA-405 PO (16:01)
--- NOTE | 2019-12-20 16:04 | Diagnostic Imaging Report ---
PROCEDURE: Pelvic comp/transvaginal sonogram. TECHNIQUE: Complete transabdominal and transvaginal pelvic ultrasound was performed. In addition, limited pelvic Doppler was performed. INDICATION: Pelvic pain. Uterus is anteverted measuring 8.2 x 3.4 x 5.1 cm. Endometrium is 6 mm in thickness. There is a myometrial region of heterogeneity on the right measuring 2.0 x 1.3 x 2.1 cm. A second region measures 1.9 x 1.6 x 1.4 cm. These may represent small fibroids. Right ovary measures 3.2 x 2.1 x 2.3 cm and the left ovary measures 1.8 x 0.9 x 1.4 cm. The ovaries contain follicles. There is blood flow to both ovaries. No adnexal mass or free fluid is detected. IMPRESSION: Probable fibroid uterus. The study is otherwise unremarkable. Dictated by: Dictated on workstation # [id number]
[2019-12-20 16:20] VITALS: BP 102/62
[2019-12-21] MEDS ORDERED: ONDA4TAB11 PO (22:34)
[2019-12-21] MEDS ORDERED: MECL-149 PO (22:34)
== END 2019-12-20 16:20 | disposition other institution (70) ==
LOC: EDUNIT# 13:51 → ER 13:53
DX: R55 Syncope and collapse (principal); I49.3 Ventricular premature depolarization; M54.30 Sciatica, unspecified side; N80.9 Endometriosis, unspecified; F41.9 Anxiety disorder, unspecified; J45.909 Unspecified asthma, uncomplicated; G89.29 Other chronic pain; M54.9 Dorsalgia, unspecified; Z82.49 Family history of ischemic heart disease and other diseases of the circulatory system; Z87.891 Personal history of nicotine dependence; Z88.0 Allergy status to penicillin; Z88.1 Allergy status to other antibiotic agents; Z88.6 Allergy status to analgesic agent; Z79.891 Long term (current) use of opiate analgesic
CPT/HCPCS: 36415; 70450; 76830; 76856; 80053; 80306; 81000; 83735; 84484; 84703; 85007; 85027; 85379; 86141; 93005

== ENCOUNTER 2019-12-21 21:10 | Emergency (ER) | payer OTHER, MEDICAID ==
[~2019-12-21] VITALS: Ht 170 cm; Wt 85.0 kg
[~2019-12-21 21:10] MED LIST changes: +LORA-405 PO
[2019-12-21] MEDS ORDERED: LACTATED RINGERS 1,000 ML IV ONE (21:23)
[2019-12-21] MEDS ORDERED: ONDANSETRON 4 MG/2 ML (SDV) Z0FRAN IVP ONE (21:30)
--- NOTE | 2019-12-21 21:30 | NUR ---
Pt here with c/o dizziness upon standing, "uterus" pain (pt states she has been diagnosed with fibroids and it causes her pain), and chest pain. Pt states she was seen here yesterday for same complaint. Also states she was seen at [place] [facility] for same complaints the day before for same complaints. Pt to monitor; IV and labs drawn; ECG obtained; ERP at bedside for eval.
[2019-12-21 21:31] LABS: BASOPHILS % (AUTO) 0 % (0-10); EOSINOPHILS % (AUTO) 0 % (0-10); HEMATOCRIT 39 % (35-52); HEMOGLOBIN 12.8 g/dL (11.5-16.0); LYMPHOCYTES # (AUTO) 1.1 10^3/uL (1.0-4.0); LYMPHOCYTES % (AUTO) 8 % (12-44); MEAN CORPUSCULAR HEMOGLOBIN 27 pg (25-34); MEAN CORPUSCULAR HGB CONC 33 g/dL (32-36); MEAN CORPUSCULAR VOLUME 82 fL (80-99); MEAN PLATELET VOLUME 10.6 fL (9.0-12.2); MONOCYTES # (AUTO) 0.4 10^3/uL (0.0-1.0); MONOCYTES % (AUTO) 3 % (0-12); NEUTROPHILS # (AUTO) 12.2 10^3/uL (1.8-7.8); NEUTROPHILS % (AUTO) 89 % (42-75); PLATELET COUNT 260 10^3/uL (130-400); WHITE BLOOD COUNT 13.7 10^3/uL (4.3-11.0)
--- NOTE | 2019-12-21 21:33 | ED General ---
General Stated Complaint: CHEST PAIN/DIZZINESS/PELVIC PAIN Source of Information: Patient History of Present Illness Date Seen by Provider: Dec 21, 2019 Time Seen by Provider: 21:15 Initial Comments PT ARRIVES VIA POV FROM HOME IN [place]--STATES HER DROVE HER PT WITH A MULTITUDE OF COMPLAINTS --ALL ONGOING "FOR OVER 3 DAYS" PT STATES SHE WAS TAKEN BY AMBULANCE TO [facility] 2 NIGHTS AGO FOR THESE PROBLEMS, AND THEN CAME HERE LAST NIGHT FOR THESE PROBLEMS--WORK UP HERE ESSENTIALLY NORMAL EXCEPT FOR BRIEF EPISODES OF BIGEMINY. PT REFUSED ADMIT LAST NIGHT. APPOINTMENT WAS MADE FOR HER TO SEE DR. QUINONES ON THURSDAY. GIVEN RX FOR LORAZEPAM #10. ATIVAN GIVEN IN ER LAST NIGHT HELPED SYMPTOMS. PT STATES "I KEEP PASSING OUT" STATES "I'M DIZZY AND I CAN'T GET OUT OF BED" STATES ABOUT 3 HOURS AGO, SHE GOT OUT OF BED AND WALKED TO THE BATHROOM AND WAS A LITTLE DIZZY, THEN SHE WAS WALKING BACK TO BED SHE "PASSED OUT FOR A SECOND" AND HER CAUGHT HER. STATES SHE GOT VERY DIZZY AND EVERY THING WENT BLACK FOR A SECOND AND SHE STARTED TO FALL, WHEN HER CAUGHT HER. C/O "REALLY BAD CHEST PAINS" C/O "REALLY BAD PELVIC PAIN"--IS CHRONIC PROBLEM, STATES SHE HAS "STAGE 3 ENDOMETRIOSIS". LMP 11/16/19, NO CONTROL OR ANY TREATMENT FOR ENDOMETRIOSIS STATES "MY WHOLE BODY JUST STARTS SHAKING, ESPECIALLY MY LEFT HAND" C/O NAUSEA, NO VOMITING. NO DIARRHEA OR CONSTIPATION. HAD NORMAL BM'S TODAY--STATES SHE HAS IBS AND HAS SEVERAL STOOLS A DAY. DOES NOT TAKE ANY MEDICATIONS FOR IBS. 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 HAS NOT TAKEN ANYTHING FOR SYMPTOMS AT ANY TIME HAS BEEN ABLE TO DRINK WATER WITHOUT PROBLEMS, HAS EATEN A LITTLE, BUT DOES NOT HAVE AN APPETITE. PT STATES SHE SMOKES 1/2 PPD, BUT HAS NOT SMOKED FOR THE LAST 3 DAYS STATES SHE "WAS A REALLY HEAVY DRINKER" CLAIMS NO ALCOHOL FOR A MONTH. UNABLE TO STATE HOW MUCH SHE DRINKS, ONLY STATES "ENOUGH SO I DON'T REMEMBER" TO THE POINT OF PASSING OUT DENIES DRUG USE PCP: [facility] IN [place]. 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 reports that she was told by her mother that she has a severe allergy to the MMR vaccine. Penicillins (Verified Allergy, Mild, 12/07/15) amoxicillin (Verified Allergy, Mild, 12/07/15) cat dander (Verified Allergy, Mild, 12/07/15) erythromycin base (Verified Allergy, Mild, 12/07/15) ibuprofen (Verified Allergy, Mild, 12/07/15) mold (Verified Allergy, Mild, 12/07/15) peanut (Verified Allergy, Mild, 12/07/15) sesame seed (Verified Allergy, Mild, 12/07/15) shrimp (Verified Allergy, Mild, 12/07/15) Uncoded Allergies: MAPLE TREES (Allergy, Mild, 12/07/15) Home Medications Albuterol Sulfate 8.5 Gm Hfa.aer.ad, 1-2 PUFF IH QID, (Reported) Diphenhydramine HCl 25 Mg Capsule, 25 MG PO PRN, (Reported) Docusate Sodium 100 Mg Capsule, 100 MG PO BID PRN for CONSTIPATION-1ST LINE Prescribed by: FABRIZIO NAVAS on 09/12/17903 Ferrous Sulfate 325 Mg Tablet, 325 MG PO DAILY@0800 Prescribed by: FABRIZIO NAVAS on 09/12/17903 Hydrocodone Bit/Acetaminophen 1 Tab Tab, 1-2 TAB PO Q4H PRN for PAIN-MODERATE Prescribed by: FABRIZIO NAVAS on 09/12/17903 Loratadine 10 Mg Capsule, 10 MG PO DAILY, (Reported) Lorazepam 1 Mg Tablet, 1 MG PO Q8H PRN for ANXIETY Prescribed by: BOB CONTRERAS on 12/20/19 1603 Meclizine HCl 25 Mg Tablet, 50 MG PO Q6 PRN for DIZZINESS Prescribed by: LAURIE TRIPATHI on 12/21/192233 Ondansetron 4 Mg Tab.rapdis, 4 MG PO Q4H Prescribed by: LAURIE TRIPATHI on 12/21/192233 Pediatric Multivitamin Comb#30 1 Each Tab.chew, 2 EACH PO DAILY, (Reported) [Benzocaine/Menthol] 56 ML AEROSOL, 0 ML TP UD PRN for PAIN- SEE INSTRUCTIONS EXTERNAL USE ONLY Prescribed by: FABRIZIO NAVAS on 09/12/17 0904 Patient Home Medication List Home Medication List Reviewed: Yes Review of Systems Review of Systems Constitutional: see HPI, dizziness; No fever EENTM: see HPI, blurred vision Respiratory: see HPI; No cough, No short of breath Cardiovascular: see HPI, chest pain; No edema; palpitations, syncope Gastrointestinal: see HPI; No abdominal pain, No constipation, No diarrhea; nausea; No vomiting Genitourinary: no symptoms reported : No LMP: Nov 16, 2019 Musculoskeletal: back pain Skin: no symptoms reported Psychiatric/Neurological: See HPI, Anxiety, Headache, Tremors Hematologic/Lymphatic: No Symptoms Reported Immunological/Allergic: no symptoms reported (HAS ENVIRONMENTAL ALLERGIES, AND OCCASIONAL NASAL SYMPTOMS RELATED TO THAT BUT NOT NOW. ) Past Eebgiqe-Ebxaei-Qpaxqe Hx Patient Social History Alcohol Use: Regular Use (S) Recreational Drug Use: No (ENIES) Smoking Status: Current Everyday Smoker Type Used: Cigarettes 2nd Hand Smoke Exposure: No Recent Foreign Travel: No Contact w/Someone Who Travel: No Recent Hopitalizations: No Immunizations Up To Date Tetanus Booster (TDap): Less than 5yrs PED Vaccines UTD: Yes Date of Pneumonia Vaccine: Nov 11, 2015 Date of Influenza Vaccine: Oct 09, 2016 Seasonal Allergies Seasonal Allergies: Yes Past Medical History Surgeries: Yes (DX LAPAROSCOY FOR ENDOMETRIOSIS; COLONOSCOPY) Abdominal, Appendectomy, Tonsillectomy Respiratory: Yes Asthma Cardiac: No Neurological: No Reproductive Disorders: Yes (CHRONIC PELVIC PAIN) Female Reproductive Disorders: Menstrual Problems, Endometriosis Sexually Transmitted Disease: No HIV/AIDS: No Genitourinary: Yes Bladder Infection, UTI-Chronic Gastrointestinal: Yes Irritable Bowel Musculoskeletal: Yes Chronic Back Pain Endocrine: No HEENT: Yes (S/P TONSILLECTOMY) Tonsilitis Cancer: No Psychosocial: Yes Anxiety, Bipolar, Depression Integumentary: Yes Eczema Blood Disorders: No Adverse Reaction/Blood Tranf: No Family Medical History Headache disorder 19 MOTHER Hypertension 19 MOTHER Thyroid disease 19 MOTHER SOCIAL HISTORY: -ETOH--HEAVY USE, CANNOT STATE HOW MUCH-SAYS "ALOT--ENOUGH TO NOT REMEMBER ANYTHING" TO POINT OF PASSING OUT -DRUGS--DENIES USE -SMOKES 1/2 PPD Physical Exam Vital Signs Vital Signs - First Documented 12/21/19 21:15 Temp 36.6 Pulse 77 Resp 18 B/P (MAP) 123/96 (105) Pulse Ox 96 O2 Delivery Room Air Capillary Refill : Height, Weight, BMI Height: 5'7.00" Weight: 209lbs. 0.0oz. 94.460980co; 27.00 BMI Method:Stated General Appearance: No Apparent Distress, WD/WN, Other (AMBULATES IN ON HER OWN WITHOUT ANY DIFFICULTY. GAIT STEADY. DOES NOT APPEAR TO BE IN ANY DISCMFORT OR DISTRESS. ) HEENT: PERRL/EOMI, TMs Normal, Normal ENT Inspection, Pharynx Normal Neck: Full Range of Motion, Normal Inspection, Non Tender, Supple; No Carotid Bruit, No JVD Respiratory: Normal Breath Sounds, No Accessory Muscle Use, No Respiratory Distress, Other (MARKED MID AND LEFT CHEST TENDERNESS) Cardiovascular: Regular Rate, Rhythm, No Edema, No Gallop, No JVD, No Murmur, Normal Peripheral Pulses Gastrointestinal: Normal Bowel Sounds, No Organomegaly, No Pulsatile Mass, Soft, Tenderness (SUPRAPUBIC TENDERNESS. 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 NO ARM OR LEG DRIFT. AMBULATES WITHOUT DIFFICULTY) Reflexes: 2+ Bicep (R), 2+ Bicep (L), 2+ Knee (R), 2+ Knee (L) Skin: Normal Color, Warm/Dry; No Rash; Tattoos/Piercings (MULTIPLE TATTOOS) Progress/Results/Core Measures Suspected Sepsis SIRS Temperature: Pulse: Respiratory Rate: Laboratory Tests 12/21/19 21:24: White Blood Count 13.7H Blood Pressure / Mean: Laboratory Tests 12/21/19 21:24: Creatinine 0.67, INR Comment 1.0, Platelet Count 260, Total Bilirubin 0.3 Results/Orders Lab Results Laboratory Tests Test 12/21/19 21:24 12/21/19 21:30 Range/Units White Blood Count 13.7 H 4.3-11.0 10^3/uL Red Blood Count 4.77 3.80-5.11 10^6/uL Hemoglobin 12.8 11.5-16.0 g/dL Hematocrit 39 35-52 % Mean Corpuscular Volume 82 80-99 fL Mean Corpuscular Hemoglobin 27 25-34 pg Mean Corpuscular Hemoglobin Concent 33 32-36 g/dL Red Cell Distribution Width 13.4 10.0-14.5 % Platelet Count 260 130-400 10^3/uL Mean Platelet Volume 10.6 9.0-12.2 fL Immature Granulocyte % (Auto) 0 % Neutrophils (%) (Auto) 89 H 42-75 % Lymphocytes (%) (Auto) 8 L 12-44 % Monocytes (%) (Auto) 3 0-12 % Eosinophils (%) (Auto) 0 0-10 % Basophils (%) (Auto) 0 0-10 % Neutrophils # (Auto) 12.2 H 1.8-7.8 10^3/uL Lymphocytes # (Auto) 1.1 1.0-4.0 10^3/uL Monocytes # (Auto) 0.4 0.0-1.0 10^3/uL Eosinophils # (Auto) 0.0 0.0-0.3 10^3/uL Basophils # (Auto) 0.0 0.0-0.1 10^3/uL Immature Granulocyte # (Auto) 0.1 0.0-0.1 10^3/uL Neutrophils % (Manual) 84 % Lymphocytes % (Manual) 10 % Monocytes % (Manual) 2 % Eosinophils % (Manual) 0 % Basophils % (Manual) 0 % Band Neutrophils 0 % Reactive Lymphocytes 4 % Blood Morphology Comment NORMAL Prothrombin Time 13.1 12.2-14.7 SEC INR Comment 1.0 0.8-1.4 Activated Partial Thromboplast Time 30 24-35 SEC Sodium Level 142 135-145 MMOL/L Potassium Level 3.8 3.6-5.0 MMOL/L Chloride Level 109 H 98-107 MMOL/L Carbon Dioxide Level 20 L 21-32 MMOL/L Anion Gap 13 5-14 MMOL/L Blood Urea Nitrogen 9 7-18 MG/DL Creatinine 0.67 0.60-1.30 MG/DL Estimat Glomerular Filtration Rate > 60 BUN/Creatinine Ratio 13 Glucose Level 129 H 70-105 MG/DL Calcium Level 9.0 8.5-10.1 MG/DL Corrected Calcium 8.8 8.5-10.1 MG/DL Magnesium Level 2.0 1.6-2.4 MG/DL Total Bilirubin 0.3 0.1-1.0 MG/DL Aspartate Amino Transf (AST/SGOT) 11 5-34 U/L Alanine Aminotransferase (ALT/SGPT) 11 0-55 U/L Alkaline Phosphatase 65 40-136 U/L Troponin I < 0.028 <0.028 NG/ML Total Protein 7.0 6.4-8.2 GM/DL Albumin 4.3 3.2-4.5 GM/DL Amylase Level 51 25-125 U/L Lipase 31 8-78 U/L TSH [place] Testing 0.43 0.35-4.94 UIU/ML Serum Test, Qualitative NEGATIVE NEGATIVE Salicylates Level < 5.0 L 5.0-20.0 MG/DL Acetaminophen Level < 10 L 10-30 UG/ML Serum Alcohol < 10 <10 MG/DL Urine Color YELLOW Urine Clarity CLEAR Urine pH 8.0 5-9 Urine Specific [place] 1.015 L 1.016-1.022 Urine Protein NEGATIVE NEGATIVE Urine Glucose (UA) NEGATIVE NEGATIVE Urine Ketones NEGATIVE NEGATIVE Urine Nitrite NEGATIVE NEGATIVE Urine Bilirubin NEGATIVE NEGATIVE Urine Urobilinogen 0.2 < = 1.0 MG/DL Urine Leukocyte Esterase TRACE H NEGATIVE Urine RBC (Auto) NEGATIVE NEGATIVE Urine RBC NONE /HPF Urine WBC RARE /HPF Urine Squamous Epithelial Cells 2-5 /HPF Urine Crystals NONE /LPF Urine Bacteria TRACE /HPF Urine Casts NONE /LPF Urine Mucus NEGATIVE /LPF Urine Culture Indicated NO Urine Opiates Screen NEGATIVE NEGATIVE Urine Oxycodone Screen NEGATIVE NEGATIVE Urine Methadone Screen NEGATIVE NEGATIVE Urine Propoxyphene Screen NEGATIVE NEGATIVE Urine Barbiturates Screen NEGATIVE NEGATIVE Ur Tricyclic Antidepressants Screen NEGATIVE NEGATIVE Urine Phencyclidine Screen NEGATIVE NEGATIVE Urine Amphetamines Screen NEGATIVE NEGATIVE Urine Methamphetamines Screen NEGATIVE NEGATIVE Urine Benzodiazepines Screen POSITIVE H NEGATIVE Urine Cocaine Screen NEGATIVE NEGATIVE Urine Cannabinoids Screen NEGATIVE NEGATIVE My Orders Orders - LAURIE TRIPATHI DO Ed Iv/Invasive Line Start (12/21/19:23) Ekg Tracing (12/21/19 21:23) Monitor-Rhythm Ecg Trace Only (12/21/19:23) Acetaminophen (12/21/19:23) Alcohol (12/21/19:23) Amylase (12/21/19:) Cbc With Automated Diff (12/21/19:23) Comprehensive Metabolic Panel (12/21/19:23) Drug Screen Stat (Urine) (12/21/19:) Hcg,Qualitative Serum (12/21/19:) Lipase (12/21/19:) Magnesium (12/21/19:) Protime With Inr (12/21/19:) Partial Thromboplastin Time (12/21/19:) Thyroid Analyzer (12/21/19:23) Ua Culture If Indicated (12/21/19 21:23) Troponin I (12/21/19 21:23) Ed Iv/Invasive Line Start (12/21/19 21:23) Lactated Ringers (Lr 1000 Ml Iv Solution (12/21/19 21:23) Ondansetron Injection (Zofran Injectio (12/21/19 21:30) Manual Differential (12/21/19 21:24) Orthostatic Vital Signs (Adult (12/21/19 21:44) Ct Head Wo (12/21/19 21:53) Salicylate (12/21/19 21:54) Ct Abdomen/Pelvis W (12/21/19 22:23) Iohexol Injection (Omnipaque 350 Mg/Ml 1 (12/21/19 23:15) Received Contrast (Hold Metformin- Contr (12/21/19 23:15) Sodium Chloride Flush (Catheter Flush Sy (12/21/19 23:15) Ns (Ivpb) (Sodium Chloride 0.9% Ivpb Bag (12/21/19 23:15) Medications Given in ED Current Medications Medications Dose Ordered Sig/Julio C Route Start Time Stop Time Status Last Admin Dose Admin Iohexol 100 ml ONCE ONCE IV 12/21/19 23:15 12/21/19 23:16 12/21/19 23:11 100 ML Lactated Ringer's 1,000 ml @ 0 mls/hr Q0M ONCE IV 12/21/19 21:23 12/21/19 21:25 DC 12/21/19 21:30 1,000 MLS/HR Ondansetron HCl 4 mg ONCE ONCE IVP 12/21/19 21:30 12/21/19 21:31 DC 12/21/19 21:30 4 MG Sodium Chloride 10 ml NEEDED PRN IV 12/21/19 23:15 12/21/19 23:11 10 ML Sodium Chloride 100 ml ONCE ONCE IV 12/21/19 23:15 12/21/19 23:16 12/21/19 23:11 80 ML Vital Signs/I&O 12/21/19 12/21/19 21:15 21:59 Temp 36.6 Pulse 77 60 65 68 Resp 18 B/P (MAP) 123/96 (105) 122/63 (82) 104/53 (70) 105/63 (77) Pulse Ox 96 O2 Delivery Room Air Capillary Refill : Progress Note : Progress Note GIVEN IV FLUIDS AND ZOFRAN. VERY RARE PVC ON TELEMETRY. NO BIGEMINY OR OTHER ARRHYTHMIAS ORTHOSTATICS--LYING BP 122/63, PULSE 60; SITTING BP 104/53, PULSE 65; STANDING BP 105/63, PULSE 68 ON QUESTIONING PT ABOUT HER RECENT POSITIVE COVID TEST--SHE CLAIMS SHE "DIDN'T KNOW" --[facility] VERIFIED THAT THEY CONTACTED HER ON 12/15/19. PT ALSO CLAIMS THAT SHE HAS NEVER BEEN CONTACTED BY THE HEALTH DEPARTMENT ABOUT THIS TEST RESULT. INITIALLY REPORTED THAT SHE HAS CONTINUED TO WORK AT THE LONG TERM, AFTER THIS TEST, AND HAS NOT BEEN QUARANTINING, NOR HAS ANYONE IN HER HOUSEHOLD, AND HER DAUGHTER HAD HER TONSILS REMOVED 12/09/19 AT [employer]. ALSO STATES THAT HER CHILDREN HAVE ALREADY GONE BACK TO THEIR DAD'S HOUSE. SHE THEN CHANGES HER STORY AND STATES THAT SHE HAS NOT BEEN TO WORK SINCE HER DAUGHTER HAD HER TONSILS OUT, BUT WAS SUPPOSED TO GO BACK TO WORK THIS WEEK, BUT HAS NOT BECAUSE OF ALL OF HER CURRENT SYMPTOMS THIS WEEK. ADDITIONALLY, SHE DID NOT INFORM ANY OF THE ER STAFF HERE LAST NIGHT OF THE POSITIVE COVID TEST. EMPHATICALLY STRESSED THE IMPORTANCE OF QUARANTINING ALL HOUSEHOLD MEMBERS AND CLOSE CONTACTS, INFORMING HER EMPLOYER, HER CHILDREN'S FATHER, HER 'S EMPLOYER, SCHOOL/DAYCARE, ETC. ECG Initial ECG Impression Date: Dec 21, 2019 Initial ECG Impression Time: 21:24 Initial ECG Rate: 70 Initial ECG Rhythm: Normal Sinus Diagnostic Imaging Comments CT HEAD--NO ACUTE PROCESS, PER [facility] VIA FAX AT [id number] CT CHEST ANGIOGRAM/ ABDOMEN AND PELVIS--NO ACUTE PROCESS, PER [facility] VIA FAX AT [id number] Reviewed: Reviewed by Me Departure Communication (Admissions) 2219--CALLED [facility] IN [place]. VERIFIED PT WAS THERE 2 NIGHTS AGO, HAD ESSENTIALLY NORMAL LAB, NORMAL CXR AND NORMAL CT CHEST ANGIOGRAM. WAS ALSO ADVISED BY THEM THAT PT HAD A POSITIVE COVID-19 TEST ON 12/12/19 THAT WAS REPORTED TO THE PATIENT ON 12/15/19. Impression Primary Impression: REPORTED SYNCOPAL EPISODES Additional Impressions: DEHYDRATION/VOLUME DEPLETION EXACERBATION OF CHRONIC PELVIC PAIN Chest wall pain Anxiety POSITIVE COVID 19 TEST AT OUTSIDE FACILTY. Disposition: 01 HOME, SELF-CARE Condition: Stable Departure-Patient Inst. Referrals: NO,LOCAL PHYSICIAN (PCP/Family) Primary Care Physician Patient Instructions: Anxiety, Adult (DC), Chronic Pelvic Pain in Women, Coronavirus Disease 2019 (COVID-19) (DC), Costochondritis (DC) Add. Discharge Instructions: QUARANTINE YOURSELF AND ALL HOUSEHOLD MEMBERS AND CLOSE CONTACTS FOR ANOTHER 5 DAYS OR UNTIL CLEARED BY THE [facility] DEPARTMENT--NO ONE ENTERS OR LEAVES YOUR HOUSEHOLD FOR AT LEAST 5 DAYS. INCREASE YOUR CLEAR LIQUIDS--WATER, BROTH, JELLO, GATORADE BRATS DIET --BANANAS, RICE, APPLESAUCE, TOAST, SALTINES NO ALCOHOL FOLLOW UP WITH [facility] IN A WEEK IF SYMPTOMS PERSIST. Scripts Ondansetron (Ondansetron Odt) 4 Mg Tab.rapdis 4 MG PO Q4H for Nausea/Vomiting, #10 TAB Prov: LAURIE TRIPATHI DO 12/21/19 Meclizine HCl (Meclizine HCl) 25 Mg Tablet 50 MG PO Q6 PRN for DIZZINESS, #15 TAB Prov: LAURIE TRIPATHI DO 12/21/19 Work/School Note: Family Work Note, Work Release Form Date Seen in the Emergency Department: Dec 21, 2019 Return to Work: Dec 26, 2019 LAURIE TRIPATHI DO Dec 21, 2019 21:33
[2019-12-21 21:39] LABS: BILIRUBIN,URINE NEGATIVE (NEGATIVE); CLARITY,URINE CLEAR; COLOR,URINE YELLOW; GLUCOSE, URINE (UA) NEGATIVE (NEGATIVE); KETONES,URINE NEGATIVE (NEGATIVE); LEUKOCYTE ESTERASE ,URINE TRACE (NEGATIVE); NITRITE,URINE NEGATIVE (NEGATIVE); PROTEIN,URINE NEGATIVE (NEGATIVE)
[2019-12-21 21:43] LABS: ALBUMIN 4.3 GM/DL (3.2-4.5); CHLORIDE 109 MMOL/L (98-107); POTASSIUM 3.8 MMOL/L (3.6-5.0); PROTHROMBIN TIME PATIENT 13.1 SEC (12.2-14.7); SODIUM 142 MMOL/L (135-145)
[2019-12-21 21:45] LABS: AMYLASE 51 U/L (25-125); BAND NEUTROPHILS 0 %; BASOPHILS % (MANUAL) 0 %; EOSINOPHILS % (MANUAL) 0 %; LYMPHOCYTES % (MANUAL) 10 %; MONOCYTES % (MANUAL) 2 %; NEUTROPHILS % (MANUAL) 84 %; RBC MORPH NORMAL; REACTIVE LYMPHOCYTES 4 %
[2019-12-21 21:46] LABS: GLUCOSE 129 MG/DL (70-105)
[2019-12-21 21:47] LABS: BACTERIA,URINE TRACE /HPF; WBC,URINE RARE /HPF
[2019-12-21 21:47] LABS: CARBON DIOXIDE 20 MMOL/L (21-32)
[2019-12-21 21:48] LABS: BILIRUBIN,TOTAL 0.3 MG/DL (0.1-1.0)
[2019-12-21 21:49] LABS: ALKALINE PHOSPHATASE 65 U/L (40-136)
[2019-12-21 21:49] LABS: AMPHETAMINE SCREEN, URINE NEGATIVE (NEGATIVE); BARBITURATE SCREEN URINE NEGATIVE (NEGATIVE); BENZODIAZEPINES SCREEN URINE POSITIVE (NEGATIVE); CANNABINOID SCREEN, URINE NEGATIVE (NEGATIVE); COCAINE SCREEN URINE NEGATIVE (NEGATIVE); METHADONE STAT NEGATIVE (NEGATIVE); METHAMPHETAMINE SCREEN URINE S NEGATIVE (NEGATIVE); OPIATE SCREEN URINE NEGATIVE (NEGATIVE); OXYCODONE STAT NEGATIVE (NEGATIVE); PROPOXYPHENE STAT NEGATIVE (NEGATIVE); TRICYCLIC ANTIDEPRESSANTS SCRE NEGATIVE (NEGATIVE)
[2019-12-21 21:50] LABS: CREATININE SERUM 0.67 MG/DL (0.60-1.30); GFR ESTIMATED > 60
[2019-12-21 21:51] LABS: BUN/CREATININE RATIO 13
[2019-12-21 21:52] LABS: ALANINE AMINOTRANSFERASE 11 U/L (0-55)
[2019-12-21 21:54] LABS: LIPASE 31 U/L (8-78)
[2019-12-21 21:59] VITALS: BP_SYST 104; BP_SYST 105; BP_SYST 122; BP_DIAS 53; BP_DIAS 63
[2019-12-21 22:06] LABS: ACETAMINOPHEN < 10 UG/ML (10-30)
[2019-12-21 22:14] LABS: TSH (THYROID ANALYZER) 0.43 UIU/ML (0.35-4.94)
--- NOTE | 2019-12-21 22:20 | NUR ---
Pt to CT by w/c.
[2019-12-21] MEDS ORDERED: MECL-149 PO (22:34)
[2019-12-21] MEDS ORDERED: ONDA4TAB11 PO (22:34)
--- NOTE | 2019-12-21 22:51 | NUR ---
Pt placed in isolation after Dr. Barton called [facility] and was advised that pt tested Covid positive on Dec.11. Pt denied exposure or s/s on questioning with triage.
[2019-12-21] MEDS ORDERED: CATHETER FLUSH 10 ML SYR IV PRN (23:15)
[2019-12-21] MEDS ORDERED: IOHEXOL 350 MG/ML 100 ML (OMNIPAQUE 350) VIAL IV ONE (23:15)
[2019-12-21] MEDS ORDERED: NS 100 ML (IVPB) BAG IV ONE (23:15)
[2019-12-21] MEDS ORDERED: HOLD METFORMIN - RECEIVED CONTRAST 20 ML VIAL IV SCH (23:15)
[2019-12-21 23:29] VITALS: BP 117/77
--- NOTE | 2019-12-22 05:17 | Diagnostic Imaging Report ---
PROCEDURE: CT head without contrast. TECHNIQUE: Multiple contiguous axial images were obtained through the brain without the use of intravenous contrast. Auto Exposure Controls were utilized during the CT exam to meet ALARA standards for radiation dose reduction. INDICATION: Headache and dizziness Comparison is made to study of one day earlier. CT HEAD: CT images of the head were obtained. FINDINGS: Ventricles and sulci are within normal limits for size. There is no intracranial hemorrhage identified. There is no abnormal mass effect or shift of midline structures. IMPRESSION: Unremarkable CT of the head. Dictated by: Dictated on workstation # [id number]
--- NOTE | 2019-12-22 05:29 | Diagnostic Imaging Report ---
PROCEDURE: CT abdomen and pelvis with contrast. TECHNIQUE: Multiple contiguous axial images were obtained through the abdomen and pelvis after administration of intravenous contrast. Auto Exposure Controls were utilized during the CT exam to meet ALARA standards for radiation dose reduction. All CT scans use one or more of the following dose optimizing techniques: automated exposure control, MA and/or KvP adjustment based on patient size and exam type or iterative reconstruction. INDICATION: Abdominal and pelvic pain No focal hepatic or splenic abnormality is identified. No gallbladder, pancreatic or adrenal gland abnormality is seen. Kidneys have a normal appearance. There is no evidence of bowel obstruction. No free fluid is seen within the abdomen or pelvis. There is moderate amount of stool in the right colon. There is no evidence of focal inflammation or organized fluid collection. No bladder abnormality is identified. There may be a partially collapsed cyst in the right ovary. IMPRESSION: No acute abnormalities identified. Dictated by: Dictated on workstation # [id number]
--- NOTE | 2019-12-22 09:46 | NUR ---
[facility] and that she reported to continue to work at [employer]. [phone]
== END 2019-12-21 23:25 | disposition home or self-care (01) ==
LOC: EDUNIT# 21:10 → ER 21:12
DX: R55 Syncope and collapse (principal); E86.0 Dehydration; R10.2 Pelvic and perineal pain; R07.89 Other chest pain; F41.9 Anxiety disorder, unspecified; M54.9 Dorsalgia, unspecified; G89.29 Other chronic pain; J45.909 Unspecified asthma, uncomplicated; F17.210 Nicotine dependence, cigarettes, uncomplicated; Z82.49 Family history of ischemic heart disease and other diseases of the circulatory system; Z79.891 Long term (current) use of opiate analgesic; Z88.1 Allergy status to other antibiotic agents; Z88.0 Allergy status to penicillin; Z88.6 Allergy status to analgesic agent
CPT/HCPCS: 70450; 74177; 80053; 80306; 81000; 82150; 83690; 83735; 84443; 84484; 84703; 85007; 85027; 85610; 85730; 93005; 93041; 99284; G0480 ×3; 36415; 80320; 80329

== ENCOUNTER → 2020-05-24 | Outpatient (CLI) | payer MEDICAID, OTHER ==
[~2020-05-24] MED LIST changes: +MECL-149 PO; +NAPR-1088 PO; -NAPR250T6 PO; +ONDA4TAB11 PO
--- NOTE | 2020-05-24 11:18 | Diagnostic Imaging Report ---
INDICATION: survey. TECHNIQUE: Multiple real-time grayscale images were obtained over the gravid uterus. COMPARISON: None FINDINGS: There is a single live fetus in transverse presentation, head to the maternal right. heart rate was recorded at 143 bpm. Placenta is anterior. Amniotic fluid index is 19.3 cm. Cervical length is 5.2 cm. survey demonstrates bladder, and stomach to be unremarkable. brain is unremarkable. Kidneys are suboptimal in evaluation due to position. There is a four-chamber heart. There is a three-vessel cord with normal insertion. spine is unremarkable. Biometrical measurements are as follows: Biparietal 5.02 cm, age 21 weeks 2 days. Head circumference 19.13 cm, age 21 weeks 3 days. Abdominal circumference 16.75 cm, age 21 weeks 6 days. Femur length 3.49 cm, age 21 weeks 1 days. Sonographic estimate age: 21 weeks 3 days. Sonographic estimated date of delivery: 10/01/2020. Estimated Weight: 422 gm (+/- 62 gm). LMP percentile: 59%. heart rate: 143 beats per minute. number: 1 of 1. IMPRESSION: Single live IUP 21 weeks 3 days gestational age. Estimated of confinement sonographically is 10/01/2020. Dictated by: Dictated on workstation # [id number]
== END ==
LOC: RAD 10:00
PROVIDERS: ATTEND Nurse Practitioner Women's Health
DX: Z34.02 Encounter for supervision of normal first pregnancy, second trimester (principal); Z3A.21 21 weeks gestation of pregnancy
CPT/HCPCS: 76805

== ENCOUNTER 2020-06-11 16:13 | Observation (INO) | payer OTHER ==
[~2020-06-11] VITALS: Ht 170 cm; Wt 78.3 kg
[2020-06-11 16:30] VITALS: BP 121/56
[2020-06-11 16:52] LABS: BILIRUBIN,URINE NEGATIVE (NEGATIVE); CLARITY,URINE CLEAR; COLOR,URINE YELLOW; GLUCOSE, URINE (UA) NEGATIVE (NEGATIVE); KETONES,URINE NEGATIVE (NEGATIVE); LEUKOCYTE ESTERASE ,URINE NEGATIVE (NEGATIVE); NITRITE,URINE NEGATIVE (NEGATIVE); PROTEIN,URINE NEGATIVE (NEGATIVE)
[2020-06-11 16:59] LABS: BACTERIA,URINE TRACE /HPF
[2020-06-11] MEDS ORDERED: BUTORPHANOL INJ 2 MG/ML (STADOL) VIAL ONE (17:02)
[2020-06-11] MEDS ORDERED: D5 LR IV SOLUTION 1,000 ML IV ONE ×2 (17:02→19:44)
[2020-06-11] MEDS ORDERED: D5 LR IV SOLUTION 1,000 ML IV SCH (17:15)
[2020-06-11] MEDS ORDERED: BUTORPHANOL INJ 2 MG/ML (STADOL) VIAL IV ONE ×2 (17:15→21:45)
[2020-06-11 17:52] LABS: BASOPHILS % (AUTO) 0 % (0-10); EOSINOPHILS # (AUTO) 0.1 10^3/uL (0.0-0.3); EOSINOPHILS % (AUTO) 1 % (0-10); HEMATOCRIT 37 % (35-52); HEMOGLOBIN 11.9 g/dL (11.5-16.0); LYMPHOCYTES # (AUTO) 1.6 10^3/uL (1.0-4.0); LYMPHOCYTES % (AUTO) 13 % (12-44); MEAN CORPUSCULAR HEMOGLOBIN 28 pg (25-34); MEAN CORPUSCULAR HGB CONC 33 g/dL (32-36); MEAN CORPUSCULAR VOLUME 85 fL (80-99); MEAN PLATELET VOLUME 9.8 fL (9.0-12.2); MONOCYTES # (AUTO) 0.4 10^3/uL (0.0-1.0); MONOCYTES % (AUTO) 3 % (0-12); NEUTROPHILS # (AUTO) 9.9 10^3/uL (1.8-7.8); NEUTROPHILS % (AUTO) 82 % (42-75); PLATELET COUNT 260 10^3/uL (130-400); WHITE BLOOD COUNT 12.1 10^3/uL (4.3-11.0)
[2020-06-11 18:04] LABS: ALBUMIN 3.7 GM/DL (3.2-4.5); CHLORIDE 104 MMOL/L (98-107); POTASSIUM 3.2 MMOL/L (3.6-5.0); SODIUM 137 MMOL/L (135-145)
[2020-06-11 18:05] LABS: CALCIUM 8.4 MG/DL (8.5-10.1)
[2020-06-11 18:06] LABS: GLUCOSE 99 MG/DL (70-105); TOTAL PROTEIN 6.6 GM/DL (6.4-8.2)
[2020-06-11 18:07] LABS: CARBON DIOXIDE 22 MMOL/L (21-32)
[2020-06-11 18:08] LABS: BILIRUBIN,TOTAL 0.3 MG/DL (0.1-1.0)
[2020-06-11 18:10] LABS: ALKALINE PHOSPHATASE 96 U/L (40-136); CREATININE SERUM 0.58 MG/DL (0.60-1.30); GFR ESTIMATED > 60
[2020-06-11 18:11] LABS: BUN/CREATININE RATIO 9
[2020-06-11 18:13] LABS: ALANINE AMINOTRANSFERASE 11 U/L (0-55)
[2020-06-11] MEDS: D5 LR IV SOLUTION 1,000 ML IV SCH (19:55)
[2020-06-11 20:01] VITALS: BP 114/59
[2020-06-11] MEDS ORDERED: diphenhydrAMINE 25 MG TAB (BENADRYL) PO PRN (20:30)
[2020-06-12 00:09] VITALS: BP 106/49
[2020-06-12] MEDS ORDERED: CALCIUM CARBONATE 500 MG (TUMS) TAB.CHEW ONE (02:28)
[2020-06-12] MEDS: D5 LR IV SOLUTION 1,000 ML IV SCH (02:37)
[2020-06-12] MEDS ORDERED: CALCIUM CARBONATE 500 MG (TUMS) TAB.CHEW PO PRN (02:45)
[2020-06-12] MEDS ORDERED: ANTACID SUSP 30 ML UDC (MYLANTA) ONE (06:49)
[2020-06-12] MEDS ORDERED: ANTACID SUSP 30 ML UDC (MYLANTA) PO PRN (07:00)
[2020-06-12 08:00] VITALS: BP 113/52
[2020-06-12] MEDS ORDERED: FAMOTIDINE 20MG/2ML IV (PEPCID) IVP ONE (08:15)
--- NOTE | 2020-06-12 08:24 | History & Physical ---
History and Physical Date Seen by Provider: June 12, 2020 Time Seen by Provider: 08:20 This patient is a 25-year-old multigravid female patient of Dr. Victoria for whom I am covering. She presented yesterday with complaints of pain pressure and contractions. Found to be andrey with some regularity initially. She was hydrated through the night until gradually spaced out. Patient also has complained of indigestion. This is not a new problem for her and it did respond somewhat to Mylanta and Tums. Morning patient reports feeling much better. She does feel persistent pressure in the pelvis denies contractions denies bleeding and denies discharge or rupture. Allergies are multiple as noted Medications are vitamins and Mylanta Medical social and surgical history is all per the antepartum record per Dr. Victoria HEENT exam is normal Neck is supple with no lymphadenopathy no thyromegaly Abdomen is gravid soft nontender nondistended There is some midepigastric tenderness on palpation Bowel sounds are present Fundus is nontender Extremities show no clubbing or cyanosis. There is no Homans' sign. Pelvic exam per the nurse showed a cervix that was thick and closed Laboratory Tests Test 06/11/20 16:30 06/11/20 17:42 Range/Units Urine Color YELLOW Urine Clarity CLEAR Urine pH 6.0 5-9 Urine Specific [place] <=1.005 1.016-1.022 Urine Protein NEGATIVE NEGATIVE Urine Glucose (UA) NEGATIVE NEGATIVE Urine Ketones NEGATIVE NEGATIVE Urine Nitrite NEGATIVE NEGATIVE Urine Bilirubin NEGATIVE NEGATIVE Urine Urobilinogen 0.2 < = 1.0 MG/DL Urine Leukocyte Esterase NEGATIVE NEGATIVE Urine RBC (Auto) NEGATIVE NEGATIVE Urine RBC NONE /HPF Urine WBC NONE /HPF Urine Crystals NONE /LPF Urine Bacteria TRACE /HPF Urine Casts NONE /LPF Urine Mucus NEGATIVE /LPF Urine Culture Indicated NO White Blood Count 12.1 H 4.3-11.0 10^3/uL Red Blood Count 4.32 3.80-5.11 10^6/uL Hemoglobin 11.9 11.5-16.0 g/dL Hematocrit 37 35-52 % Mean Corpuscular Volume 85 80-99 fL Mean Corpuscular Hemoglobin 28 25-34 pg Mean Corpuscular Hemoglobin Concent 33 32-36 g/dL Red Cell Distribution Width 13.5 10.0-14.5 % Platelet Count 260 130-400 10^3/uL Mean Platelet Volume 9.8 9.0-12.2 fL Immature Granulocyte % (Auto) 1 % Neutrophils (%) (Auto) 82 H 42-75 % Lymphocytes (%) (Auto) 13 12-44 % Monocytes (%) (Auto) 3 0-12 % Eosinophils (%) (Auto) 1 0-10 % Basophils (%) (Auto) 0 0-10 % Neutrophils # (Auto) 9.9 H 1.8-7.8 10^3/uL Lymphocytes # (Auto) 1.6 1.0-4.0 10^3/uL Monocytes # (Auto) 0.4 0.0-1.0 10^3/uL Eosinophils # (Auto) 0.1 0.0-0.3 10^3/uL Basophils # (Auto) 0.0 0.0-0.1 10^3/uL Immature Granulocyte # (Auto) 0.1 0.0-0.1 10^3/uL Sodium Level 137 135-145 MMOL/L Potassium Level 3.2 L 3.6-5.0 MMOL/L Chloride Level 104 98-107 MMOL/L Carbon Dioxide Level 22 21-32 MMOL/L Anion Gap 11 5-14 MMOL/L Blood Urea Nitrogen 5 L 7-18 MG/DL Creatinine 0.58 L 0.60-1.30 MG/DL Estimat Glomerular Filtration Rate > 60 BUN/Creatinine Ratio 9 Glucose Level 99 70-105 MG/DL Calcium Level 8.4 L 8.5-10.1 MG/DL Corrected Calcium 8.6 8.5-10.1 MG/DL Total Bilirubin 0.3 0.1-1.0 MG/DL Aspartate Amino Transf (AST/SGOT) 13 5-34 U/L Alanine Aminotransferase (ALT/SGPT) 11 0-55 U/L Alkaline Phosphatase 96 40-136 U/L Total Protein 6.6 6.4-8.2 GM/DL Albumin 3.7 3.2-4.5 GM/DL Lab work is as noted here and is normal Assessment and plan 25-week gestation with pain pressure and contraction. Contractions have resolved. Her presentation now is most consistent with lightening pain and aches and pains of . We will obtain an ultrasound to evaluate the kidneys and ureters as well as the urinary bladder and we will evaluate the with the ultrasound as well Providing ultrasound reassuring we will allow discharge home with follow-up in clinic 25-week with false labor Allergies and Home Medications Allergies Coded Allergies: measles, mumps, and rubella vaccine (Verified Allergy, Severe, HIVES, 09/12/17) Pt. reports that she was told by her mother that she has a severe allergy to the MMR vaccine. Penicillins (Verified Allergy, Mild, 12/07/15) amoxicillin (Verified Allergy, Mild, 12/07/15) cat dander (Verified Allergy, Mild, 12/07/15) erythromycin base (Verified Allergy, Mild, 12/07/15) ibuprofen (Verified Allergy, Mild, 12/07/15) mold (Verified Allergy, Mild, 12/07/15) peanut (Verified Allergy, Mild, 12/07/15) sesame seed (Verified Allergy, Mild, 12/07/15) shrimp (Verified Allergy, Mild, 12/07/15) Uncoded Allergies: MAPLE TREES (Allergy, Mild, 12/07/15) Home Medications Albuterol Sulfate 8.5 Gm Hfa.aer.ad, 1-2 PUFF IH QID, (Reported) Diphenhydramine HCl 25 Mg Capsule, 25 MG PO PRN, (Reported) Docusate Sodium 100 Mg Capsule, 100 MG PO BID PRN for CONSTIPATION-1ST LINE Prescribed by: FABRIZIO VICTORIA on 09/12/17 09 Ferrous Sulfate 325 Mg Tablet, 325 MG PO DAILY@0800 Prescribed by: FABRIZIO VICTORIA on 09/12/17903 Hydrocodone Bit/Acetaminophen 1 Tab Tab, 1-2 TAB PO Q4H PRN for PAIN-MODERATE Prescribed by: FABRIZIO VICTORIA on 09/12/17903 Loratadine 10 Mg Capsule, 10 MG PO DAILY, (Reported) Lorazepam 1 Mg Tablet, 1 MG PO Q8H PRN for ANXIETY Prescribed by: BOB CONTRERAS on 12/20/19 160 Meclizine HCl 25 Mg Tablet, 50 MG PO Q6 PRN for DIZZINESS Prescribed by: LAURIE TRIPATHI on 12/21/192233 Ondansetron 4 Mg Tab.rapdis, 4 MG PO Q4H Prescribed by: LAURIE TRIPATHI on 12/21/192233 Pediatric Multivitamin Comb#30 1 Each Tab.chew, 2 EACH PO DAILY, (Reported) [Benzocaine/Menthol] 56 ML AEROSOL, 0 ML TP UD PRN for PAIN- SEE INSTRUCTIONS EXTERNAL USE ONLY Prescribed by: FABRIZIO VICTORIA on 09/12/17 0904 Patient Home Medication List Home Medication List Reviewed: STACEY Martinez MD June 12, 2020 08:24
--- NOTE | 2020-06-12 11:51 | Diagnostic Imaging Report ---
EXAMINATION: Ultrasound limited. INDICATION: Lower abdominal pain. FINDINGS: The previous OB ultrasound exam performed on 05/24/2020 noted a single live fetus of approximately 20 weeks 3 days gestation +/- 1.5 weeks. On this exam, the fetus is again visualized. The fetus is in transverse presentation. heart motion is noted and a rate of 125 BPM was recorded. There are no obvious abnormalities identified although a complete survey was not performed. The placenta is anterior and there is no previa. There is no sign of an abruption either. The amniotic fluid volume is within normal limits. The cervix was identified and measures 4.0 cm in length. There is no visualized pelvic mass or free fluid collection noted. The growth parameters were not obtained for this study. IMPRESSION: 1. There is a single live fetus in transverse presentation. 2. There are no obvious abnormalities identified. 3. The placenta is intact and there is no previa. 4. There is no acute abnormality identified. Dictated by: Dictated on workstation # [id number]
--- NOTE | 2020-06-12 11:54 | Diagnostic Imaging Report ---
PROCEDURE: US Renal Bilateral. TECHNIQUE: Multiple real-time grayscale images were obtained over the kidneys in various projections bilaterally. INDICATION: Lower abdominal pain. There are no prior renal ultrasound examinations available for comparison. Both kidneys were identified. The right kidney measures 11.4 x 5.1 x 4.5 cm while the left kidney is estimated to be 11.0 x 5.5 x 5.4 cm. There is no evidence for a solid renal mass or for hydronephrosis of either kidney. The renal cortices are normal in thickness and echogenicity. The bladder was imaged during the course of the exam. The bladder contains a moderate amount of urine. There is no obvious bladder abnormality identified and both ureteral jets were noted. IMPRESSION: 1. There is no evidence for a solid renal mass or for an acute abnormality of either kidney. 2. The urinary bladder is grossly unremarkable. Both ureteral jets were identified. Dictated by: Dictated on workstation # [id number]
== END 2020-06-12 10:30 | disposition home or self-care (01) ==
LOC: WSo 16:13 → LDRP 16:14 → WSo 06-12 10:29 → LDRP 06-12 10:29
PROVIDERS: ADMIT Obstetrics & Gynecology; ATTEND Obstetrics & Gynecology
DX: O26.892 Other specified pregnancy related conditions, second trimester (principal); R10.30 Lower abdominal pain, unspecified; Z3A.25 25 weeks gestation of pregnancy
CPT/HCPCS: 36415; 76770; 76815; 80053; 81000; 85025; 87088; 96361; 96374; 96375; 96376; 99211; G0378

== ENCOUNTER 2020-08-21 16:45 | Outpatient (CLI) | payer OTHER ==
[~2020-08-21] VITALS: Ht 170.2 cm; Wt 79.7 kg
[2020-08-21 16:51] VITALS: BP 116/62
[2020-08-21] MEDS ORDERED: PEDI1TAB35 PO (17:53)
[2020-08-21] MEDS ORDERED: FOLI0.4T6 PO (17:53)
[2020-08-21] MEDS ORDERED: CETI10CA PO (17:53)
[2020-08-21] MEDS ORDERED: FAMO40TA72 PO (17:53)
[2020-08-21] MEDS ORDERED: ACET-2267 PO (17:53)
--- NOTE | 2020-08-22 09:11 | Physician Query-Final Dx ---
CANDY GAMEZ 08/22/20 0911: Clinic Account Progress/Dx Physician Query: Please give diagnosis Please include # weeks gestation Date of Service Aug 21, 2020 at 16:45 MILLIE HAMLIN DO 08/22/20 1157: Clinic Account Progress/Dx DIAGNOSIS: Diagnosis 33 week gestation pelvic pain/pressure CANDY GAMEZ Aug 22, 2020 09:11 MILLIE HAMLIN DO Aug 22, 2020 11:57
== END 2020-08-21 18:11 | disposition home or self-care (01) ==
LOC: WSo 16:45 → LDRP 16:46 → WSo 18:11
PROVIDERS: ATTEND Obstetrics & Gynecology
DX: O26.893 Other specified pregnancy related conditions, third trimester (principal); R10.2 Pelvic and perineal pain; Z3A.33 33 weeks gestation of pregnancy
CPT/HCPCS: 99213

== ENCOUNTER 2020-09-14 19:56 | Inpatient (IN) | payer OTHER, MEDICAID ==
[~2020-09-14] VITALS: Ht 170.2 cm; Wt 78.6 kg
[2020-09-14] VITALS (15 sets, daily range): BP systolic 111–136; BP diastolic 57–76
[~2020-09-14 19:56] MED LIST changes: +ACET-2267 PO; +CETI10CA PO; +FAMO40TA72 PO; +FOLI0.4T6 PO; +PEDI1TAB35 PO
[2020-09-14 20:25] LABS: BILIRUBIN,URINE NEGATIVE (NEGATIVE); CLARITY,URINE CLEAR; COLOR,URINE YELLOW; GLUCOSE, URINE (UA) NEGATIVE (NEGATIVE); KETONES,URINE NEGATIVE (NEGATIVE); LEUKOCYTE ESTERASE ,URINE NEGATIVE (NEGATIVE); NITRITE,URINE NEGATIVE (NEGATIVE); PH,URINE 6.5 (5-9); PROTEIN,URINE NEGATIVE (NEGATIVE)
[2020-09-14 20:38] LABS: BACTERIA,URINE NEGATIVE /HPF; RBC,URINE 0-2 /HPF; WBC,URINE 0-2 /HPF
[2020-09-14] MEDS ORDERED: LORA10CA PO (20:44)
[2020-09-14] MEDS ORDERED: DIPH25CA79 PO (20:44)
[2020-09-14] MEDS ORDERED: D5 LR IV SOLUTION 1,000 ML IV ONE (21:22)
[2020-09-14] MEDS: D5 LR IV SOLUTION 1,000 ML IV SCH (21:44)
[2020-09-14] MEDS ORDERED: MINERAL OIL CONCENTRATE 99.9% 15 ML UDC TOP PRN (21:45)
[2020-09-14 21:58] LABS: BASOPHILS % (AUTO) 0 % (0-10); EOSINOPHILS # (AUTO) 0.2 10^3/uL (0.0-0.3); EOSINOPHILS % (AUTO) 1 % (0-10); HEMATOCRIT 38 % (35-52); HEMOGLOBIN 12.6 g/dL (11.5-16.0); LYMPHOCYTES # (AUTO) 1.9 10^3/uL (1.0-4.0); LYMPHOCYTES % (AUTO) 14 % (12-44); MEAN CORPUSCULAR HEMOGLOBIN 28 pg (25-34); MEAN CORPUSCULAR HGB CONC 34 g/dL (32-36); MEAN CORPUSCULAR VOLUME 82 fL (80-99); MEAN PLATELET VOLUME 10.6 fL (9.0-12.2); MONOCYTES # (AUTO) 0.7 10^3/uL (0.0-1.0); MONOCYTES % (AUTO) 5 % (0-12); NEUTROPHILS # (AUTO) 10.6 10^3/uL (1.8-7.8); NEUTROPHILS % (AUTO) 79 % (42-75); PLATELET COUNT 241 10^3/uL (130-400); WHITE BLOOD COUNT 13.3 10^3/uL (4.3-11.0)
[2020-09-14] MEDS: CATHETER FLUSH 10 ML SYR IV SCH (22:27)
[2020-09-14] MEDS ORDERED: fentaNYL 2 mcg/ml BUPIVA 0.125 100 ML ONE (22:35)
[2020-09-14] MEDS ORDERED: NALOXONE 0.4 MG/ML 1 ML (NARCAN) VIAL IV PRN ×2 (23:45)
[2020-09-14] MEDS ORDERED: METOCLOPRAMIDE INJ 10 MG/2 ML (REGLAN) IV PRN (23:45)
[2020-09-14] MEDS ORDERED: ONDANSETRON 4 MG/2 ML (SDV) Z0FRAN IV PRN (23:45)
[2020-09-14] MEDS ORDERED: LACTATED RINGERS 1,000 ML IV SCH (23:45)
[2020-09-14] MEDS ORDERED: diphenhydrAMINE 50 MG/ML INJ (BENADRYL) IV PRN (23:45)
[2020-09-15] VITALS (67 sets, daily range): BP systolic 99–131; BP diastolic 55–79
[2020-09-15] MEDS: EPIDURAL (fentaNYL 2 MCG/ML BUPIVA 0.125%)100 ML BAG EPI SCH ×3 (00:25→14:42)
[2020-09-15] MEDS: D5 LR IV SOLUTION 1,000 ML IV SCH ×2 (05:36→13:52)
[2020-09-15] MEDS: CATHETER FLUSH 10 ML SYR IV SCH ×2 (06:44→14:26)
--- NOTE | 2020-09-15 08:00 | History & Physical-OB ---
OB - Chief Complaint & HPI Date/Time Date of Admission: Date of Admission: Sep 14, 2020 at 21:27 Date seen by a Provider: Sep 15, 2020 Time Seen by a Provider: 07:00 Chief Complaint/History OB-Reason for Admission/Chief: Onset of Labor Hx : 3 Hx Para: 2 Expected Date of Delivery: Oct 03, 2020 Gestational Age in Weeks: 37 Gestational Age in Days: 2 Other reason for admission: Patient presents with complaint of contractions. She was 1 cm dilated and andrey every 3-5 minutes but over the time of observation started andrey more regularly and next cervical exam was [address] Victoria. Patient reports history of "fast labor" so she was admitted for labor. uncomplicated. She is . History of Labs O-/- Rhogam 07/10/2020 Hiv - HBsAg - VDRL NR GBS - Rub I Has not had covid vaccine. Other Multiple allergies Allergies and Home Medications Allergies Coded Allergies: measles, mumps, and rubella vaccine (Verified Allergy, Severe, HIVES, 09/12/17) Pt. reports that she was told by her mother that she has a severe allergy to the MMR vaccine. Penicillins (Verified Allergy, Mild, Anaphylaxis, 08/21/20) amoxicillin (Verified Allergy, Mild, 12/07/15) cat dander (Verified Allergy, Mild, 12/07/15) erythromycin base (Verified Allergy, Mild, Anaphylaxis, 08/21/20) ibuprofen (Verified Allergy, Mild, Anaphylaxis, 08/21/20) mold (Verified Allergy, Mild, 12/07/15) peanut (Verified Allergy, Mild, 12/07/15) sesame seed (Verified Allergy, Mild, 12/07/15) shrimp (Verified Allergy, Mild, 12/07/15) latex (Verified Allergy, Unknown, 08/21/20) Uncoded Allergies: MAPLE TREES (Allergy, Mild, 12/07/15) Home Medications Pediatric Multivit Comb. No.49 1 Each Tab.chew, 2 EACH PO DAILY, (Reported) Last Action: Reviewed Patient Home Medication List Home Medication List Reviewed: Yes OB - History Hx of Present Care: Yes Ultrasounds: Normal mid trimester US Obstetrical Complications: None Medical Complications: None Information Induced Hypertension: No Maternal Gestational Diabetes: No Hemorrhage: No Obstetrical History Hx : 3 Hx Para: 2 Hx Multiple Gestation: No Hx Ectopic : No Hx Stillbirth: No Hx Complication: No Hx Induced Hypertens: No Hx Maternal Gestational Diabet: No Hx Hemorrhage: No Delivery History Hx Dystocia: No Hx Forceps Assisted Delivery: No Hx Vacuum Extraction Assisted: No Hx Placenta Abnormality: No Hx Distress: No Hx Large For Gestational Age I: No Hx Small for Gestational Age I: No Hx Section: No Hx Blood Disorders: No (BLOOD TYPE O NEGATIVE) Adverse Rxn to Tranfusion: No Patient Past Medical History n/a Social History/Family History Alcohol Use: Denies Use Recreational Drug Use: No Smoking Cessation: Never smoker 2nd Hand Smoke Exposure: Yes Immunizations Hepatitis A: Yes Hepatitis B: Yes Tetanus Booster (TDap): Less than 5yrs (08/22/2020) Date of Pneumonia Vaccine: Nov 11, 2015 Date of Influenza Vaccine: Oct 09, 2016 Rubella: immune RPR/VDRL: Negative GBS Status: Negative HBsAG: Negative OB - Admission Exam Physical Exam Vitals: Vital Signs 09/15/20 09/15/20 05:45 07:00 Temp 36.4 Pulse 71 Resp 18 B/P (MAP) 119/60 (79) Pulse Ox 96 O2 Delivery Room Air HEENT: NCAT Lungs: Clear Abdomen: Gravid Cervical Dilatation: 3cm Effacement: 75% Station: -2 Membranes: Intact Heart Rate: 130's Accelerations: Accelerations Present Decelerations: No Decelerations Short Term Variability: Present Usp Variability: Average (6-25) Contractions on Admission: 6-10 Minutes Apart Labs Laboratory Tests Test 09/14/20 20:10 09/14/20 21:30 Range/Units Urine Color YELLOW Urine Clarity CLEAR Urine pH 6.5 5-9 Urine Specific [place] 1.025 H 1.016-1.022 Urine Protein NEGATIVE NEGATIVE Urine Glucose (UA) NEGATIVE NEGATIVE Urine Ketones NEGATIVE NEGATIVE Urine Nitrite NEGATIVE NEGATIVE Urine Bilirubin NEGATIVE NEGATIVE Urine Urobilinogen 1.0 < = 1.0 MG/DL Urine Leukocyte Esterase NEGATIVE NEGATIVE Urine RBC (Auto) NEGATIVE NEGATIVE Urine RBC 0-2 /HPF Urine WBC 0-2 /HPF Urine Squamous Epithelial Cells NONE /HPF Urine Renal Epithelial Cells NONE /HPF Urine Crystals NONE /LPF Urine Bacteria NEGATIVE /HPF Urine Casts NONE /LPF Urine Mucus NEGATIVE /LPF Urine Culture Indicated NO White Blood Count 13.3 H 4.3-11.0 10^3/uL Red Blood Count 4.57 3.80-5.11 10^6/uL Hemoglobin 12.6 11.5-16.0 g/dL Hematocrit 38 35-52 % Mean Corpuscular Volume 82 80-99 fL Mean Corpuscular Hemoglobin 28 25-34 pg Mean Corpuscular Hemoglobin Concent 34 32-36 g/dL Red Cell Distribution Width 13.8 10.0-14.5 % Platelet Count 241 130-400 10^3/uL Mean Platelet Volume 10.6 9.0-12.2 fL Immature Granulocyte % (Auto) 0 % Neutrophils (%) (Auto) 79 H 42-75 % Lymphocytes (%) (Auto) 14 12-44 % Monocytes (%) (Auto) 5 0-12 % Eosinophils (%) (Auto) 1 0-10 % Basophils (%) (Auto) 0 0-10 % Neutrophils # (Auto) 10.6 H 1.8-7.8 10^3/uL Lymphocytes # (Auto) 1.9 1.0-4.0 10^3/uL Monocytes # (Auto) 0.7 0.0-1.0 10^3/uL Eosinophils # (Auto) 0.2 0.0-0.3 10^3/uL Basophils # (Auto) 0.0 0.0-0.1 10^3/uL Immature Granulocyte # (Auto) 0.1 0.0-0.1 10^3/uL OB - Assessment/Plan/Diagnosis Assessment Assessment: active labor Admission Dx LAbor at 37 + weeks Admission Status: Inpatient Order (span 2 midnights) Reason for Inpatient Admission: labor Plan Plan: Expectant Management Other Plan anticipate MILLIE HAMLIN DO Sep 15, 2020 08:00
[2020-09-15] MEDS ORDERED: OXYTOCIN PRE-MIX DRIP 500 ML IV SCH (09:30)
[2020-09-15] MEDS: OXYTOCIN PRE-MIX DRIP 500 ML IV SCH ×2 (15:25→15:56)
[2020-09-15] MEDS: LIDOCAINE/EPI 2% 1:200,00 (XYLOCAINE) 20 ML VIAL ONE ×2 (15:38→15:39)
[2020-09-15] MEDS ORDERED: DIBUCAINE 1% OINTMENT 30 GM TUBE TOP PRN (15:45)
[2020-09-15] MEDS ORDERED: NALOXONE 0.4 MG/ML 1 ML (NARCAN) VIAL IV PRN (15:45)
[2020-09-15] MEDS ORDERED: BENZOCAINE/MENTHOL (DERMOPLAST) 56 ML CAN TP PRN (15:45)
[2020-09-15] MEDS ORDERED: HYDROcodone/APAP 5 MG/325 MG (LORTAB) TAB PO PRN (15:45)
[2020-09-15] MEDS ORDERED: WITCH HAZEL(TUCKS) 40 EA JAR TOP PRN (15:45)
[2020-09-15] MEDS ORDERED: LIDOCAINE/EPI 2% 1:100,00 (XYLOCAINE) 20 ML VIAL INJ ONE (15:45)
[2020-09-15] MEDS ORDERED: TETANUS,DIPTH,PERTUSS P/F (BOOSTRIX) 0.5 ML VIAL IM ONE (15:45)
--- NOTE | 2020-09-15 15:45 | OB Labor & Delivery Record ---
L&D History Date of Service Date of Service: Sep 15, 2020 History Expected Date of Delivery: Oct 03, 2020 Gestational Age in Weeks: 37 Hx : 3 Hx Para: 2 Complications Events: Routine care Operative Indications (Cesarea: N/A-Vaginal Delivery Intrapartal Events: None L&D Stage1 Stage One Onset of Labor - Date: Sep 15, 2020 Monitors and Tracing Monitor Mode: External Heart Rate: 125 Station: -2 Motor Polarizer Variability: Average (6-10) Short Term Variability: Present Presentation: Vertex Vital Signs VS - Last 72 Hours, by Label 09/14/20 09/14/20 09/14/20 09/14/20 20:10 20:46 21:30 22:00 Temp 36.7 36.7 Pulse 86 86 91 90 Resp 18 18 B/P (MAP) 136/76 (96) 117/73 (88) Pulse Ox 99 99 O2 Delivery Room Air Room Air 09/14/20 09/14/20 09/14/20 09/14/20 22:30 23:00 23:15 23:24 Pulse 81 71 70 93 Resp 18 18 B/P (MAP) 118/69 (85) 116/62 (80) 115/59 (77) 119/74 (89) Pulse Ox 97 97 98 O2 Delivery Room Air Room Air 09/14/20 09/14/20 09/14/20 09/14/20 23:29 23:30 23:34 23:40 Temp 36.5 Pulse 70 72 78 73 Resp 18 B/P (MAP) 117/65 (82) 120/67 (84) 114/65 (81) Pulse Ox 98 94 95 97 O2 Delivery Room Air 09/14/20 09/14/20 09/14/20 09/14/20 23:43 23:45 23:49 23:53 Pulse 71 77 71 74 Resp 18 B/P (MAP) 111/60 (77) 125/57 (79) 130/58 (82) Pulse Ox 95 97 97 96 O2 Delivery Room Air 09/14/20 09/15/20 09/15/20 09/15/20 23:58 00:00 00:15 00:30 Pulse 75 72 73 63 Resp 18 18 18 B/P (MAP) 119/64 (82) 111/59 (76) 112/60 (77) Pulse Ox 96 97 96 95 O2 Delivery Room Air Room Air Room Air 09/15/20 09/15/20 09/15/20 09/15/20 00:45 01:00 01:15 01:30 Pulse 64 63 64 65 Resp 18 18 18 18 B/P (MAP) 108/59 (75) 109/57 (74) 109/57 (74) 107/59 (75) Pulse Ox 94 94 95 95 O2 Delivery Room Air Room Air Room Air Room Air 09/15/20 09/15/20 09/15/20 09/15/20 01:45 02:00 02:15 02:30 Pulse 71 62 63 65 Resp 18 18 18 18 B/P (MAP) 116/70 (85) 114/62 (79) 111/61 (78) 113/63 (80) Pulse Ox 95 96 97 98 O2 Delivery Room Air Room Air Room Air Room Air 09/15/20 09/15/20 09/15/20 09/15/20 02:45 03:00 03:15 03:30 Pulse 61 75 63 64 Resp 18 18 18 18 B/P (MAP) 109/60 (76) 114/61 (78) 107/61 (76) 110/64 (79) Pulse Ox 95 95 97 96 O2 Delivery Room Air Room Air Room Air Room Air 09/15/20 09/15/20 09/15/20 09/15/20 03:45 04:00 04:15 04:30 Pulse 54 58 51 65 Resp 18 18 18 18 B/P (MAP) 110/60 (77) 110/59 (76) 108/55 (72) 107/57 (74) Pulse Ox 95 97 96 96 O2 Delivery Room Air Room Air Room Air Room Air 09/15/20 09/15/20 09/15/20 09/15/20 04:45 05:00 05:15 05:30 Pulse 56 65 65 59 Resp 18 18 18 18 B/P (MAP) 108/62 (77) 110/57 (74) 109/60 (76) 104/57 (73) Pulse Ox 96 96 95 96 O2 Delivery Room Air Room Air Room Air Room Air 09/15/20 09/15/20 09/15/20 09/15/20 05:45 06:00 06:15 06:30 Temp 36.4 Pulse 58 57 57 54 Resp 18 18 18 18 B/P (MAP) 107/63 (78) 109/62 (78) 110/63 (79) 109/64 (79) Pulse Ox 98 97 97 97 O2 Delivery Room Air Room Air Room Air Room Air 09/15/20 09/15/20 09/15/20 09/15/20 06:45 07:00 07:15 07:30 Pulse 68 71 64 60 Resp 18 18 18 18 B/P (MAP) 104/61 (75) 119/60 (79) 107/65 (79) 112/65 (81) Pulse Ox 95 96 97 98 O2 Delivery Room Air Room Air Room Air Room Air 09/15/20 09/15/20 09/15/20 09/15/20 07:45 08:00 08:15 08:30 Pulse 65 61 65 70 Resp 18 18 18 18 B/P (MAP) 106/62 (77) 108/63 (78) 118/70 (86) 109/67 (81) Pulse Ox 98 98 97 98 O2 Delivery Room Air Room Air Room Air Room Air 09/15/20 09/15/20 09/15/20 09/15/20 08:45 08:49 09:00 09:15 Temp 36.4 Pulse 82 70 61 Resp 18 18 18 B/P (MAP) 107/65 (79) 125/65 (85) 116/62 (80) Pulse Ox 98 97 97 98 O2 Delivery Room Air Room Air Room Air Room Air 09/15/20 09/15/20 09/15/20 09/15/20 09:30 09:45 10:00 10:15 Pulse 66 63 60 62 Resp 18 18 18 18 B/P (MAP) 108/69 (82) 116/66 (83) 115/65 (82) 118/70 (86) Pulse Ox 98 97 97 97 O2 Delivery Room Air Room Air Room Air Room Air 09/15/20 09/15/20 09/15/20 09/15/20 10:30 10:45 11:00 11:15 Pulse 65 68 60 68 Resp 18 18 18 18 B/P (MAP) 116/67 (83) 116/67 (83) 119/67 (84) 121/70 (87) O2 Delivery Room Air Room Air Room Air Room Air 09/15/20 09/15/20 09/15/20 09/15/20 11:30 11:45 12:00 12:15 Temp 36.7 Pulse 57 59 58 64 Resp 18 18 18 18 B/P (MAP) 117/68 (84) 131/67 (88) 119/69 (86) 104/59 (74) O2 Delivery Room Air Room Air Room Air Room Air 09/15/20 09/15/20 09/15/20 09/15/20 12:30 12:45 13:00 13:15 Pulse 62 62 53 54 Resp 18 18 18 18 B/P (MAP) 107/64 (78) 101/61 (74) 116/76 (89) 111/71 (84) O2 Delivery Room Air Room Air Room Air Room Air 09/15/20 09/15/20 09/15/20 09/15/20 13:30 13:45 14:00 14:15 Pulse 65 60 59 65 Resp 18 18 18 18 B/P (MAP) 115/72 (86) 119/70 (86) 108/64 (79) 118/56 (76) O2 Delivery Room Air Room Air Room Air Room Air 09/15/20 14:30 Pulse 53 Resp 18 B/P (MAP) 102/59 (73) O2 Delivery Room Air Rupture of Membranes Spontaneous Ruture of Membrane: Yes Amniotic Membrane Rupture Time: 1318 Amniotic Membrane Fluid Desc.: Clear Vaginal Bleeding Description: Normal Show Induction/Anesthesia Epidural Cath Placement - Time: 2328 Progress/Notes Patient admitted by my partner Dr. Espinoza in early labor, she made change from 1.5-3 cm. However her labor became protracted, and had to be augmented with AROM and Pitocin, she received an epidural and progressed to complete and +2 station. L&D Stage2 Stage Two Stage II Date: Sep 15, 2020 Monitors and Tracing Monitor Mode: External Heart Rate: 125 Monitor Accelerations: Uniform Monitor Decelerations: Variable Motor Polarizer Variability: Average (6-10) Short Term Variability: Present Position: Right Occiput Anterior Presentation: Vertex Cord Descript/Complications Cord Vessel Description: 3 Vessels Delivery Type Delivery Method: Spontaneous Vaginal Anterior Shoulder: Left Episiotomy/Perineal Laceration Laceraction(s)/Extensions: Yes Episiotomy Description: Perineal Extension/lac, 1st degree Degree (describe repair) 1st degree perineal laceration, and periurethral left sided repaired using 3-0 rapide in usual fashion. Condition of Delivery 1 minute Comment: 8 5 minute Comment: 9 Notes Live female weight pending Condition of Infant Condition of Infant: Living Exam: No Observed Abnormalities Resuscitation Resuscitation: N/A - Spontaneous Resp L&D Stage3 Stage Three Stage III Date: Sep 15, 2020 Pictocin Pitocin Administration mu/min: 10 Pitocin ml/hr: 10 Pitocin Administration Comment: 1325 pitocin increased Placenta Delivery Placenta Delivery: Spontaneous Delivery Summary Summary Estimated blood loss (mL): 250 Attending at delivery: Fabrizio Navas DO Condition of Delivery Examined: Cervix Examined, Uterus Explored Post Hemorrhage: No Condition of Mother stable Condition of Infant (s) stable FABRIZIO NAVAS DO Sep 15, 2020 15:45
--- NOTE | 2020-09-15 15:46 | Discharge Inst-Women's Service ---
Discharge Inst-Women's Serv Depart Medication/Instructions New, Converted or Re-Newed RX: RX on Chart Final Diagnosis PPD 1 NVD Problems Reviewed?: Yes Consults/Follow Up Additional Follow Up: Yes Orders/Referrals Dr. Navas in 6 weeks Activity Activity: Activity as Tolerated Driving Instructions: No Driving for 1 Week NO SMOKING: NO SMOKING Nothing Inside Vagina: No Douching, No [place], No Tampons Diet Discharge Diet: No Restrictions Symptoms to Report to : Bleeding Excessive, Pain Increased, Fever Over 101 Degrees F, Vaginal Bleeding Increase, Questions/Concerns For Any Problems or Questions: Contact Your Physician FABRIZIO NAVAS DO Sep 15, 2020 15:46
[2020-09-15] MEDS ORDERED: DCS100C PO (15:49)
[2020-09-15] MEDS ORDERED: NAPR-1088 PO (15:49)
[2020-09-15] MEDS ORDERED: FERR325T24 PO (15:49)
[2020-09-15] MEDS ORDERED: ACHD5005 PO (15:49)
[2020-09-15] MEDS ORDERED: CATHETER FLUSH 10 ML SYR IV SCH (22:00)
[2020-09-15] MEDS: DOCUSATE SODIUM 100 MG (COLACE) CAP PO SCH (22:02)
[2020-09-15] MEDS: NAPROXEN 250 MG (NAPROSYN) TABLET PO SCH (22:02)
[2020-09-16 02:10] VITALS: BP 109/59
[2020-09-16 06:11] VITALS: BP 119/66
[2020-09-16 06:32] LABS: BASOPHILS % (AUTO) 0 % (0-10); EOSINOPHILS # (AUTO) 0.1 10^3/uL (0.0-0.3); EOSINOPHILS % (AUTO) 1 % (0-10); HEMATOCRIT 39 % (35-52); HEMOGLOBIN 12.8 g/dL (11.5-16.0); LYMPHOCYTES # (AUTO) 2.1 10^3/uL (1.0-4.0); LYMPHOCYTES % (AUTO) 21 % (12-44); MEAN CORPUSCULAR HEMOGLOBIN 27 pg (25-34); MEAN CORPUSCULAR HGB CONC 33 g/dL (32-36); MEAN CORPUSCULAR VOLUME 83 fL (80-99); MEAN PLATELET VOLUME 10.5 fL (9.0-12.2); MONOCYTES # (AUTO) 0.6 10^3/uL (0.0-1.0); MONOCYTES % (AUTO) 6 % (0-12); NEUTROPHILS # (AUTO) 7.2 10^3/uL (1.8-7.8); NEUTROPHILS % (AUTO) 72 % (42-75); PLATELET COUNT 187 10^3/uL (130-400); WHITE BLOOD COUNT 10.1 10^3/uL (4.3-11.0)
[2020-09-16] MEDS ORDERED: PRENATAL VITAMIN 1 EA TAB PO SCH (07:00)
[2020-09-16 08:35] VITALS: BP 118/60
[2020-09-16] MEDS: DOCUSATE SODIUM 100 MG (COLACE) CAP PO SCH (08:39)
--- NOTE | 2020-09-16 08:45 | Postpartum Progress Note ---
Note Note Day # 1 s/p Subjective: Patient is without complaints. Ambulating, voiding. Tolerating a regular diet w ithout nausea or vomiting. Normal lochia. Pain is well controlled with oral pain medications. breast/bottle feeding. Objective: 09/15/20 09/16/20 09/16/20 09/16/20 22:00 02:10 06:11 08:35 Temp 36.7 36.5 36.3 36.9 Pulse 75 61 71 71 Resp 18 18 18 18 B/P (MAP) 117/67 (84) 109/59 (76) 119/66 (83) 118/60 (79) Pulse Ox 96 98 99 97 O2 Delivery Room Air Room Air 09/16/20 00:00 Intake Total 1000 ml Balance 1000 ml Laboratory Tests Test 09/16/20 06:05 Range/Units White Blood Count 10.1 4.3-11.0 10^3/uL Red Blood Count 4.72 3.80-5.11 10^6/uL Hemoglobin 12.8 11.5-16.0 g/dL Hematocrit 39 35-52 % Mean Corpuscular Volume 83 80-99 fL Mean Corpuscular Hemoglobin 27 25-34 pg Mean Corpuscular Hemoglobin Concent 33 32-36 g/dL Red Cell Distribution Width 13.8 10.0-14.5 % Platelet Count 187 130-400 10^3/uL Mean Platelet Volume 10.5 9.0-12.2 fL Immature Granulocyte % (Auto) 0 % Neutrophils (%) (Auto) 72 42-75 % Lymphocytes (%) (Auto) 21 12-44 % Monocytes (%) (Auto) 6 0-12 % Eosinophils (%) (Auto) 1 0-10 % Basophils (%) (Auto) 0 0-10 % Neutrophils # (Auto) 7.2 1.8-7.8 10^3/uL Lymphocytes # (Auto) 2.1 1.0-4.0 10^3/uL Monocytes # (Auto) 0.6 0.0-1.0 10^3/uL Eosinophils # (Auto) 0.1 0.0-0.3 10^3/uL Basophils # (Auto) 0.0 0.0-0.1 10^3/uL Immature Granulocyte # (Auto) 0.0 0.0-0.1 10^3/uL Physical Exam: General - Alert and oriented, no apparent distress Abdomen - Soft, appropriately tender to palpation, non-distended, fundus firm at umbilicus Extremities - no edema, negative Tammi's bilaterally [] Assessment: [] post- day # [], status post [] vaginal delivery. Recovering well, hemodynamically stable [] Plan: Routine care. Encourage breast feeding. Encourage ambulation. Ferrous sulfate supplementation. Plan for discharge [] Vitals - Labs Vital Signs - I&O Vital Signs Date Time Temp Pulse Resp B/P (MAP) Pulse Ox O2 Delivery O2 Flow Rate FiO2 09/16/20 08:35 36.9 71 18 118/60 (79) 97 Room Air 09/16/20 06:11 36.3 71 18 119/66 (83) 99 09/16/20 02:10 36.5 61 18 109/59 (76) 98 09/15/20 22:00 36.7 75 18 117/67 (84) 96 Room Air 09/15/20 16:48 36.7 58 18 116/79 (91) Room Air 09/15/20 16:18 65 18 126/69 (88) Room Air 09/15/20 16:03 68 18 115/59 (77) Room Air 09/15/20 15:49 36.8 74 18 120/61 (80) Room Air 09/15/20 15:35 36.9 77 18 112/56 (74) Room Air 09/15/20 15:10 68 18 111/59 (76) Room Air 09/15/20 15:00 70 18 99/56 (70) Room Air 09/15/20 14:45 67 18 113/67 (82) Room Air 09/15/20 14:30 53 18 102/59 (73) Room Air 09/15/20 14:15 65 18 118/56 (76) Room Air 09/15/20 14:00 59 18 108/64 (79) Room Air 09/15/20 13:45 60 18 119/70 (86) Room Air 09/15/20 13:30 65 18 115/72 (86) Room Air 09/15/20 13:15 54 18 111/71 (84) Room Air 09/15/20 13:00 53 18 116/76 (89) Room Air 09/15/20 12:45 62 18 101/61 (74) Room Air 09/15/20 12:30 62 18 107/64 (78) Room Air 09/15/20 12:15 64 18 104/59 (74) Room Air 09/15/20 12:00 36.7 58 18 119/69 (86) Room Air 09/15/20 11:45 59 18 131/67 (88) Room Air 09/15/20 11:30 57 18 117/68 (84) Room Air 09/15/20 11:15 68 18 121/70 (87) Room Air 09/15/20 11:00 60 18 119/67 (84) Room Air 09/15/20 10:45 68 18 116/67 (83) Room Air 09/15/20 10:30 65 18 116/67 (83) Room Air 09/15/20 10:15 62 18 118/70 (86) 97 Room Air 09/15/20 10:00 60 18 115/65 (82) 97 Room Air 09/15/20 09:45 63 18 116/66 (83) 97 Room Air 09/15/20 09:30 66 18 108/69 (82) 98 Room Air 09/15/20 09:15 61 18 116/62 (80) 98 Room Air 09/15/20 09:00 70 18 125/65 (85) 97 Room Air 09/15/20 08:49 97 Room Air 09/15/20 08:45 36.4 82 18 107/65 (79) 98 Room Air I & O 09/16/20 07:00 Intake Total 1000 ml Balance 1000 ml Labs Laboratory Tests 09/16/20 06:05: White Blood Count 10.1, Red Blood Count 4.72, Hemoglobin 12.8, Hematocrit 39, Mean Corpuscular Volume 83, Mean Corpuscular Hemoglobin 27, Mean Corpuscular Hemoglobin Concent 33, Red Cell Distribution Width 13.8, Platelet Count 187, Mean Platelet Volume 10.5, Immature Granulocyte % (Auto) 0, Neutrophils (%) (Auto) 72, Lymphocytes (%) (Auto) 21, Monocytes (%) (Auto) 6, Eosinophils (%) (Auto) 1, Basophils (%) (Auto) 0, Neutrophils # (Auto) 7.2, Lymphocytes # (Auto) 2.1, Monocytes # (Auto) 0.6, Eosinophils # (Auto) 0.1, Basophils # (Auto) 0.0, Immature Granulocyte # (Auto) 0.0 MILLIE HAMLIN DO Sep 16, 2020 08:45
[2020-09-16] MEDS ORDERED: FERROUS SULF 325 MG (IRON) TAB PO SCH (09:00)
[2020-09-16] MEDS: NAPROXEN 250 MG (NAPROSYN) TABLET PO SCH (09:53)
--- NOTE | 2020-09-16 10:38 | Anesthesia-Regional Post-Op ---
Regional Patient Condition Mental Status: Alert, Oriented x3 Circulation: Same as Pre-Op Headache: Absent Sensation: Full Recovery Motor Block: Absent Post Op Complications Complications None Follow Up Care/Instructions Patient Instructions None needed. Anesthesia/Patient Condition Patient is doing well, no complaints, stable vital signs, no apparent adverse anesthesia problems. No complications reported per nursing. CHARLIE GONSALEZ CRNA Sep 16, 2020 10:38
[2020-09-16 11:36] VITALS: BP 109/58
[2020-09-16 16:45] VITALS: BP 109/58
== END 2020-09-16 16:45 | disposition home or self-care (01) | DRG 807 ==
LOC: WSo 19:56 → LDRP 19:56 → WSo 21:27 → LDRP 09-15 16:55
PROVIDERS: ADMIT Obstetrics & Gynecology; ATTEND Obstetrics & Gynecology
PROC: 10E0XZZ Delivery of Products of Conception, External Approach (ICD-10-PCS; principal; 2020-09-15)
PROC: 10907ZC Drainage of Amniotic Fluid, Therapeutic from Products of Conception, Via Natural or Artificial Opening (ICD-10-PCS; 2020-09-15)
PROC: 0HQ9XZZ Repair Perineum Skin, External Approach (ICD-10-PCS; 2020-09-15)
DX: O70.0 First degree perineal laceration during delivery (principal); Z37.0 Single live birth; Z3A.37 37 weeks gestation of pregnancy
CPT/HCPCS: 36415; 81000; 85025; 86850; 86900; 86901; 99212

== ENCOUNTER → 2021-04-26 | Outpatient (CLI) | payer MEDICAID ==
[~2021-04-26] MED LIST changes: +DOCU-239 PO; +FERR325T24 PO
--- NOTE | 2021-04-26 12:45 | Diagnostic Imaging Report ---
PROCEDURE: Pelvic comp/transvaginal sonogram. TECHNIQUE: Complete transabdominal and transvaginal pelvic ultrasound was performed. In addition, limited pelvic Doppler was performed. INDICATION: Left lower quadrant pain and IUD check. Uterus is anteverted measuring 7.4 x 3.5 x 3.6 cm. IUD appears to be well centered in the endometrial canal. Endometrium is 8 mm in thickness. There does appear to be fluid and some debris within the endometrial canal. No myometrial mass is detected. Right ovary measures 2.9 x 1.9 x 1.6 cm and the left ovary measures 2.1 x 1.8 x 1.4 cm. Left ovary does contain a 15 mm cyst. There is normal blood flow to both ovaries. No adnexal mass or free fluid is seen. IMPRESSION: 1. The IUD is appropriately centered in the endometrial canal. There does, however, appear to be some fluid and debris within the endometrial canal. 2. A 15 mm right ovarian cyst. Dictated by: Dictated on workstation # [id number]
== END ==
LOC: RAD 11:30
PROVIDERS: ATTEND Obstetrics & Gynecology
DX: N83.201 Unspecified ovarian cyst, right side (principal); Z97.5 Presence of (intrauterine) contraceptive device
CPT/HCPCS: 76830; 76856

== ENCOUNTER 2022-10-09 08:32 | Emergency (ER) | payer MEDICAID ==
[~2022-10-09] VITALS: Ht 170.1 cm; Wt 79.4 kg
[~2022-10-09 08:32] MED LIST changes: +ACET-11 PO; -ACET1TAB43 PO; +ALBU8.5H6 IH; +MONT-47 PO; -MONT10TA21 PO; -RT-ALBUINH IH
--- NOTE | 2022-10-09 09:07 | ED GU-Female ---
General Chief Complaint: OB < 20 WEEKS Stated Complaint: 8 WEEKS PREG, BLEEDING A LOT VAGINALLY, CRAMPING Nursing Triage Note: PRESENTS THIS AM WITH REPORT OF 8W AND ABNORMAL BLEEDING. REPORTS USING 2 PADS THROUGH THE NIGHT, STATES BLEEDING STARTED LAST NIGHT AROUND 1930, NOW SPOTTING. Source: patient, old records Exam Limitations: no limitations History of Present Illness Date Seen by Provider: Oct 09, 2022 Time Seen by Provider: 08:58 Allergies and Home Medications Allergies Coded Allergies: measles, mumps, and rubella vaccine (Verified Allergy, Severe, HIVES, 09/12/17) Pt. reports that she was told by her mother that she has a severe allergy to the MMR vaccine. Penicillins (Verified Allergy, Mild, Anaphylaxis, 08/21/20) amoxicillin (Verified Allergy, Mild, 12/07/15) cat dander (Verified Allergy, Mild, 12/07/15) erythromycin base (Verified Allergy, Mild, Anaphylaxis, 08/21/20) ibuprofen (Verified Allergy, Mild, Anaphylaxis, 08/21/20) mold (Verified Allergy, Mild, 12/07/15) peanut (Verified Allergy, Mild, 12/07/15) sesame seed (Verified Allergy, Mild, 12/07/15) shrimp (Verified Allergy, Mild, 12/07/15) latex (Verified Allergy, Unknown, 08/21/20) Uncoded Allergies: MAPLE TREES (Allergy, Mild, 12/07/15) Patient Home Medication List Diphenhydramine HCl (Benadryl) 25 Mg Capsule, 25 MG PO, (Reported) Entered as Reported by: AYE RAMOS on 09/14/202043 Docusate Sodium (Dok) 100 Mg Capsule, 100 MG PO BID PRN for CONSTIPATION-1ST LINE Prescribed by: FABRIZIO NAVAS on 09/15/20 154 Ferrous Sulfate (Ferosul) 325 Mg Tablet, 325 MG PO DAILY Prescribed by: FABRIZIO NAVAS on 09/15/20 154 Hydrocodone Bit/Acetaminophen (HYDROcodone/APAP 5 MG/325 MG TAB) 1 Tab Tab, 1 EA PO Q4H PRN for PAIN-MODERATE (5-7) Prescribed by: FABRIZIO NAVAS on 09/15/201548 Loratadine (Claritin) 10 Mg Capsule, 10 MG PO, (Reported) Entered as Reported by: AYE RAMOS on 09/14/202043 Naproxen (Naproxen) 250 Mg Tablet, 250 MG PO BID Prescribed by: FABRIZIO NAVAS on 09/15/20 1549 Pediatric Multivit Comb. No.49 (Flintstones Gummies) 1 Each Tab.chew, 2 EACH PO DAILY, (Reported) Entered as Reported by: LUC FOURNIER on 08/21/20 175 Review of Systems Review of Systems Expected Date of Delivery: May 17, 2023 Past Jdiovwf-Gwisor-Oyxxlg Hx Patient Social History Tobacco Use?: No Use of E-Cig and/or Vaping dev: No Substance use?: No Alcohol Use?: Yes Alcohol Frequency: Once in a while Pt feels they are or have been: No Immunizations Up To Date Tetanus Booster (TDap): Less than 5yrs PED Vaccines UTD: Yes Seasonal Allergies Seasonal Allergies: Yes Past Medical History Surgery/Hospitalization HX: DENIES Surgeries: Yes (DX LAPAROSCOY FOR ENDOMETRIOSIS; COLONOSCOPY) Abdominal, Appendectomy, Tonsillectomy Respiratory: Yes Asthma Cardiac: No Neurological: No Expected Date of Delivery: May 17, 2023 Last Menstrual Period: Aug 03, 2022 Reproductive Disorders: Yes (CHRONIC PELVIC PAIN) Female Reproductive Disorders: Menstrual Problems, Endometriosis Sexually Transmitted Disease: No HIV/AIDS: No Genitourinary: Yes Bladder Infection, UTI-Chronic Gastrointestinal: Yes Irritable Bowel Musculoskeletal: Yes Chronic Back Pain Endocrine: No HEENT: Yes (S/P TONSILLECTOMY) Tonsilitis Cancer: No Psychosocial: Yes Anxiety, Bipolar, Depression Integumentary: Yes Eczema Blood Disorders: No Adverse Reaction/Blood Tranf: No Family Medical History Headache disorder 19 MOTHER Hypertension 19 MOTHER Thyroid disease 19 MOTHER SOCIAL HISTORY: -ETOH--HEAVY USE, CANNOT STATE HOW MUCH-SAYS "ALOT--ENOUGH TO NOT REMEMBER ANYTHING" TO POINT OF PASSING OUT -DRUGS--DENIES USE -SMOKES 1/2 PPD Physical Exam Vital Signs Vital Signs - First Documented 10/09/22 08:40 Temp 36.4 Pulse 74 Resp 18 B/P (MAP) 123/53 (76) Pulse Ox 99 O2 Delivery Room Air Capillary Refill : Height, Weight, BMI Height: 5'7.00" Weight: 209lbs. 0.0oz. 94.534180gj; 27.00 BMI Method:Stated Progress/Results/Core Measures Suspected Sepsis SIRS Temperature: Pulse: 74 Respiratory Rate: 18 Blood Pressure 123 /53 Mean: 76 Results/Orders Lab Results Laboratory Tests Test 10/09/22 08:47 Range/Units Urine Color YELLOW Urine Clarity CLEAR Urine pH 7.0 5-9 Urine Specific [place] 1.020 1.016-1.022 Urine Protein NEGATIVE NEGATIVE Urine Glucose (UA) NEGATIVE NEGATIVE Urine Ketones NEGATIVE NEGATIVE Urine Nitrite NEGATIVE NEGATIVE Urine Bilirubin NEGATIVE NEGATIVE Urine Urobilinogen 0.2 < = 1.0 MG/DL Urine Leukocyte Esterase NEGATIVE NEGATIVE Urine RBC (Auto) 1+ H NEGATIVE Urine RBC 2-5 H /HPF Urine WBC RARE /HPF Urine Squamous Epithelial Cells 5-10 /HPF Urine Crystals PRESENT H /LPF Urine Amorphous Sediment RARE DEUCE URATES H /LPF Urine Bacteria NEGATIVE /HPF Urine Casts NONE /LPF Urine Mucus NEGATIVE /LPF Urine Culture Indicated NO My Orders Orders - SHILPA MARTEL MD Ua Culture If Indicated (10/09/22 09:06) Rhogam Administration (10/09/22 09:21) Us Ob<14 Wks Sngle W/Transvag (10/09/22 09:21) Rho(D) Immune Globulin (Rho(D) Immune Gl (10/09/22 09:45) Medications Given in ED Current Medications Medications Dose Ordered Sig/Julio C Route Start Time Stop Time Status Last Admin Dose Admin Rho Immune Globulin 300 mcg ONCE ONCE IM/IV 10/09/22 09:45 10/09/22 09:46 DC 10/09/22 10:30 300 MCG Vital Signs/I&O 10/09/22 08:40 Temp 36.4 Pulse 74 Resp 18 B/P (MAP) 123/53 (76) Pulse Ox 99 O2 Delivery Room Air Capillary Refill : Blood Pressure Mean: 76 Departure Impression Primary Impression: Subchorionic bleed Qualified Codes: O41.8X10 - Other specified disorders of amniotic fluid and membranes, first trimester, not applicable or unspecified; O46.8X1 - Other antepartum hemorrhage, first trimester Additional Impressions: Vaginal bleeding affecting early Rh negative, maternal Qualified Codes: O26.891 - Other specified related conditions, first trimester; Z67.91 - Unspecified blood type, rh negative Need for rhogam due to Rh negative mother Disposition: 01 HOME, SELF-CARE Condition: Stable Departure-Patient Inst. Decision time for Depature: 10:39 Referrals: FABRIZIO NAVAS DO (PCP/Family) Primary Care Physician Patient Instructions: Bleeding In Early Add. Discharge Instructions: Contact Dr. NAVAS's office for follow-up. Avoid strenuous activity, intercourse, or anything else vaginally until cleared by Dr. NAVAS. You may use Tylenol (acetaminophen) up to 1000 mg every 6 hours as needed for pain and cramping. Drink plenty of clear liquids to stay well-hydrated. Your urinalysis was unremarkable in the ER. Return to care if you have worsening symptoms despite following these instructio ns. All discharge instructions reviewed with patient and/or family. Voiced understanding. Copy Copies To 1: FABRIZIO NAVAS JOSHUA T MD Oct 09, 2022 09:07
[2022-10-09 09:23] LABS: BACTERIA,URINE NEGATIVE /HPF; BILIRUBIN,URINE NEGATIVE (NEGATIVE); CLARITY,URINE CLEAR; COLOR,URINE YELLOW; GLUCOSE, URINE (UA) NEGATIVE (NEGATIVE); KETONES,URINE NEGATIVE (NEGATIVE); LEUKOCYTE ESTERASE ,URINE NEGATIVE (NEGATIVE); NITRITE,URINE NEGATIVE (NEGATIVE); PROTEIN,URINE NEGATIVE (NEGATIVE); WBC,URINE RARE /HPF
[2022-10-09 09:24] LABS: AMORPHOUS SEDIMENT,UR RARE AMOR URATES /LPF
[2022-10-09] MEDS ORDERED: RHO(D) IMMUNE GLOBULIN 300 MCG/2 ML SYRINGE IM/IV ONE (09:45)
--- NOTE | 2022-10-09 10:45 | Diagnostic Imaging Report ---
EXAM: US OB<14 WKS SNGLE W/TRANSVAG INDICATION: 1st trimester vaginal bleeding. EXAM: US OB<14 WKS SNGLE W/TRANSVAG COMPARISON: 04/26/2021. FINDINGS: Normal echogenicity of the uterus measuring 11.5 x 6.0 x 7.3 cm. The right ovary measures 3.3 x 2.1 x 2.4 cm. Normal flow by color Doppler in the right ovary. Corpus luteum in the right ovary measuring up to 1.7 cm. No adnexal mass or cyst. The left ovary is not well seen due to overlying bowel gas. Normal-appearing gestational sac containing a pole. [place] rump length corresponds to an 8 week, 4 day gestation. heart rate 172 bpm. Fluid collection along the gestational sac measures 3.8 x 0.8 x 1.7 cm. IMPRESSION: 1. Single live intrauterine with measurements corresponding to an 8 week, 4 day gestation. heart rate 172 bpm. 2. Subchorionic hemorrhage measuring up to 3.8 cm. Dictated by: Dictated on workstation # [id number]
[2022-10-09 11:12] VITALS: BP 116/66
== END 2022-10-09 11:12 | disposition home or self-care (01) ==
LOC: EDUNIT# 08:32 → ER 08:37
DX: O46.8X1 Other antepartum hemorrhage, first trimester (principal); O26.891 Other specified pregnancy related conditions, first trimester; O99.331 Smoking (tobacco) complicating pregnancy, first trimester; Z3A.08 8 weeks gestation of pregnancy; Z91.040 Latex allergy status; Z67.91 Unspecified blood type, Rh negative
CPT/HCPCS: 76801; 76817; 81000

== ENCOUNTER → 2022-12-30 | Outpatient (CLI) | payer MEDICAID ==
[~2022-12-30] MED LIST changes: -MECL-149 PO; +MECL-291 PO
--- NOTE | 2022-12-30 13:58 | Diagnostic Imaging Report ---
INDICATION: anatomy survey TECHNIQUE: Multiple real-time grayscale images were obtained over the gravid uterus. COMPARISON: None FINDINGS: The cervix measures 3.9 cm in length. Fetus is in breech presentation. Placenta is posterior position and there is no previa. CIELO is normal at 16.57 cm. Following anatomy is visualized and normal: Spine, kidneys, umbilical cord insertion, three-vessel cord, four-chamber heart, stomach, right ventricular outflow tract, left ventricular outflow tract, urinary bladder, cerebral ventricles, lips/nose, diaphragm, cerebellum, cisterna magna. Biometrical measurements are as follows: Biparietal 4.94 cm, age 21 weeks 0 days. Head circumference 17.80 cm, age 20 weeks 2 days. Abdominal circumference 14.94 cm, age 20 weeks 2 days. Femur length 3.48 cm, age 21 weeks 0 days. Sonographic estimate age: 20 weeks 5 days. Sonographic estimated date of delivery: 05/14/2023. Provided clinical dates by LMP is 20 weeks 1 day. Estimated Weight: 360 gm (+/- 53 gm). LMP percentile: 68%. heart rate: 143 beats per minute. number: 1 of 1. IMPRESSION: 1. Single live intrauterine has normal anatomy survey. 2. Estimated gestational age is concordant with clinical dating. Dictated by: Dictated on workstation # [id number]
== END ==
LOC: RAD 08:08
PROVIDERS: ATTEND Nurse Practitioner Women's Health
DX: Z34.82 Encounter for supervision of other normal pregnancy, second trimester (principal)
CPT/HCPCS: 76805